=== PATIENT | male | born 1960 | race Caucasian/White ===

== ENCOUNTER → 2017-05-27 | Outpatient (CLI) | payer OTHER ==
[2017-05-27 18:16] LABS: Blood Urea Nitrogen 19 mg/dL (9-20); Non-African American GFR(MDRD) >60 (>60 ml/min/1.73 sqM)
--- NOTE | 2017-05-27 21:17 | CT ---
EXAMINATION TYPE: CT chest w con DATE OF EXAM: 05/27/2017 COMPARISON: NONE HISTORY: Left anterior costal margin mass. CT DLP: 724.00 mGycm Automated exposure control for dose reduction was used. CONTRAST: CT scan of the chest is performed with IV Contrast, patient injected with 100 mL of Omnipaque 300. FINDINGS: The lungs are clear of consolidation. There is no sign of a pulmonary mass. There is no pleural effus ion. There is no mediastinal adenopathy. Thoracic aorta shows normal size and contour. There is no si gn of aneurysm or dissection. There are no hilar masses. There is spurring in the thoracic spine. I s ee no evidence of a rib fracture. There is no evidence of soft tissue mass involving the chest wall. IMPRESSION: Negative CT scan of the chest. No evidence of a chest wall mass.
== END | disposition home or self-care (01) ==
LOC: RADCTMAIN 17:37
PROVIDERS: ATTEND Family Medicine
DX: R22.2 Localized swelling, mass and lump, trunk (principal)
CPT/HCPCS: 82565; 84520; 71260; 36415; Q9967

== ENCOUNTER 2017-07-26 06:32 | Day surgery (SDC) | payer OTHER ==
[2017-07-23 15:37] VITALS: BMI 32.1
[~2017-07-26 06:32] MED LIST: LACTATED RINGERS 1,000 ML IV SCH
[2017-07-26 07:08] VITALS: TEMP 96.1
[2017-07-26 07:22] LABS: Glucose,Whole Blood 139 mg/dL (75-99)
[2017-07-26] MEDS ORDERED: LIDOCAINE 1% INJ 10MG/ML (20 ML MDV) ONE (07:43)
[2017-07-26] MEDS ORDERED: PROPOFOL 10 MG/ML 20 ML VIAL IV ONE (07:43)
--- NOTE | 2017-07-26 07:52 | P.GSHP ---
History of Present Illness H&P Date: 07/26/17 Chief Complaint: colon cancer screening patient returned today for colonoscopy. He has not had one done previously. No bowel related complaints. No rectal bleeding or melena. No family history of colon cancer. Past Medical History Past Medical History: Diabetes Mellitus, Hyperlipidemia, Hypertension History of Any Multi-Drug Resistant Organisms: None Reported Past Surgical History: No Surgical Hx Reported Additional Past Surgical History / Comment(s): top teeth pulled Past Anesthesia/Blood Transfusion Reactions: No Reported Reaction Smoking Status: Former smoker - Past Family History Mother Family Medical History: No Reported History Medications and Allergies Home Medications Medication Instructions Recorded Confirmed Type Lisinopril [Zestril] 10 mg PO DAILY 08/31/16 07/26/17 History metFORMIN HCL 1,000 mg PO BID 08/31/16 07/26/17 History Aspirin 81 mg PO DAILY 07/23/17 07/26/17 History Atorvastatin [Lipitor] 80 mg PO DAILY 07/23/17 07/26/17 History Glimepiride [Amaryl] 4 mg PO BID 07/23/17 07/26/17 History Allergies Allergy/AdvReac Type Severity Reaction Status Date / Time No Known Allergies Allergy Verified 07/23/17 15:14 Surgical - Exam Vital Signs Temp Pulse Resp BP Pulse Ox 96.1 F L 69 20 173/92 96 07/26/17 07:01 07/26/17 07:01 07/26/17 07:01 07/26/17 07:01 07/26/17 07:01 Physical exam: General: Well-developed, well-nourished HEENT: Normocephalic, sclerae nonicteric Abdomen: Nontender, nondistended Extremities: No edema Neuro: Alert and oriented Results - Labs Abnormal Lab Results - Last 24 Hours (Table) 07/26/17 Range/Units 07:07 POC Glucose (mg/dL) 139 H (75-99) mg/dL Assessment and Plan (1) Colon cancer screening Narrative/Plan: Will proceed with colonoscopy at this time. Status: Acute
--- NOTE | 2017-07-26 08:07 | P.OP ---
Date of Procedure: 07/26/17 Procedure(s) Performed: PREOPERATIVE DIAGNOSIS: colon cancer screening POSTOPERATIVE DIAGNOSIS: sigmoid colon polyp PROCEDURE: Colonoscopy with snare polypectomy ANESTHESIA: MAC SURGEON: Rj Salinas M.D. SPECIMENS: sigmoid colon polyp ENDOSCOPIC PROCEDURE: The patient was placed on the endoscopy table in the left decubitus position. The Olympus colonoscope was inserted into the anus and passed under direct visualization to the base of the cecum. The appendiceal orifice was visualized. From that point the scope was slowly withdrawn inspecting all surfaces carefully. There were no neoplastic inflammatory or polypoid lesions throughout the cecum, ascending, transverse, and descending colon. In the sigmoid colon a small polyp was identified and removed using the snare with cautery technique. There was no visible diverticulosis. Digital rectal examination was normal. The patient was taken to the recovery room in stable condition per anesthesia guidelines. RECOMMENDATIONS: await biopsy results. Anticipate follow-up colonoscopy 5 years.
[2017-07-26 08:34] VITALS: BP 161/91; PULSE 67; RESP 18
== END 2017-07-26 08:45 | disposition home or self-care (01) ==
LOC: ORWHC2ENDO 06:32
PROVIDERS: ATTEND Surgery
DX: Z12.11 Encounter for screening for malignant neoplasm of colon (principal); D12.5 Benign neoplasm of sigmoid colon; E11.9 Type 2 diabetes mellitus without complications; Z79.84 Long term (current) use of oral hypoglycemic drugs; E78.5 Hyperlipidemia, unspecified; I10 Essential (primary) hypertension; Z87.891 Personal history of nicotine dependence; Z79.82 Long term (current) use of aspirin; Z79.899 Other long term (current) drug therapy
CPT/HCPCS: 88305; 45385; J2001; J2704

== ENCOUNTER 2018-03-24 11:24 | Emergency (ER) | payer OTHER ==
[2018-03-24 11:35] VITALS: BP 182/91; PULSE 77; RESP 18; TEMP 98
[2018-03-24] MEDS ORDERED: KETOROLAC 60 MG/2 ML VIAL IM STA (11:54)
--- NOTE | 2018-03-24 12:10 | ED ---
General Adult HPI - General Chief complaint: Back Pain/Injury Stated complaint: Lower Back Pain/Leg Pain Time Seen by Provider: 03/24/18 11:40 Source: patient, RN notes reviewed Mode of arrival: ambulatory Limitations: no limitations - History of Present Illness Initial comments: Patient 58-year-old male presented to the emergency room today with chief complaint of low back pain on the right side radiating down the right leg. Patient denies any bowel or bladder incontinence retention. Denies any specific injury. States symptoms started 4 days ago. Does admit that he has some pain radiating down approximately to the right side. States worse with certain movements. Patient denies any recent fever, chills, shortness of breath , chest pain, back pain, abdominal pain, nausea or vomiting, dysuria or hematuria, constipation or diarrhea, headaches or visual changes, or any other complaints. - Related Data Home Medications Medication Instructions Recorded Confirmed metFORMIN HCL 1,000 mg PO BID 08/31/16 03/24/18 Atorvastatin [Lipitor] 80 mg PO DAILY 07/23/17 03/24/18 Glimepiride [Amaryl] 4 mg PO BID 07/23/17 03/24/18 Fluticasone Nasal [place] [Flonase 1 spray EA NOSTRIL DAILY 03/24/18 03/24/18 Nasal [place]] Lisinopril 40 mg PO DAILY 03/24/18 03/24/18 Previous Rx's Medication Instructions Recorded Cyclobenzaprine [Flexeril] 10 mg PO TID #20 tab 03/24/18 Ibuprofen [Motrin] 800 mg PO Q6HR #30 tab 03/24/18 Allergies Allergy/AdvReac Type Severity Reaction Status Date / Time No Known Allergies Allergy Verified 03/24/18 11:49 Review of Systems ROS Statement: Those systems with pertinent positive or pertinent negative responses have been documented in the HPI. ROS Other: All systems not noted in ROS Statement are negative. Past Medical History Past Medical History: Diabetes Mellitus, Hyperlipidemia, Hypertension History of Any Multi-Drug Resistant Organisms: None Reported Past Surgical History: No Surgical Hx Reported Additional Past Surgical History / Comment(s): top teeth pulled Past Anesthesia/Blood Transfusion Reactions: No Reported Reaction Past Psychological History: No Psychological Hx Reported Smoking Status: Former smoker Past Drug Use History: Marijuana - Past Family History Mother Family Medical History: No Reported History General Exam Limitations: no limitations Course Vital Signs 03/24/18 11:32 Temperature 98.0 F Pulse Rate 77 Respiratory 18 Rate Blood Pressure 182/91 O2 Sat by Pulse 97 Oximetry Medical Decision Making - Medical Decision Making Patient's x-rays reviewed shows no acute abnormalities. Results were discussed with patient. He'll be discharged home continue anti-inflammatories for his symptoms. Patient advised follow family doctor or orthopedics for further evaluation and possible MRI for his symptoms of radicular pain coming on the right leg. Occasional bowel bladder incontinence retention. No saddle anesthesia. Patient will be discharged advised to return if symptoms increase or worsen. Disposition Clinical Impression: Acute low back pain, Lumbar radiculopathy, acute Disposition: HOME SELF-CARE Condition: Good Instructions: Acute Low Back Pain (ED) Additional Instructions: Please use medication as discussed. Please follow-up with orthopedic/family doctor in the next 2 days. Please return to emergency room if the symptoms increase or worsen or for any other concerns. Prescriptions: Cyclobenzaprine [Flexeril] 10 mg PO TID #20 tab Ibuprofen [Motrin] 800 mg PO Q6HR #30 tab Is patient prescribed a controlled substance at d/c from ED?: No Referrals: Maciel Morgan MD [Primary Care Provider] - 1-2 days Carlos Ramirez DO [Doctor of Osteopathic Medicine] - 1-2 days Time of Disposition: 12:35
--- NOTE | 2018-03-24 12:13 | XR ---
EXAMINATION TYPE: XR lumbar spine 2 or 3V DATE OF EXAM: 03/24/2018 COMPARISON: NONE HISTORY: low back pain TECHNIQUE: Three-view lumbar spine FINDINGS: There 5 lumbar-type vertebral bodies. The pedicles are intact. Mild disc space narrowing is present L4-5. Remaining disc heights are preserved. Mild spondylosis at the thoracolumbar junction. IMPRESSION: 1. Mild degenerative disc change L4-5.
== END 2018-03-24 13:10 | disposition home or self-care (01) ==
LOC: EC 11:24
DX: M54.16 Radiculopathy, lumbar region (principal); E11.9 Type 2 diabetes mellitus without complications; I10 Essential (primary) hypertension; E78.5 Hyperlipidemia, unspecified; Z79.84 Long term (current) use of oral hypoglycemic drugs; Z79.899 Other long term (current) drug therapy; Z87.891 Personal history of nicotine dependence
CPT/HCPCS: 99283; 96372; 72100; J1885

== ENCOUNTER 2018-03-25 13:03 | Emergency (ER) | payer OTHER ==
[2018-03-25 13:15] VITALS: BP 191/85; PULSE 95; RESP 18; TEMP 97.7
[2018-03-25] MEDS ORDERED: HYDROcodone/APAP 5-325MG 1 EACH TAB PO STA (13:51)
--- NOTE | 2018-03-25 14:55 | ED ---
Back Pain HPI - General Chief Complaint: Back Pain/Injury Stated Complaint: back pain - revisit Time Seen by Provider: 03/25/18 13:45 Source: patient, RN notes reviewed Mode of arrival: ambulatory Limitations: no limitations - History of Present Illness Initial Comments: 58-year-old male present emergency from chief complaint of low back pain. Patient was seen here yesterday secondary to pain. He states that the Toradol did help some but states she still has pain. Patient states that he had some hesitancy with urination but states he was able to go. Patient denies any bowel incontinence. Patient states he does have some pain that radiates down his right leg, into his right thigh region. Patient denies any abdominal pain. Patient denies any history of back pain. Patient states he did not see his PCP has normal drug ALLERGIES. - Related Data Home Medications Medication Instructions Recorded Confirmed metFORMIN HCL 1,000 mg PO BID 08/31/16 03/24/18 Atorvastatin [Lipitor] 80 mg PO DAILY 07/23/17 03/24/18 Glimepiride [Amaryl] 4 mg PO BID 07/23/17 03/24/18 Fluticasone Nasal [place] [Flonase 1 spray EA NOSTRIL DAILY 03/24/18 03/24/18 Nasal [place]] Lisinopril 40 mg PO DAILY 03/24/18 03/24/18 Previous Rx's Medication Instructions Recorded Cyclobenzaprine [Flexeril] 10 mg PO TID #20 tab 03/24/18 Ibuprofen [Motrin] 800 mg PO Q6HR #30 tab 03/24/18 Hydrocodone/Acetaminophen [[place] 1 tab PO Q6HR PRN #12 tab 03/25/18 5-325] Tamsulosin [Flomax] 0.4 mg PO DAILY #7 cap 03/25/18 Allergies Allergy/AdvReac Type Severity Reaction Status Date / Time No Known Allergies Allergy Verified 03/25/18 13:15 Review of Systems ROS Statement: Those systems with pertinent positive or pertinent negative responses have been documented in the HPI. ROS Other: All systems not noted in ROS Statement are negative. Past Medical History Past Medical History: Diabetes Mellitus, Hyperlipidemia, Hypertension History of Any Multi-Drug Resistant Organisms: None Reported Past Surgical History: No Surgical Hx Reported Additional Past Surgical History / Comment(s): top teeth pulled Past Anesthesia/Blood Transfusion Reactions: No Reported Reaction Past Psychological History: No Psychological Hx Reported Smoking Status: Former smoker Past Drug Use History: Marijuana - Past Family History Mother Family Medical History: No Reported History General Exam Limitations: no limitations General appearance: alert, in no apparent distress Head exam: Present: atraumatic, normocephalic, normal inspection Neck exam: Present: normal inspection, full ROM. Absent: tenderness, meningismus, lymphadenopathy Respiratory exam: Present: normal lung sounds bilaterally. Absent: respiratory distress, wheezes, rales, rhonchi, stridor Cardiovascular Exam: Present: regular rate, normal rhythm, normal heart sounds. Absent: systolic murmur, diastolic murmur, rubs, gallop, clicks GI/Abdominal exam: Present: soft, normal bowel sounds. Absent: distended, tenderness, guarding, rebound, rigid Extremities exam: Present: normal inspection, full ROM, normal capillary refill. Absent: tenderness, pedal edema, joint swelling, calf tenderness Back exam: Present: full ROM, paraspinal tenderness, other (Pain with right straight leg raise). Absent: tenderness, vertebral tenderness Psychiatric exam: Present: normal affect, normal mood Skin exam: Present: warm, dry, intact, normal color. Absent: rash Course Vital Signs 03/25/18 13:14 Temperature 97.7 F Pulse Rate 95 Respiratory 18 Rate Blood Pressure 191/85 O2 Sat by Pulse 98 Oximetry Medical Decision Making - Medical Decision Making 58-year-old male presents from for back pain. Patient had CT which shows degenerative disc disease, herniated disc L4-L5 patient complain of some hesitancy with urination though is able to urinate twice in the emergency department. Patient did have a bladder scan which patient did not have a large residual after second urination. Patient does not reveal evidence of urinary tract infection. Patient may be having some BPH type symptoms. Patient we discharged on Flomax and Hoven. Patient will follow-up with Dr. Ramirez orthopedic back specialist. - Lab Data Lab Results 03/25/18 Range/Units 16:23 Urine Color Yellow Urine Appearance Clear (Clear) Urine pH 6.0 (5.0-8.0) Ur Specific [place] 1.012 (1.001-1.035) Urine Protein Negative (Negative) Urine Glucose (UA) Trace H (Negative) Urine Ketones Trace H (Negative) Urine Blood Trace H (Negative) Urine Nitrite Negative (Negative) Urine Bilirubin Negative (Negative) Urine Urobilinogen <2.0 (<2.0) mg/dL Ur Leukocyte Esterase Negative (Negative) Urine RBC 2 (0-5) /hpf Urine WBC <1 (0-5) /hpf Ur Squamous Epith Cells <1 (0-4) /hpf Urine Mucus Rare H (None) /hpf Disposition Clinical Impression: Lumbar radiculopathy, acute, Acute low back pain Disposition: HOME SELF-CARE Condition: Stable Instructions: Acute Low Back Pain (ED) Additional Instructions: Please return to the Emergency Department if symptoms worsen or any other concerns. Prescriptions: Hydrocodone/Acetaminophen [[place] 5-325] 1 tab PO Q6HR PRN #12 tab PRN Reason: Pain Tamsulosin [Flomax] 0.4 mg PO DAILY #7 cap Is patient prescribed a controlled substance at d/c from ED?: Yes When asked, does pt state using other controlled substances?: No If prescribed controlled substance>3 days was MAPS reviewed?: Prescribed <3 Days If opioid is for acute pain is fill amount 7 days or less?: Yes If Rx opioid, was Start Talking consent form obtained?: Yes Referrals: Macile Morgan MD [Primary Care Provider] - 1-2 days Carlos Ramirez DO [Doctor of Osteopathic Medicine] - 1-2 days Time of Disposition: 16:35
--- NOTE | 2018-03-25 15:13 | CT ---
EXAMINATION TYPE: CT lumbar spine wo con DATE OF EXAM: 03/25/2018 3:01 PM COMPARISON: NONE HISTORY: Low back pain, no known injury. CT DLP: 965 mGycm Automated exposure control for dose reduction was used. TECHNIQUE: Unenhanced CT of the lumbar spine was performed. Bone and soft tissue window settings are submitted as well as coronal and sagittal reconstructions. FINDINGS: Moderate multilevel degenerative disc disease of the lumbar spine is seen as Schmorl's node of the superior endplate of L5, vacuum disc disease at L1-L2, anterior osteophytes, multilevel disc desiccation and facet arthropathy. There is no evidence of vertebral body height loss or malalignment of the lumbar spine. The scoliotic curvature. Sacroiliac joints are symmetric. Nonobstructing right midpole renal calculus measures approximately 5 mm. Descending thoracic aorta is upper limits of norm al size measuring 2.9 cm. L1-L2: There is a broad-based disc bulge and facet arthropathy resulting in mild bilateral neural for aminal narrowing. No spinal canal stenosis. L2-L3: There is a broad-based disc bulge and minimal facet arthropathy resulting in minimal bilateral neural foraminal narrowing, left greater than right is the disc bulges left eccentric. No spinal can al stenosis. L3-L4: There is a broad-based disc bulge that in combination with facet arthropathy and ligamentum fl avum buckling create moderate to severe right neural foraminal narrowing and moderate left neural for aminal narrowing as these bulges right eccentric. There is also resultant mild spinal canal stenosis. L4-L5: A focal central disc protrusion/herniation is seen superimposed upon a broad-based disc bulge creating mild to moderate spinal canal stenosis and mild bilateral neural foraminal narrowing. Facet arthropathy is also seen at this level. L5-S1: There is a broad-based disc bulge and facet arthropathy without significant neural foraminal n arrowing or spinal canal stenosis. IMPRESSION: 1. Focal central disc herniation at L4-L5 creating mild to moderate spinal canal stenosis and mild bi lateral neural foraminal narrowing. MRI could be performed to more accurately assess degree of neurof oraminal narrowing and spinal canal stenosis. 2. Moderate multilevel degenerative disc disease resulting in other levels of spinal canal stenosis i n variable degrees of neural foraminal narrowing as discussed above. 3. No evidence of vertebral body height loss or malalignment of the lumbar spine.
[2018-03-25] MEDS ORDERED: TAMSULOSIN 0.4 MG CAP.ER.24H PO STA (15:38)
[2018-03-25 16:32] LABS: Appearance,Urine Clear (Clear); Bilirubin,Urine Negative (Negative); Blood,Urine Trace (Negative); Color,Urine Yellow; Glucose,Urine (UA) Trace (Negative); Ketones,Urine Trace (Negative); Leukocyte Esterase,Urine Negative (Negative); Mucus,Urine Rare /hpf; Nitrite,Urine Negative (Negative); Protein,Urine Negative (Negative); RBC,Urine 2 /hpf (0-5); Specific Gravity,Urine 1.012 (1.001-1.035); Squamous Epithelial Cell,Urine <1 /hpf (0-4); Urobilinogen,Urine <2.0 mg/dL (<2.0); WBC,Urine <1 /hpf (0-5)
== END 2018-03-25 16:55 | disposition home or self-care (01) ==
LOC: EC 13:03
DX: M51.16 Intervertebral disc disorders with radiculopathy, lumbar region (principal); E11.9 Type 2 diabetes mellitus without complications; E78.5 Hyperlipidemia, unspecified; I10 Essential (primary) hypertension; Z79.84 Long term (current) use of oral hypoglycemic drugs; Z79.899 Other long term (current) drug therapy; Z87.891 Personal history of nicotine dependence
CPT/HCPCS: 51798; 72131; 81001; 87086; 99284

== ENCOUNTER 2018-04-02 11:01 | Emergency (ER) | payer OTHER ==
[2018-04-02 11:47] VITALS: RESP 18
[2018-04-02] MEDS ORDERED: ORPHENADRINE 30 MG/ML 2 ML VIAL IM STA (12:34)
[2018-04-02] MEDS ORDERED: KETOROLAC 60 MG/2 ML VIAL IM STA (12:34)
[2018-04-02] MEDS ORDERED: traMADol 50 MG STARTER PACK 3 TAB BTL PO STA (12:34)
[2018-04-02 12:46] LABS: Appearance,Urine Clear (Clear); Bilirubin,Urine Negative (Negative); Blood,Urine Negative (Negative); Color,Urine Yellow; Glucose,Urine (UA) Trace (Negative); Ketones,Urine 2+ (Negative); Leukocyte Esterase,Urine Negative (Negative); Nitrite,Urine Negative (Negative); PH, Urine 6.5 (5.0-8.0); Protein,Urine Trace (Negative); Specific Gravity,Urine 1.013 (1.001-1.035); Urobilinogen,Urine <2.0 mg/dL (<2.0)
--- NOTE | 2018-04-02 12:56 | ED ---
Back Pain HPI - General Chief Complaint: Back Pain/Injury Stated Complaint: back pain Time Seen by Provider: 04/02/18 11:59 Source: patient, RN notes reviewed, old records reviewed Limitations: no limitations - History of Present Illness Initial Comments: This patient is a 58 year old male with CC of two weeks of lower back pain radiating down his R leg. He reports no fall or twisting motion to cause this. HE has been on steriods, pain medication, and muscle relaxer. He reports he is out of his muscle relaxer and does not like taking pain medication due to constipation. He also reports that his blood sugar was elevated flowers to steriods. Patient denies saddle anesthesias. - Related Data Home Medications Medication Instructions Recorded Confirmed metFORMIN HCL 1,000 mg PO BID 08/31/16 04/02/18 Atorvastatin [Lipitor] 80 mg PO DAILY 07/23/17 04/02/18 Glimepiride [Amaryl] 4 mg PO BID 07/23/17 04/02/18 Fluticasone Nasal [place] [Flonase 1 spray EA NOSTRIL DAILY 03/24/18 04/02/18 Nasal [place]] Lisinopril 40 mg PO DAILY 03/24/18 04/02/18 Previous Rx's Medication Instructions Recorded Cyclobenzaprine [Flexeril] 10 mg PO TID #20 tab 03/24/18 Ibuprofen [Motrin] 800 mg PO Q6HR #30 tab 03/24/18 Hydrocodone/Acetaminophen [[place] 1 tab PO Q6HR PRN #12 tab 03/25/18 5-325] Tamsulosin [Flomax] 0.4 mg PO DAILY #7 cap 03/25/18 Cyclobenzaprine [Flexeril] 10 mg PO TID #15 tab 04/02/18 Ibuprofen [Motrin] 600 mg PO Q8HR PRN #20 tab 04/02/18 traMADol HCL [Ultram] 50 mg PO Q4HR PRN 3 Days #18 tab 04/02/18 Allergies Allergy/AdvReac Type Severity Reaction Status Date / Time No Known Allergies Allergy Verified 04/02/18 12:58 Review of Systems ROS Statement: Those systems with pertinent positive or pertinent negative responses have been documented in the HPI. ROS Other: All systems not noted in ROS Statement are negative. Past Medical History Past Medical History: Diabetes Mellitus, Hyperlipidemia, Hypertension History of Any Multi-Drug Resistant Organisms: None Reported Past Surgical History: No Surgical Hx Reported Additional Past Surgical History / Comment(s): top teeth pulled Past Anesthesia/Blood Transfusion Reactions: No Reported Reaction Past Psychological History: No Psychological Hx Reported Smoking Status: Former smoker Past Drug Use History: Marijuana - Past Family History Mother Family Medical History: No Reported History General Exam - General Exam Comments Initial Comments: Well appearing 58 year old male, no distress. Limitations: no limitations General appearance: alert Head exam: Present: atraumatic, normocephalic, normal inspection Eye exam: Present: normal appearance, PERRL, EOMI. Absent: scleral icterus, conjunctival injection, periorbital swelling ENT exam: Present: normal exam, mucous membranes moist Neck exam: Present: normal inspection. Absent: tenderness, meningismus, lymphadenopathy Respiratory exam: Present: normal lung sounds bilaterally. Absent: respiratory distress, wheezes, rales, rhonchi, stridor Cardiovascular Exam: Present: regular rate, normal rhythm, normal heart sounds. Absent: systolic murmur, diastolic murmur, rubs, gallop, clicks Extremities exam: Present: normal inspection, tenderness (lumbar and R sciatic notch tenderness. Positive straight leg test. ), normal capillary refill. Absent: full ROM, pedal edema, joint swelling, calf tenderness Psychiatric exam: Present: normal affect, normal mood Skin exam: Present: warm, dry, intact, normal color. Absent: rash Course Vital Signs 04/02/18 04/02/18 11:44 13:16 Temperature 97.9 F 98.1 F Pulse Rate 103 H 75 Respiratory 18 18 Rate Blood Pressure 140/107 159/91 O2 Sat by Pulse 99 96 Oximetry Medical Decision Making - Medical Decision Making 58 year old male with R sciatic back pain for 2 weeks, out of muscle relaxer and pain medication. Patient has tenderness and positive straight leg test. REviewed CT scan of lumbar spine from last week and he has L4-L5 disc herniation and spinal canal stenosis. Discussed he needs to see a occupational health specialist. Patietn given Norflex, toradol, and ultram starter pack. Discussed follow up and return parameters discussed. Will start patient on flexeril and ultram. - Lab Data Lab Results 04/02/18 Range/Units 12:28 Urine Color Yellow Urine Appearance Clear (Clear) Urine pH 6.5 (5.0-8.0) Ur Specific [place] 1.013 (1.001-1.035) Urine Protein Trace H (Negative) Urine Glucose (UA) Trace H (Negative) Urine Ketones 2+ H (Negative) Urine Blood Negative (Negative) Urine Nitrite Negative (Negative) Urine Bilirubin Negative (Negative) Urine Urobilinogen <2.0 (<2.0) mg/dL Ur Leukocyte Esterase Negative (Negative) - Radiology Data Radiology results: report reviewed Disposition Clinical Impression: Right-sided low back pain with sciatica Disposition: HOME SELF-CARE Condition: Good Instructions: Acute Low Back Pain (ED) Additional Instructions: Patient should follow-up with primary care provider and occupational health specialist. Patient should take the medications as prescribed. Return to emergency department if any alarming signs or symptoms occur. Prescriptions: Cyclobenzaprine [Flexeril] 10 mg PO TID #15 tab Ibuprofen [Motrin] 600 mg PO Q8HR PRN #20 tab PRN Reason: Pain traMADol HCL [Ultram] 50 mg PO Q4HR PRN 3 Days #18 tab PRN Reason: Pain Is patient prescribed a controlled substance at d/c from ED?: Yes When asked, does pt state using other controlled substances?: No If prescribed controlled substance>3 days was MAPS reviewed?: Prescribed <3 Days If opioid is for acute pain is fill amount 7 days or less?: Yes If Rx opioid, was Start Talking consent form obtained?: No Referrals: Maciel Morgan MD [Primary Care Provider] - 1-2 days Carlos Ramirez DO [Doctor of Osteopathic Medicine] - 1-2 days Time of Disposition: 12:54
[2018-04-02 13:17] VITALS: BP 159/91; PULSE 75; TEMP 98.1
== END 2018-04-02 13:16 | disposition home or self-care (01) ==
LOC: EC 11:01
DX: M54.41 Lumbago with sciatica, right side (principal); M51.16 Intervertebral disc disorders with radiculopathy, lumbar region; M48.061 Spinal stenosis, lumbar region without neurogenic claudication; K59.00 Constipation, unspecified; E78.5 Hyperlipidemia, unspecified; I10 Essential (primary) hypertension; E09.65 Drug or chemical induced diabetes mellitus with hyperglycemia; T38.0X5A Adverse effect of glucocorticoids and synthetic analogues, initial encounter; Z87.891 Personal history of nicotine dependence; Z79.51 Long term (current) use of inhaled steroids; Z79.84 Long term (current) use of oral hypoglycemic drugs; Z79.899 Other long term (current) drug therapy
CPT/HCPCS: 81003; 99284; 96372 ×2; J2360; J1885

== ENCOUNTER → 2018-04-04 | Outpatient (CLI) | payer OTHER ==
--- NOTE | 2018-04-04 13:14 | CT ---
EXAMINATION TYPE: CT lumbar spine wo con DATE OF EXAM: 04/04/2018 12:07 PM COMPARISON: CT lumbar spine from 10 days ago. HISTORY: Severe low back pain CT DLP: 1303.1 mGycm Automated exposure control for dose reduction was used. Unenhanced CT of the lumbar spine was performed. Bone and soft tissue window settings are submitted as well as coronal and sagittal reconstructions. 5 lumbar-type vertebra are redemonstrated. Lumbar spine redemonstrates straightened alignment. There is no acute fracture or dislocation seen. There is stable mild to moderate disc space narrowing with mild anterior spurring L4-L5 level. Vertebral body heights are maintained. There is vacuum disc pheno janel with mild disc space narrowing L1-L2 level as well as moderate to severe anterior and lateral s purring redemonstrated. Suspect subchondral cystic change L5-S1 level. Posterior disc herniations are present at L3-L4 through L5-S1 levels on sagittal images slightly most prominent L3-L4 level. Axial images at T12-L1 level show mild facet arthropathy otherwise are felt within normal limits. Axial images at L1-L2 level redemonstrate mild to moderate broad disc bulge minimally effacing anteri or thecal sac with vacuum disc phenomenon. There is mild facet arthropathy bilaterally. Bilateral maria c ral foramina remain patent. No significant change from prior. Axial images at L2-L3 level show mild facet arthropathy and mild broad disc bulge minimally effacing anterior thecal sac, there is mild left greater than right anterior-inferior neural foraminal narrowi ng. There is no significant change from prior. Axial images at L3-L4 level show moderate facet degenerative changes bilaterally. There is moderate b road-based posterior disc protrusion. There is anterior and posterior lateral spinal canal effacement causing mild spinal canal stenosis. There is moderate to severe right greater than left neural [place] inal narrowing. Encroachment on right L3 nerve is felt present with loss of surrounding fat seen on s agittal images. No significant change from prior. Axial images at L4-L5 level show moderate facet degenerative changes bilaterally. There is broad disc bulge with central disc protrusion effacing anterior thecal sac. There is moderate left and mild rig ht-sided anterior inferior neural foraminal narrowing. There is no significant change from prior. Axial images at L5-S1 level redemonstrate moderate facet degenerative changes bilaterally. There is c entral disc protrusion seen but spinal canal is preserved. Bilateral neural foramina are patent. There is moderate atherosclerotic change in the visualized abdominal aorta. Previously visualized rig ht upper to mid pole 5 mm calculus is not clearly seen on current exam may be outside Field of view. IMPRESSION: Straightening of lumbar spine with multilevel degenerative changes most prominent at L3-L 4 level as detailed above. No significant change from CT exam performed 10 days earlier.
== END ==
LOC: RADCTMAIN 11:43
PROVIDERS: ATTEND Family Medicine
DX: M47.816 Spondylosis without myelopathy or radiculopathy, lumbar region (principal)
CPT/HCPCS: 72131

== ENCOUNTER 2018-04-21 12:46 | Observation (INO) | payer OTHER ==
[2018-04-21] MEDS ORDERED: SODIUM CHLORIDE 0.9% 1,000 ML IV STA ×2 (14:12)
[2018-04-21] MEDS ORDERED: ORPHENADRINE 30 MG/ML 2 ML VIAL IVP STA (14:13)
[2018-04-21] MEDS ORDERED: KETOROLAC 30 MG/ML 1 ML VIAL IVP STA (14:13)
[2018-04-21] MEDS ORDERED: PANTOPRAZOLE 40 MG/10 ML VIAL IVP STA (14:13)
[2018-04-21] MEDS ORDERED: MAG HYDROX/AL HYDROX/SIMETH 30 ML, HYOSCYAMINE ELIXIR 10 ML, CIMETIDINE HCL 300 MG, LID... PO STA ×4 (14:13)
--- NOTE | 2018-04-21 14:15 | ED ---
Back Pain HPI - General Chief Complaint: Back Pain/Injury Stated Complaint: sciatic pain Time Seen by Provider: 04/21/18 13:43 Source: patient, RN notes reviewed, old records reviewed Limitations: no limitations - History of Present Illness Initial Comments: Patient is a 50-year-old male chief complaint of some right-sided back lumbar pain radiates down his right leg. He has had pain over the anterior aspect of the thigh. He has had 2 CT scans x-rays in the emergency department within the past 5 weeks. There is evidence of lumbar disc disease. Patient reports that his MRI came back normal and primary care provider states that is nothing wrong with him. He try to follow-up with a psychological operations specialist but they will not take it with his insurance. Patient states that he has been taking multiple pain medications and now is feeling nauseous and has developed some abdominal pain related to taking the medications. He reports that his lost 30 pounds within the past few weeks due to a poor appetite. He denies any fever or chills. Patient also reports that he is having some numbness and tingling down the first through third fingers of his right hand. - Related Data Home Medications Medication Instructions Recorded Confirmed metFORMIN HCL 1,000 mg PO BID 08/31/16 04/21/18 Atorvastatin [Lipitor] 80 mg PO DAILY 07/23/17 04/21/18 Glimepiride [Amaryl] 4 mg PO BID 07/23/17 04/21/18 Fluticasone Nasal [place] [Flonase 1 spray EA NOSTRIL DAILY 03/24/18 04/21/18 Nasal [place]] Lisinopril 40 mg PO DAILY 03/24/18 04/21/18 Ergocalciferol (Vitamin D2) 50,000 unit PO MO 04/21/18 04/21/18 [Vitamin D2] Multivitamins, Thera [Multivitamin 1 tab PO DAILY 04/21/18 04/21/18 (formulary)] Allergies Allergy/AdvReac Type Severity Reaction Status Date / Time No Known Allergies Allergy Verified 04/21/18 13:51 Review of Systems ROS Statement: Those systems with pertinent positive or pertinent negative responses have been documented in the HPI. ROS Other: All systems not noted in ROS Statement are negative. Past Medical History Past Medical History: Diabetes Mellitus, Hyperlipidemia, Hypertension Additional Past Medical History / Comment(s): back pain History of Any Multi-Drug Resistant Organisms: None Reported Past Surgical History: No Surgical Hx Reported Additional Past Surgical History / Comment(s): top teeth pulled Past Anesthesia/Blood Transfusion Reactions: No Reported Reaction Past Psychological History: No Psychological Hx Reported Smoking Status: Former smoker Past Alcohol Use History: None Reported Past Drug Use History: Marijuana - Past Family History Mother Family Medical History: No Reported History General Exam - General Exam Comments Initial Comments: this patient's a 58-year-old male. Alert and oriented. No acute distress. Limitations: no limitations General appearance: alert, in no apparent distress Head exam: Present: atraumatic, normocephalic, normal inspection Eye exam: Present: normal appearance, PERRL, EOMI. Absent: scleral icterus, conjunctival injection, periorbital swelling ENT exam: Present: normal exam, mucous membranes moist Neck exam: Present: normal inspection. Absent: tenderness, meningismus, lymphadenopathy Respiratory exam: Present: normal lung sounds bilaterally. Absent: respiratory distress, wheezes, rales, rhonchi, stridor Cardiovascular Exam: Present: regular rate GI/Abdominal exam: Present: soft, tenderness (right lower quadrant suprapubic tenderness. He reports pain radiates down his right leg while palpating the right lower quadrant. Left upper quadrant tenderness as well. ), normal bowel sounds. Absent: distended, guarding, rebound, rigid Extremities exam: Present: normal inspection, full ROM, normal capillary refill. Absent: tenderness, pedal edema, joint swelling, calf tenderness Back exam: Present: normal inspection, tenderness (R Hip and lumbar spine) Neurological exam: Present: alert, oriented X3, CN II-XII intact Psychiatric exam: Present: normal affect, normal mood Skin exam: Present: warm, dry, intact, normal color. Absent: rash Course Vital Signs 04/21/18 04/21/18 13:02 16:19 Temperature 98.0 F Pulse Rate 107 H 80 Respiratory 18 20 Rate Blood Pressure 155/100 147/92 O2 Sat by Pulse 98 96 Oximetry Medical Decision Making - Medical Decision Making 58-year-old male with main complaint of right-sided back pain sciatica pain. Patient also reports he's been having nausea and unable to eat 30 pound weight loss in the past month. Patient's labwork was reviewed and unremarkable. He is had supple evaluations for his back. The emergency room. He reports he has been taking a lot of pain medication on an empty stomach. Initially this could be related to gastric ulcer disease. Patient's did complain of some abdominal pain as well. Due to this abdominal pain back pain and to complete a CT abdomen and pelvis with contrast. There is evidence of some possibility of abnormalities on the pancreatic head. Evidence of hepatomegaly. Again patient' s lab work including amylase and lipase are within normal limits. He reports he just does not better after Norflex and all Toradol through the IV. I discussed the case with Dr. Felipe. With the increased weight loss and abdomen normal pancreatic finding on CT Dr. Morgan would like to keep Patient for observation. Possibility consult for orthopedic due to the right leg sciatica. - Lab Data Result diagrams: 04/21/18 15:15 04/21/18 15:15 Lab Results 04/21/18 04/21/18 04/21/18 Range/Units 15:15 15:15 16:25 WBC 8.8 (3.8-10.6) k/uL RBC 5.23 (4.30-5.90) m/uL Hgb 15.5 (13.0-17.5) gm/dL Hct 43.7 (39.0-53.0) % MCV 83.6 (80.0-100.0) fL MCH 29.6 (25.0-35.0) pg MCHC 35.4 (31.0-37.0) g/dL RDW 12.7 (11.5-15.5) % Plt Count 357 (150-450) k/uL Neutrophils % 70 % Lymphocytes % 21 % Monocytes % 7 % Eosinophils % 1 % Basophils % 0 % Neutrophils # 6.2 (1.3-7.7) k/uL Lymphocytes # 1.8 (1.0-4.8) k/uL Monocytes # 0.6 (0-1.0) k/uL Eosinophils # 0.1 (0-0.7) k/uL Basophils # 0.0 (0-0.2) k/uL Sodium 138 (137-145) mmol/L Potassium 4.3 (3.5-5.1) mmol/L Chloride 103 (98-107) mmol/L Carbon Dioxide 20 L (22-30) mmol/L Anion Gap 15 mmol/L BUN 14 (9-20) mg/dL Creatinine 0.70 (0.66-1.25) mg/dL Est GFR (CKD-EPI)AfAm >90 (>60 ml/min/1.73 sqM) Est GFR (CKD-EPI)NonAf >90 (>60 ml/min/1.73 sqM) Glucose 178 H (74-99) mg/dL Calcium 9.9 (8.4-10.2) mg/dL Total Bilirubin 0.6 (0.2-1.3) mg/dL AST 19 (17-59) U/L ALT 35 (21-72) U/L Alkaline Phosphatase 84 (38-126) U/L C-Reactive Protein 6.6 (<10.0) mg/L Total Protein 7.5 (6.3-8.2) g/dL Albumin 4.6 (3.5-5.0) g/dL Lipase 83 (23-300) U/L Urine Color Yellow Urine Appearance Clear (Clear) Urine pH 6.5 (5.0-8.0) Ur Specific [place] 1.021 (1.001-1.035) Urine Protein Negative (Negative) Urine Glucose (UA) 4+ H (Negative) Urine Ketones Trace H (Negative) Urine Blood Negative (Negative) Urine Nitrite Negative (Negative) Urine Bilirubin Negative (Negative) Urine Urobilinogen <2.0 (<2.0) mg/dL Ur Leukocyte Esterase Negative (Negative) Urine Opiates Screen Not Detected (NotDetected) Ur Oxycodone Screen Not Detected (NotDetected) Urine Methadone Screen Not Detected (NotDetected) Ur Propoxyphene Screen Not Detected (NotDetected) Ur Barbiturates Screen Not Detected (NotDetected) U Tricyclic Antidepress Not Detected (NotDetected) Ur Phencyclidine Scrn Not Detected (NotDetected) Ur Amphetamines Screen Not Detected (NotDetected) U Methamphetamines Scrn Not Detected (NotDetected) U Benzodiazepines Scrn Not Detected (NotDetected) Urine Cocaine Screen Not Detected (NotDetected) U Marijuana (THC) Screen Detected H (NotDetected) - Radiology Data Radiology results: report reviewed CT shows hepatomegaly. Probable hepatic steatosis. Difficult to exclude pancreatic head mass. Pancreatic MRI may be of benefit. Nonobstructive right- sided nephrolithiasis. Degenerative disc disease is facet arthropathy. Disposition Clinical Impression: Sciatica, right side, Pancreatic abnormality Disposition: [facility] Condition: Stable Is patient prescribed a controlled substance at d/c from ED?: No When asked, does pt state using other controlled substances?: No If prescribed controlled substance>3 days was MAPS reviewed?: No If opioid is for acute pain is fill amount 7 days or less?: No If Rx opioid, was Start Talking consent form obtained?: No Referrals: Maciel Morgan MD [Primary Care Provider] - 1-2 days Time of Disposition: 17:33
[2018-04-21] MEDS ORDERED: ONDANSETRON 4 MG/2 ML VIAL IVP STA (14:20)
[2018-04-21 15:35] LABS: Basophils % (A) 0 %; Eosinophils # (A) 0.1 k/uL (0-0.7); Eosinophils % (A) 1 %; HCT 43.7 % (39.0-53.0); HGB 15.5 gm/dL (13.0-17.5); Lymphocytes # (A) 1.8 k/uL (1.0-4.8); Lymphocytes % (A) 21 %; MCH 29.6 pg (25.0-35.0); MCHC 35.4 g/dL (31.0-37.0); MCV 83.6 fL (80.0-100.0); Mean Platelet Volume 6.3; Monocytes # (A) 0.6 k/uL (0-1.0); Monocytes % (A) 7 %; Neutrophils # (A) 6.2 k/uL (1.3-7.7); Neutrophils % (A) 70 %; Platelet Count 357 k/uL (150-450); RBC 5.23 m/uL (4.30-5.90); RDW 12.7 % (11.5-15.5); WBC 8.8 k/uL (3.8-10.6)
[2018-04-21 15:47] LABS: ALT 35 U/L (21-72); AST 19 U/L (17-59); Albumin 4.6 g/dL (3.5-5.0); Alkaline Phosphatase 84 U/L (38-126); Anion Gap 15 mmol/L; Blood Urea Nitrogen 14 mg/dL (9-20); C Reactive Protein 6.6 mg/L (<10.0); Calcium 9.9 mg/dL (8.4-10.2); Carbon Dioxide 20 mmol/L (22-30); Chloride 103 mmol/L (98-107); Glucose 178 mg/dL (74-99); Lipase 83 U/L (23-300); Potassium 4.3 mmol/L (3.5-5.1); Sodium 138 mmol/L (137-145); Total Bilirubin 0.6 mg/dL (0.2-1.3); Total Protein 7.5 g/dL (6.3-8.2)
--- NOTE | 2018-04-21 16:36 | CT ---
EXAMINATION TYPE: CT abdomen pelvis w con DATE OF EXAM: 04/21/2018 COMPARISON: HISTORY: 60lb weight loss over past month. Low back pain, worse on right side. CT DLP: 1491 mGycm Automated exposure control for dose reduction was used. TECHNIQUE: Helical acquisition of images from the lung bases through the pelvis have been completed. CONTRAST: Performed without Oral Contrast and with IV Contrast, patient injected with 100 mL of Isovue M300. FINDINGS: Coronary artery calcification noted. LUNG BASES: No significant abnormality is appreciated. AORTA: No significant abnormality is appreciated. LIVER/GB: Liver shows low attenuation and is enlarged. Gallbladder is normal. PANCREAS: Density in the head of the pancreas is somewhat increased as compared to the remainder of t he gland. SPLEEN: No significant abnormality is seen. ADRENALS: No significant abnormality is seen. KIDNEYS: Nonobstructive 3 mm to 4 mm calculus present in the midpole of the right kidney. REPRODUCTIVE ORGANS: Prostate is enlarged and shows associated calcification BOWEL: No significant abnormality is seen. The appendix is normal. FREE AIR: No Free Air visible. ASCITES: None visible. PELVIC ADENOPATHY: None visualized. RETROPERITONEAL ADENOPATHY: No Retroperitoneal Adenopathy visible. URINARY BLADDER: No significant abnormality is seen. OSSEOUS STRUCTURES: Degenerative disc changes are present in the visualized spine, facet arthropathy is present at the lower lumbar levels. Hypertrophic change at sacroiliac joints may be due to degene rative change. IMPRESSION: HEPATOMEGALY, PROBABLE HEPATIC STEATOSIS. DIFFICULT TO EXCLUDE PANCREATIC HEAD MASS, PANCREATIC MRI M AY BE OF BENEFIT INDICATED. NONOBSTRUCTIVE RIGHT-SIDED NEPHROLITHIASIS. Degenerative disc disease and facet arthropathy, additional findings above.
[2018-04-21 16:41] LABS: Appearance,Urine Clear (Clear); Bilirubin,Urine Negative (Negative); Blood,Urine Negative (Negative); Color,Urine Yellow; Glucose,Urine (UA) 4+ (Negative); Ketones,Urine Trace (Negative); Leukocyte Esterase,Urine Negative (Negative); Nitrite,Urine Negative (Negative); PH, Urine 6.5 (5.0-8.0); Protein,Urine Negative (Negative); Specific Gravity,Urine 1.021 (1.001-1.035); Urobilinogen,Urine <2.0 mg/dL (<2.0)
[2018-04-21 17:02] LABS: Amphetamine Screen,Urine Not Detected (NotDetected); Barbiturate Screen,Urine Not Detected (NotDetected); Benzodiazepines Screen,Urine Not Detected (NotDetected); Cocaine Screen,Urine Not Detected (NotDetected); Methadone Screen, Urine Not Detected (NotDetected); Opiate Screen,Urine Not Detected (NotDetected); Oxycodone Screen, Urine Not Detected (NotDetected); Phencyclidine Screen,Urine Not Detected (NotDetected); Tricyclic Antidepressant,Urine Not Detected (NotDetected); Urn Cannabinoid Scrn Detected (NotDetected)
[2018-04-21] MEDS ORDERED: LORazepam 2 MG/ML INJ IV PRN (17:34)
[2018-04-21] MEDS ORDERED: IBUPROFEN 400 MG TAB PO PRN (17:34)
[2018-04-21] MEDS ORDERED: ACETAMINOPHEN TAB 325 MG TAB PO PRN (17:34)
[2018-04-21] MEDS ORDERED: ONDANSETRON 4 MG/2 ML VIAL IVP PRN (17:34)
[2018-04-21] MEDS ORDERED: NALOXONE 0.4 MG/ML 1 ML VIAL IV PRN (17:34)
[2018-04-21] MEDS ORDERED: ERGOCALCIFEROL 50,000 UNIT CAP PO SCH (19:00)
[2018-04-21 20:22] LABS: Glucose,Whole Blood 145 mg/dL (75-99)
[2018-04-21 20:37] VITALS: BMI 28.6
[2018-04-21] MEDS: GLIMEPIRIDE 4 MG TAB PO SCH (20:43)
[2018-04-21] MEDS: metFORMIN 500 MG TAB PO SCH (20:43)
[2018-04-21] MEDS: KETOROLAC 30 MG/ML 1 ML VIAL IVP PRN (20:44)
[2018-04-21] MEDS: SODIUM CHLORIDE 0.9% 1,000 ML IV SCH (20:44)
[2018-04-22] MEDS: MORPHINE SULFATE 2 MG/ML SYRINGE IV PRN ×3 (00:20→19:01)
[2018-04-22] MEDS: KETOROLAC 30 MG/ML 1 ML VIAL IVP PRN ×3 (02:10→21:53)
[2018-04-22] MEDS: SODIUM CHLORIDE 0.9% 1,000 ML IV SCH ×2 (03:43→14:16)
[2018-04-22 07:02] LABS: Glucose,Whole Blood 110 mg/dL (75-99)
[2018-04-22] MEDS: LISINOPRIL 20 MG TAB PO SCH (08:12)
[2018-04-22] MEDS: ATORVASTATIN 80 MG TAB PO SCH (08:12)
[2018-04-22] MEDS: GLIMEPIRIDE 4 MG TAB PO SCH ×2 (08:12→16:33)
[2018-04-22] MEDS: metFORMIN 500 MG TAB PO SCH ×2 (08:12→16:33)
[2018-04-22] MEDS: FLUTICASONE 50MCG/SPRAY NASAL 16GM EA NOSTRIL SCH (08:13)
[2018-04-22] MEDS ORDERED: PANTOPRAZOLE 40 MG/10 ML VIAL IV SCH (09:00)
[2018-04-22 12:19] LABS: Glucose,Whole Blood 113 mg/dL (75-99)
--- NOTE | 2018-04-22 14:49 | HP ---
HISTORY AND PHYSICAL CHIEF COMPLAINT: Back pain. HISTORY OF PRESENT ILLNESS: This gentleman came to emergency room complaining of back pain. It is in the sacral area and he has had this for some time. While I was in the emergency room, it was identified that he may have a pancreatic mass. He has been losing weight. He has had no pain in the epigastric or upper LS spine area. REVIEW OF SYSTEMS: He denies any headaches, neurologic deficits, change in vision, hearing, shortness of breath, cough, hemoptysis, palpitations, abdominal pain, nausea, vomiting, hematemesis, melena, hematochezia, jaundice, hematuria, frequency, urgency, etc. He is diabetic. Past medical history, family history and personal and social histories reveal he is not allergic to any medication. He takes: 1. Flexeril. 2. Motrin p.r.n. 3. He is on glimepiride 4 mg twice a day. 4. Atorvastatin 80 mg q.h.s. 5. Lisinopril 40 mg once a day. 6. Metformin 1 g twice a day. 7. Vitamin D3 fifty thousand units a month. 8. 81 mg of aspirin. He does not smoke. He has been losing weight. PHYSICAL EXAM: Blood blood pressure 122/88, pulse 104, respirations of 18. He is afebrile. In general, appeared to be well-developed, well-nourished, in no acute distress. Skin color is normal, skin is warm, dry. Lymph nodes are not enlarged. Head, ears, eyes, nose, mouth, and throat were normal, neck veins not distended. Thyroid is not enlarged. Chest is clear. Cardiac exam is normal. Abdomen is soft, nontender. There are no masses or visceromegaly. Extremities are normal neurological is intact. IMPRESSION: 1. Low back pain. 2. Possible pancreatic mass. 3. Type 2 diabetes. PLAN: 1. Bed rest. 2. IV fluids. 3. CA-19-9. 4. Oncology consult. MMODL / IJN: [id number] /
--- NOTE | 2018-04-22 15:22 | PN ---
PROGRESS NOTE CHIEF COMPLAINT: Back pain and possible mass in the pancreas with weight loss. HISTORY OF PRESENT ILLNESS: This gentleman is having quite a bit of difficulty with pain in the sacral area and also with the left shoulder. His blood pressure is also elevated. PHYSICAL EXAM: CHEST: Clear. Cardiac exam is normal. Abdomen is soft and nontender. Blood pressure 155/100. IMPRESSION: 1. Acute low back pain. 2. Possible lesion of the pancreas. 3. Left shoulder pain. 4. Hypertension. PLAN: 1. Continue workup for possible pancreatic lesion. 2. Oncology consult. MMODL / IJN: [id number] /
[2018-04-22] MEDS: MULTIVITAMINS, THERA 1 EACH TAB PO SCH (16:33)
[2018-04-22 17:36] LABS: Glucose,Whole Blood 98 mg/dL (75-99)
--- NOTE | 2018-04-22 19:17 | P.CONS ---
History of Present Illness - Reason for Consult Consult date: 04/22/18 Abnormal weight loss, possible pancreatic mass - History of Present Illness The patient is a 58-year-old white male with overall well controlled medical problems. The patient has had degenerative arthritis and some chronic back pain off and on which was fairly tolerable. However on 03/24/18, the patient developed marked increase in lower back pain, leading him to come to the emergency room. He had recurrent emergency room visit since with CT of the lumbar spine showing evidence of degenerative disease including disc herniation at the L4 level. The patient was started on pain medications at that time and states that since then his appetite has been reduced. He also had 2-3 days of significant nausea and vomiting following which he reported very low oral intake for another 2-3 days. Since the onset of low back pain, he had lost about 30 pounds. He came into the emergency room with similar complaints. This time he had a CT of the abdomen and pelvis, which showed increased density in the head of the pancreas, with mass not ruled out, as well as increased hypoattenuation throughout the liver, suggestive of steatosis, with diffuse metastasis not ruled out. The patient was admitted, and consult placed for further evaluation and recommendations The patient denied any prior history of malignancy. He states that he used to drink a fair amount of alcohol several years ago but denies being an alcoholic. He quit smoking about 11-12 years ago. He denied any family history of malignancy or history of pancreatitis. He is up-to-date with his colonoscopy, which was performed in 07/30 with a small adenomatous polyp removed. He also had chest imaging with a chest CT in for concerns for a chest wall mass, which was negative. Review of Systems Constitutional: Reports chronic pain, Reports poor appetite, Reports weight loss Eyes: denies blurred vision, denies pain Ears, nose, mouth and throat: Denies headache, Denies sore throat Cardiovascular: Denies chest pain, Denies shortness of breath Respiratory: Denies cough Gastrointestinal: Reports loss of appetite, Reports nausea, Reports vomiting Genitourinary: Reports as per HPI Musculoskeletal: Reports as per HPI, Reports shooting leg pain Integumentary: Denies pruritus, Denies rash Neurological: Denies numbness, Denies weakness Psychiatric: Denies anxiety, Denies depression Endocrine: Reports high blood sugars, Reports weight change, Denies fatigue Hematologic/Lymphatic: Reports as per HPI Past Medical History Past Medical History: Diabetes Mellitus, Hyperlipidemia, Hypertension Additional Past Medical History / Comment(s): back pain History of Any Multi-Drug Resistant Organisms: None Reported Past Surgical History: No Surgical Hx Reported Additional Past Surgical History / Comment(s): top teeth pulled, broke his nose with repair. In the early 70's , had an issue with his colon and they straightened it out. Past Anesthesia/Blood Transfusion Reactions: No Reported Reaction Smoking Status: Former smoker - Past Family History Mother Family Medical History: No Reported History Additional Family Medical History / Comment(s): smoker Father Family Medical History: No Reported History Medications and Allergies Home Medications Medication Instructions Recorded Confirmed Type metFORMIN HCL 1,000 mg PO BID 08/31/16 04/21/18 History Atorvastatin [Lipitor] 80 mg PO DAILY 07/23/17 04/21/18 History Glimepiride [Amaryl] 4 mg PO BID 07/23/17 04/21/18 History Fluticasone Nasal [place] [Flonase 1 spray EA NOSTRIL DAILY 03/24/18 04/21/18 History Nasal [place]] Lisinopril 40 mg PO DAILY 03/24/18 04/21/18 History Ergocalciferol (Vitamin D2) 50,000 unit PO MO 04/21/18 04/21/18 History [Vitamin D2] Allergies Allergy/AdvReac Type Severity Reaction Status Date / Time No Known Allergies Allergy Verified 04/21/18 20:22 Physical Exam Vitals: Vital Signs Temp Pulse Resp BP BP Pulse Ox 04/22/18 16:00 98.2 F 81 18 133/77 96 04/22/18 07:26 98.0 F 79 18 158/94 96 04/22/18 03:40 16 04/22/18 00:00 16 04/21/18 23:28 98.4 F 85 16 151/91 97 04/21/18 20:00 16 04/21/18 19:25 98.2 F 73 16 162/95 97 Intake and Output 04/22/18 04/22/18 04/22/18 06:59 14:59 22:59 Intake Total 318 620 Balance 318 620 Intake: Oral 318 620 Other: # Voids 1 1 - Constitutional General appearance: no acute distress - EENT Eyes: EOMI, PERRLA ENT: hearing grossly normal, normal oropharynx - Neck Neck: no lymphadenopathy Thyroid: bilateral: normal size - Respiratory Respiratory: bilateral: CTA - Cardiovascular Rhythm: regular Heart sounds: normal: S1, S2 - Gastrointestinal General gastrointestinal: normal bowel sounds, soft - Integumentary Integumentary: normal - Neurologic Neurologic: CNII-XII intact - Musculoskeletal Musculoskeletal: strength equal bilaterally - Psychiatric Psychiatric: A&O x's 3, appropriate affect Results CBC & Chem 7: 04/21/18 15:15 04/21/18 15:15 Labs: Abnormal Lab Results - Last 24 Hours (Table) 04/21/18 04/22/18 04/22/18 Range/Units 20:17 06:54 12:16 POC Glucose (mg/dL) 145 H 110 H 113 H (75-99) mg/dL Comments: Colonoscopy procedure note and pathology report reviewed CT scan - abdomen: report reviewed, image reviewed CT scan - chest: report reviewed CT scan - pelvis: report reviewed, image reviewed Assessment and Plan (1) Pancreatic abnormality Narrative/Plan: The patient is presenting with back pain, that has been proven to be due to benign muscular skeletal causes. The finding of the pancreas was on CT of the abdomen and pelvis done to workup his weight loss. The patient's images were personally reviewed. His physical exam is unrevealing. The findings on imaging a fairly subtle and not really definitive of an obvious mass. CA 19-9 has been ordered. The patient will need better imaging of the pancreas, which can be accomplished with an MRCP. This will also evaluate the liver, which on my evaluation did not show any definite evidence of mass lesions. If MRCP and labs are both negative, then further workup of the pancreatic finding is not required. Current Visit: Yes Status: Acute Code(s): Q45.3 - [facility] CONGENITAL MALFORMATIONS OF PANCREAS AND PANCREATIC DUCT SNOMED Code(s): 3034585 (2) Abnormal weight loss Narrative/Plan: The finding in the pancreas is more concerning due to the complains of his weight loss. However it is possible that the weight loss could be due to the the change in appetite and oral intake, as well as GI symptoms, from his pain medications as well as the pain itself. He is up-to-date with his colonoscopy which was negative as noted. His chest imaging in 05/30 was negative. Chest x-ray will be ordered. If the above workup is negative, then malignancy would be less likely. In that case I would recommend monitoring the patient's weight with ongoing efforts at pain control with the most tolerable regimen. Current Visit: Yes Status: Acute Code(s): R63.4 - ABNORMAL WEIGHT LOSS SNOMED Code(s): 475733572 (3) Acute low back pain Narrative/Plan: The patient has had multiple imaging of his lumbosacral area, confirming degenerative disease and disc herniation with no evidence of malignancy. Defer to the admitting service for management of the above Current Visit: No Status: Acute Code(s): M54.5 - LOW BACK PAIN SNOMED Code (s): 144739355
[2018-04-22 20:34] LABS: Glucose,Whole Blood 96 mg/dL (75-99)
[2018-04-23] MEDS ORDERED: KETOROLAC 30 MG/ML 1 ML VIAL ONE (02:10)
[2018-04-23] MEDS: SODIUM CHLORIDE 0.9% 1,000 ML IV SCH ×3 (05:17→19:46)
[2018-04-23 06:46] LABS: Glucose,Whole Blood 175 mg/dL (75-99)
[2018-04-23] MEDS: GLIMEPIRIDE 4 MG TAB PO SCH ×2 (10:10→18:22)
[2018-04-23] MEDS: ATORVASTATIN 80 MG TAB PO SCH (10:11)
[2018-04-23] MEDS: LISINOPRIL 20 MG TAB PO SCH (10:11)
[2018-04-23] MEDS: PANTOPRAZOLE 40 MG TABLET PO SCH (10:11)
[2018-04-23] MEDS: FLUTICASONE 50MCG/SPRAY NASAL 16GM EA NOSTRIL SCH (10:11)
[2018-04-23] MEDS: KETOROLAC 30 MG/ML 1 ML VIAL IVP PRN ×3 (10:18→21:47)
--- NOTE | 2018-04-23 11:06 | MR ---
EXAMINATION TYPE: MR liver wo/w con and mrcp DATE OF EXAM: 04/23/2018 COMPARISON: CT abdomen pelvis dated 04/21/2018 HISTORY: Possible pancreatic mass on CT, weight loss CONTRAST: Standard multiplanar, multisequence MRI departmental protocol utilizing 9 mL intravenous Gadavist andrea olinium contrast. FINDINGS: There is no evidence of pancreatic ductal dilatation as the main pancreatic duct measures 2 mm within the pancreatic body. The pancreatic head is somewhat bulbous in contour with apposition of the desce nding duodenum and pancreatic head, however no abnormal pancreatic enhancement is identified. No wanda pancreatic fat stranding is seen. No enlarged adenopathy is seen in the peripancreatic region. The common bile duct is also nondilated measuring 6 mm. No intrahepatic biliary ductal dilatation is seen. No cholelithiasis is identified. There is no significant signal dropout and out of phase imagin g to indicate underlying hepatic steatosis. There is slight motion artifact throughout the liver, how ever the liver enhances homogeneously without focal lesion. The spleen, adrenal glands, and kidneys are unremarkable in enhancement and morphology. The known rig ht renal calculus is better appreciated on CT. Abdominal aorta is of normal course. Bone marrow is un remarkable. Lung bases are also unremarkable. IMPRESSION: 1. Prominence of the pancreatic head abutting the descending duodenum with no pancreatic ductal dilat ation or abnormal enhancement to correspond to discrete evidence of pancreatic mass. Ensure serum noe creatic tumor markers are within normal limits. 2. No adenopathy within the abdomen.
[2018-04-23 12:34] LABS: Glucose,Whole Blood 243 mg/dL (75-99)
[2018-04-23] MEDS: metFORMIN 500 MG TAB PO SCH ×2 (13:10→18:22)
--- NOTE | 2018-04-23 13:26 | PN ---
PROGRESS NOTE CHIEF COMPLAINT: Back pain. HISTORY OF PRESENT ILLNESS: This gentleman is down for an MRI. His CA 19-9 was normal. He will continue his workup and MRI report, which is pending, will help guide further evaluation and studies. YONATHAN / QUINN: [id number] /
[2018-04-23] MEDS: MULTIVITAMINS, THERA 1 EACH TAB PO SCH (14:34)
[2018-04-23] MEDS: MORPHINE SULFATE 2 MG/ML SYRINGE IV PRN (14:34)
[2018-04-23 17:23] LABS: Glucose,Whole Blood 104 mg/dL (75-99)
--- NOTE | 2018-04-23 19:54 | P.PN ---
Subjective Progress Note Date: 04/23/18 Principal diagnosis: Uncontrolled pain, Concern for etiology of the pancreas The patient is a 58-year-old white male with overall well controlled medical problems. The patient has had degenerative arthritis and some chronic back pain off and on which was fairly tolerable. However on 03/24/18, the patient developed marked increase in lower back pain, leading him to come to the emergency room. He had recurrent emergency room visit since with CT of the lumbar spine showing evidence of degenerative disease including disc herniation at the L4 level. The patient was started on pain medications at that time and states that since then his appetite has been reduced. He also had 2-3 days of significant nausea and vomiting following which he reported very low oral intake for another 2-3 days. Since the onset of low back pain, he had lost about 30 pounds. He came into the emergency room with similar complaints. This time he had a CT of the abdomen and pelvis, which showed increased density in the head of the pancreas, with mass not ruled out, as well as increased hypoattenuation throughout the liver, suggestive of steatosis, with diffuse metastasis not ruled out. The patient was admitted, and consult placed for further evaluation and recommendations The patient denied any prior history of malignancy. He states that he used to drink a fair amount of alcohol several years ago but denies being an alcoholic. He quit smoking about 11-12 years ago. He denied any family history of malignancy or history of pancreatitis. He is up-to-date with his colonoscopy, which was performed in 07/30 with a small adenomatous polyp removed. He also had chest imaging with a chest CT in for concerns for a chest wall mass, which was negative. 04/23/18 - Patient seen and evaluated in Follow-up, he underwent MRI of the pancreas and these results are pending. His pain appears to be neuropathic in nature with shooting pain down right leg and numbness and tingling with weakness. Ca19-9 wnl Objective - Vital Signs Vital signs: Vital Signs Temp 97.3 F L 04/23/18 15:31 Pulse 76 04/23/18 15:31 Resp 16 04/23/18 15:31 BP 169/95 04/23/18 15:54 Pulse Ox 96 04/23/18 15:31 Intake & Output 04/23/18 04/23/18 04/24/18 06:59 18:59 06:59 Intake Total 694 Balance 694 Intake: Oral 694 Other: # Voids 1 - Constitutional General appearance: Present: average body habitus, cooperative, no acute distress - EENT Eyes: Present: EOMI, PERRLA, normal appearance ENT: Present: NA/AT, normal oropharynx - Neck Details: Supple, trache midline Neck: Present: normal ROM - Respiratory Respiratory: bilateral: CTA (No increased respiratory effort) - Cardiovascular Rhythm: regular Heart sounds: normal: S1, S2 - Gastrointestinal General gastrointestinal: Present: normal bowel sounds, soft, tenderness - Integumentary Integumentary: Present: normal - Neurologic Neurologic Comment(s): Right lower extremity mild weakness and neuropathic pain complaints, otherwise no neurological defects noted Neurologic: Present: CNII-XII intact - Musculoskeletal Musculoskeletal: Present: gait normal, generalized weakness, right sided weakness - Psychiatric Psychiatric: Present: A&O x's 3, appropriate affect, intact judgment & insight - Labs CBC & Chem 7: 04/21/18 15:15 04/21/18 15:15 Labs: Abnormal Lab Results - Last 24 Hours (Table) 04/23/18 04/23/18 04/23/18 Range/Units 06:39 12:03 17:14 POC Glucose (mg/dL) 175 H 243 H 104 H (75-99) mg/dL Assessment and Plan Plan: Comments: Colonoscopy procedure note and pathology report reviewed CT scan - abdomen: report reviewed, image reviewed CT scan - chest: report reviewed CT scan - pelvis: report reviewed, image reviewed Assessment and Plan (1) Pancreatic abnormality Narrative/Plan: The patient is presenting with back pain, that has been proven to be due to benign muscular skeletal causes. The finding of the pancreas was on CT of the abdomen and pelvis done to workup his weight loss. The patient's images were personally reviewed. His physical exam is unrevealing. The findings on imaging a fairly subtle and not really definitive of an obvious mass. CA 19-9 has been ordered. and is normal MRI is pending Current Visit: Yes Status: Acute Code(s): Q45.3 - [facility] CONGENITAL MALFORMATIONS OF PANCREAS AND PANCREATIC DUCT SNOMED Code(s): 3227220 (2) Abnormal weight loss Narrative/Plan: The finding in the pancreas is more concerning due to the complains of his weight loss. However it is possible that the weight loss could be due to the the change in appetite and oral intake, as well as GI symptoms, from his pain medications as well as the pain itself. He is up-to-date with his colonoscopy which was negative as noted. His chest imaging in 05/30 was negative. Chest x-ray reviewed If the above workup is negative, then malignancy would be less likely. In that case I would recommend monitoring the patient's weight with ongoing efforts at pain control with the most tolerable regimen. Current Visit: Yes Status: Acute Code(s): R63.4 - ABNORMAL WEIGHT LOSS SNOMED Code(s): 700993021 (3) Acute low back pain Narrative/Plan: The patient has had multiple imaging of his lumbosacral area, confirming degenerative disease and disc herniation with no evidence of malignancy. Would consider MRI imaging in a patient with unilateral neuropathic pain not relieved with conservative measures as outpatient. Defer to the admitting service for management of the above Current Visit: No Status: Acute Code(s): M54.5 - LOW BACK PAIN SNOMED Code (s): 499081785
[2018-04-23 20:33] LABS: Glucose,Whole Blood 150 mg/dL (75-99)
[2018-04-23] MEDS: DOCUSATE 100 MG CAP PO PRN (20:55)
[2018-04-24] MEDS: MORPHINE SULFATE 2 MG/ML SYRINGE IV PRN ×3 (03:27→13:49)
[2018-04-24] MEDS: SODIUM CHLORIDE 0.9% 1,000 ML IV SCH (05:02)
[2018-04-24] MEDS: KETOROLAC 30 MG/ML 1 ML VIAL IVP PRN ×2 (05:03→14:59)
[2018-04-24 06:39] LABS: Glucose,Whole Blood 90 mg/dL (75-99)
[2018-04-24] MEDS: FLUTICASONE 50MCG/SPRAY NASAL 16GM EA NOSTRIL SCH (09:25)
[2018-04-24] MEDS: MULTIVITAMINS, THERA 1 EACH TAB PO SCH (09:25)
[2018-04-24] MEDS: GLIMEPIRIDE 4 MG TAB PO SCH ×2 (09:25→17:43)
[2018-04-24] MEDS: PANTOPRAZOLE 40 MG TABLET PO SCH (09:25)
[2018-04-24] MEDS: LISINOPRIL 20 MG TAB PO SCH (09:25)
[2018-04-24] MEDS: ATORVASTATIN 80 MG TAB PO SCH (09:25)
[2018-04-24] MEDS: metFORMIN 500 MG TAB PO SCH ×2 (09:40→17:37)
[2018-04-24] MEDS: DOCUSATE 100 MG CAP PO PRN (10:02)
[2018-04-24 12:25] LABS: Glucose,Whole Blood 93 mg/dL (75-99)
[2018-04-24] MEDS ORDERED: HYDROcodone/APAP 5-325MG 1 EACH TAB PO PRN (16:19)
--- NOTE | 2018-04-24 17:02 | P.CNOR ---
History of Present Illness - [facility] Consult date: 04/24/18 Consult reason: low back pain History of present illness: The patient is a pleasant 58-year-old male who presented to the emergency department with low back pain. The patient states that his back pain started on [birth year] which [birth year], after he bent over and stood back up and felt excruciating pain in his right lower back. He states the pain has continued and he has had x-rays and a CT of his low back previously. The patient was also found to have a pancreatic mass on the abdominal CT in the ER and he is currently being followed by oncology for further follow-up. We were consulted for the intractable low back pain. The patient states that he does have a history of off and on back pain in the past. He denies bowel or bladder issues. He states that he does have weakness in the right leg and numbness to the anterior lower leg since the pain started on March 24. The patient states that he feels like his "bone in his back is sticking out". " Review of Systems Constitutional: Denies chills, Denies fatigue, Denies fever Cardiovascular: Denies chest pain, Denies shortness of breath Respiratory: Denies cough Gastrointestinal: Reports constipation, Denies diarrhea, Denies nausea, Denies vomiting Musculoskeletal: Reports low back pain Neurological: Reports weakness Past Medical History Past Medical History: Diabetes Mellitus, Hyperlipidemia, Hypertension Additional Past Medical History / Comment(s): back pain History of Any Multi-Drug Resistant Organisms: None Reported Past Surgical History: No Surgical Hx Reported Additional Past Surgical History / Comment(s): top teeth pulled, broke his nose with repair. In the early s , had an issue with his colon and they straightened it out. Past Anesthesia/Blood Transfusion Reactions: No Reported Reaction Smoking Status: Former smoker - Past Family History Mother Family Medical History: No Reported History Additional Family Medical History / Comment(s): smoker Father Family Medical History: No Reported History Medications and Allergies Home Medications Medication Instructions Recorded Confirmed Type metFORMIN HCL 1,000 mg PO BID 08/31/16 04/21/18 History Atorvastatin [Lipitor] 80 mg PO DAILY 07/23/17 04/21/18 History Glimepiride [Amaryl] 4 mg PO BID 07/23/17 04/21/18 History Fluticasone Nasal [place] [Flonase 1 spray EA NOSTRIL DAILY 03/24/18 04/21/18 History Nasal [place]] Lisinopril 40 mg PO DAILY 03/24/18 04/21/18 History Ergocalciferol (Vitamin D2) 50,000 unit PO MO 04/21/18 04/21/18 History [Vitamin D2] Allergies Allergy/AdvReac Type Severity Reaction Status Date / Time No Known Allergies Allergy Verified 04/21/18 20:22 Physical Examination The patient is a 58-year-old male who is in no acute distress. He is alert and oriented 3. Chest expansion is equal and breathing is unlabored. His abdomen is soft and nontender. There is pain to palpation to the right SI joint with moderate paraspinal spasm. There is no direct pain to palpation to the lumbar spine. There is no pain to palpation to the left SI joint or paraspinal muscles. Dorsiflexion, plantarflexion, extensor hallucis longus is 1 -2+/5 on the right and 5/5 on the left. There is numbness to the anterior lower leg on the right. Straight leg test was positive on the right. Calves are soft and nontender. Circulatory status is intact with brisk cap refill. Results - Labs Labs: Abnormal Lab Results - Last 24 Hours (Table) 04/23/18 04/23/18 Range/Units 17:14 20:27 POC Glucose (mg/dL) 104 H 150 H (75-99) mg/dL H & H 04/21/18 Range/Units 15:15 Hgb 15.5 (13.0-17.5) gm/dL Hct 43.7 (39.0-53.0) % Result Diagrams: 04/21/18 15:15 04/21/18 15:15 - Diagnostic results Lumbar AP/lateral x-ray: image reviewed CT Scan - lumbar: image reviewed Assessment and Plan (1) Low back pain Current Visit: Yes Status: Acute Code(s): M54.5 - LOW BACK PAIN SNOMED Code(s): 399073833 (2) Degenerative disc disease, lumbar Current Visit: Yes Status: Acute Code(s): M51.36 - OTHER INTERVERTEBRAL DISC DEGENERATION, LUMBAR REGION SNOMED Code(s): 47735405 (3) Lumbar radiculopathy, right Current Visit: Yes Status: Acute Code(s): M54.16 - RADICULOPATHY, LUMBAR REGION SNOMED Code(s): 674226474 Plan: The clinical, x-ray, and CT findings were discussed with the patient. The case was also discussed with Dr. Ramirez. We are recommending IV Solu-Medrol, Valium, and Ultram at this time. If he fails to improve, an MRI and/or interventional pain management may be consulted for possible injections may be needed. We will continue to follow the patient closely. If he is discharged home today, he may follow up with Dr. Ramirez on an outpatient basis, otherwise we will recheck the patient's progress tomorrow and make further recommendations as needed.
[2018-04-24] MEDS ORDERED: traMADol 50 MG TAB PO PRN ×2 (17:03)
[2018-04-24 17:13] LABS: Glucose,Whole Blood 148 mg/dL (75-99)
[2018-04-24] MEDS: DIAZEPAM 5 MG TAB PO PRN (17:43)
[2018-04-24] MEDS: methylPREDNISolone SOD SUCCI 125 MG/2 ML VIAL IV SCH (17:43)
[2018-04-24 22:01] LABS: Glucose,Whole Blood 255 mg/dL (75-99)
[2018-04-25] MEDS: methylPREDNISolone SOD SUCCI 125 MG/2 ML VIAL IV SCH ×2 (00:01→09:41)
[2018-04-25] MEDS: DIAZEPAM 5 MG TAB PO PRN ×2 (00:01→09:49)
[2018-04-25 05:57] VITALS: RESP 18
[2018-04-25 07:01] LABS: Glucose,Whole Blood 260 mg/dL (75-99)
[2018-04-25 08:42] VITALS: TEMP 97.8
--- NOTE | 2018-04-25 09:10 | P.PN ---
Progress Note - Text Progress Note Date: 04/25/18 Patient is a very pleasant 58-year-old male who is seen and examined bedside for follow-up evaluation for right-sided low back pain and right lower extremity radiculopathy with weakness. He was seen and examined yesterday. At that time he was started on Solu-Medrol IV. Since that time he's had significant improvement of his symptoms. He is no longer experiencing significant right lower extremity radiculopathy and weakness which was present yesterday. States he was experiencing pain over the right anterior thigh and over the right anterior lower extremity. He had weakness with performing dorsiflexion, plantarflexion, extensor hallucis longus on the right. The symptoms have significantly improved. He does continue to have some right lower back pain at the SI joint and some pain towards the right groin. She denies any specific right hip pain. He denies any left lower extremity radiculopathy or weakness. He continues to be seen by medicine. He has been undergoing further workup for a pancreatic mass. He states he feels 100% better as compared to yesterday. He feels he is ready for discharge home. He is known to have diabetes that is adequately controlled at home. He states he is producing prescribed a Medrol Dosepak which elevated his glucose levels to over 300. His glucose levels have been elevated to 260 since he administration of Solu-Medrol. Physical exam: Patient is awake, alert, and oriented 3 Vital signs stable Good chest excursion with deep inspiration and expiration Abdomen soft nontender Examination of lumbar spine reveals skin is intact with no abrasions, lacerations, or bruises; no erythema, purulence or signs of infection Pain with palpation over the right lower lumbar spine and at sacroiliac joint Dorsiflexion, plantarflexion, and extensor hallucis longus positive sustained bilaterally; no evidence of significant or specific lower extremity weakness Lower extremity strength 5/5 bilaterally Patellar reflex 1+ bilaterally and Achilles reflexes 0+ bilaterally No lower extremity hyperreflexia bilaterally Straight leg test negative bilateral lower extremities No signs or symptoms of DVT; no calf pain No pain with internal and external rotation of the hips bilaterally Neurovascularly intact Assessment: Right-sided low back pain, right sacroiliac joint pain Right lower extremity radiculopathy Pancreatic mass Diabetes mellitus Plan: 1. Patient had significant improvement of his symptoms as compared to yesterday after receiving Solu-Medrol IV. He states his pain has significantly improved on the steroid and feels the narcotic medications did not provide the same benefit as the steroid. He is able to ambulate better and has better improvement of strength in the right lower extremity. He is no longer experiencing significant pain over the right anterior thigh and right anterior lower extremity. He does admit to some continued right-sided low back pain with some pain radiating towards the right groin. He denies any difficulty with the right hip. At this time he feels due to his improvement of his symptoms, he would be ready for discharge home. I agree this is appropriate plan of care. From an orthopedic spine standpoint, patient is clear for discharge. We will plan to have him follow-up in the outpatient setting in approximately 2 weeks for further evaluation. Depending on how he is progressing with conservative treatment at that time, we will discuss further treatment options. We will plan to discontinue Solu-Medrol IV. We will not plan for steroid taper at discharge due to his significant elevation in glucose levels. 2. Medicine will continue to follow patient closely 3. I'll await discharge, patient may follow-up with Agustín Aguillon PA-C or Dr. Joseph Ramirez at [facility] in approximately 2 weeks for further evaluation 4. Patient has been discussed with Dr. Joseph Ramirez and he agrees with this plan
[2018-04-25] MEDS: metFORMIN 500 MG TAB PO SCH (09:42)
[2018-04-25] MEDS: FLUTICASONE 50MCG/SPRAY NASAL 16GM EA NOSTRIL SCH (09:45)
[2018-04-25] MEDS: ATORVASTATIN 80 MG TAB PO SCH (09:46)
[2018-04-25] MEDS: GLIMEPIRIDE 4 MG TAB PO SCH (09:46)
[2018-04-25] MEDS: MULTIVITAMINS, THERA 1 EACH TAB PO SCH (09:46)
[2018-04-25] MEDS: PANTOPRAZOLE 40 MG TABLET PO SCH (09:46)
[2018-04-25] MEDS: LISINOPRIL 20 MG TAB PO SCH (09:46)
--- NOTE | 2018-04-25 11:27 | P.PN ---
Subjective Progress Note Date: 04/24/18 Principal diagnosis: Lower back pain Patient is a 58-year-old male with a known history of hypertension, diabetes, hyperlipidemia came to ER with complaints of lower back pain. The patient has had degenerative arthritis and some chronic back pain off and on which was fairly tolerable. However on 03/24/18, the patient developed marked increase in lower back pain, leading him to come to the emergency room. He had recurrent emergency room visit since with CT of the lumbar spine showing evidence of degenerative disease including disc herniation at the L4 level. The patient was started on pain medications at that time and states that since then his appetite has been reduced. He also had 2-3 days of significant nausea and vomiting following which he reported very low oral intake for another 2-3 days. Since the onset of low back pain, he had lost about [address] of the abdomen and pelvis, which showed increased density in the head of the pancreas, with mass not ruled out, as well as increased hypoattenuation throughout the liver, suggestive of steatosis, with diffuse metastasis not ruled out. The patient was admitted, and consult placed for further evaluation and recommendations. The patient denied any prior history of malignancy. He states that he used to drink a fair amount of alcohol several years ago but denies being an alcoholic. He quit smoking about 11-12 years ago. He denied any family history of malignancy or history of pancreatitis. He is up-to-date with his colonoscopy, which was performed in 07/30 with a small adenomatous polyp removed. He also had chest imaging with a chest CT in for concerns for a chest wall mass, which was negative. MRI of the pancreas showed 04/24/18 Pt. was seen by Ortho and was started on Steroids, valium and c/w tremadol. Pian is improving., MRI of the liver showed showed prominence of the pancreatic head abutting the descending duodenum with no pancreatic duct dilatation or abnormal and has been to correspond 2 discrete evidence of pancreatic mass. CA 19-9 is not elevated Patient denied any complaints of chest pain or shortness of. No nausea vomiting or abdominal pain. Anticipate discharge in the 24 hours. All other review of systems negative except the above. Medications reviewed Objective - Vital Signs Vital signs: Vital Signs Temp 97.8 F 04/25/18 00:11 Pulse 79 04/25/18 00:11 Resp 16 04/25/18 00:11 BP 122/73 04/25/18 00:11 Pulse Ox 96 04/25/18 00:11 Intake & Output 04/24/18 04/24/18 04/25/18 06:59 18:59 06:59 Intake Total 358 Balance 358 Weight 93.2 kg Intake: Oral 358 Other: Voiding Method Toilet Toilet # Voids 1 3 1 - Exam PHYSICAL EXAMINATION: Patient is lying in the bed comfortably, no acute distress, awake alert and oriented.. HEENT: Normocephalic. Neck is supple. Pupils reactive. Nostrils clear. Oral cavity is moist. Ears reveal no drainage. Neck reveals no JVD, carotid bruits, or thyromegaly. CHEST EXAMINATION: Trachea is central. Symmetrical expansion. Lung clay clear to auscultation and percussion. CARDIAC: Normal S1, S2 with no gallops. No murmurs ABDOMEN: Soft. Bowel sounds normal. No organomegaly. No abdominal bruits. Extremities: reveal no edema. No clubbing or cyanosis Neurologically awake, alert, oriented x3 with well-coordinated movements. No focal deficits noted Skin: No rash or skin lesions. Psychiatric: Coperative. Nonsuicidal Musculoskeletal: No joint swelling or deformity. Normal range of motion. - Labs CBC & Chem 7: 04/21/18 15:15 04/21/18 15:15 Labs: Abnormal Lab Results - Last 24 Hours (Table) 04/24/18 04/24/18 Range/Units 17:06 21:58 POC Glucose (mg/dL) 148 H 255 H (75-99) mg/dL Assessment and Plan Assessment: Acute lower back pain. Due to degenerative disc disease and disc herniation with no evidence of . Possible pancreatic mass. MRI is negative for any mass. Left shoulder pain Hypertension. Controlled Abnormal weight loss. Could be due to change in appetite. Chest imaging 05/30 negative. Up-to-date with colonoscopy. MRI abdominal negative for any mass. Hepatic steatosis Lumbosacral degenerative disc disease with no evidence of malignancy. Plan: Patient will be continued on steroids and Valium and tramadol. Patient is improving. Continue with current management and anticipate discharge next 24 hours. Although and oncology is following. Time with Patient: Greater than 30
[2018-04-25 12:20] VITALS: BP 130/86; PULSE 110
--- NOTE | 2018-04-25 23:34 | P.DS ---
Providers Date of admission: 04/21/18 17:34 Expected date of discharge: 04/25/18 Attending physician: Maciel Morgan Consults: 04/22/18 11:14 Consult Physician Routine Consulting Provider: Pierre Valdez Consult Reason/Comments: panc. mass, wt. loss Do you want consulting provider notified?: Yes 04/23/18 19:42 Consult Physician Routine Consulting Provider: Carlos Ramirez Consult Reason/Comments: BACK PAIN, SCIATICA Do you want consulting provider notified?: Yes, Notify in am Primary care physician: Maciel Morgan Hospital Course: Discharge diagnosis Acute lower back pain. Due to degenerative disc disease and disc herniation with no evidence of malignancy. Possible pancreatic mass. MRI is negative for any mass. Left shoulder pain Hypertension. Controlled Abnormal weight loss. Could be due to change in appetite. Chest imaging 05/30 negative. Up-to-date with colonoscopy. MRI abdominal negative for any mass. Hepatic steatosis Lumbosacral degenerative disc disease with no evidence of malignancy. Hospital course Patient is a 58-year-old male with a known history of hypertension, diabetes, hyperlipidemia came to ER with complaints of lower back pain. The patient has had degenerative arthritis and some chronic back pain off and on which was fairly tolerable. However on 03/24/18, the patient developed marked increase in lower back pain, leading him to come to the emergency room. He had recurrent emergency room visit since with CT of the lumbar spine showing evidence of degenerative disease including disc herniation at the L4 level. The patient was started on pain medications at that time and states that since then his appetite has been reduced. He also had 2-3 days of significant nausea and vomiting following which he reported very low oral intake for another 2-3 days. Since the onset of low back pain, he had lost about [address] of the abdomen and pelvis, which showed increased density in the head of the pancreas, with mass not ruled out, as well as increased hypoattenuation throughout the liver, suggestive of steatosis, with diffuse metastasis not ruled out. The patient was admitted, and consult placed for further evaluation and recommendations. The patient denied any prior history of malignancy. He states that he used to drink a fair amount of alcohol several years ago but denies being an alcoholic. He quit smoking about 11-12 years ago. He denied any family history of malignancy or history of pancreatitis. He is up-to-date with his colonoscopy, which was performed in 07/30 with a small adenomatous polyp removed. He also had chest imaging with a chest CT in for concerns for a chest wall mass, which was negative. MRI of the pancreas showed 04/24/18 Pt. was seen by Ortho and was started on Steroids, valium and c/w tremadol. Pian is improving., MRI of the liver showed showed prominence of the pancreatic head abutting the descending duodenum with no pancreatic duct dilatation or abnormal and has been to correspond 2 discrete evidence of pancreatic mass. CA 19-9 is not elevated Patient denied any complaints of chest pain or shortness of. No nausea vomiting or abdominal pain. Anticipate discharge in the 24 hours. All other review of systems negative except the above. 04/25/2018 Back pain is almost resolved. Steroids can be discontinued. Patient will be continued on Valium. No complaints of chest pain or shortness of breath. Patient is stable to be discharged home and follow with orthopedic surgery clinic as an outpatient. Discharge physical examination was done and vitals reviewed. Vital Signs - 24 hr 04/25/18 04/25/18 04/25/18 00:00 00:11 04:00 Temperature 97.8 F 98.4 F Pulse Rate [ 79 61 Pulse Oximetery ] Respiratory 16 16 18 Rate Blood Pressure 122/73 105/63 [Right Arm] O2 Sat by Pulse 96 97 Oximetry 04/25/18 04/25/18 08:00 12:00 Temperature 97.8 F Pulse Rate [ 102 H 110 H Pulse Oximetery ] Respiratory 18 18 Rate Blood Pressure 163/85 130/86 [Right Arm] O2 Sat by Pulse 96 97 Oximetry Patient Condition at Discharge: Stable Plan - Discharge Summary New Discharge Prescriptions: New RX: Diazepam [Valium] 5 mg PO TID PRN 3 Days #9 tab PRN Reason: Muscle Spasm Continue RX: metFORMIN HCL 1,000 mg PO BID RX: Glimepiride [Amaryl] 4 mg PO BID RX: Atorvastatin [Lipitor] 80 mg PO DAILY RX: Lisinopril 40 mg PO DAILY RX: Fluticasone Nasal [place] [Flonase Nasal [place]] 1 spray EA NOSTRIL DAILY RX: Ergocalciferol (Vitamin D2) [Vitamin D2] 50,000 unit PO MO Discharge Medication List RX: metFORMIN HCL 1,000 mg PO BID 08/31/16 [History] RX: Atorvastatin [Lipitor] 80 mg PO DAILY 07/23/17 [History] RX: Glimepiride [Amaryl] 4 mg PO BID 07/23/17 [History] RX: Fluticasone Nasal [place] [Flonase Nasal [place]] 1 spray EA NOSTRIL DAILY 03/24 [History] RX: Lisinopril 40 mg PO DAILY 03/24/18 [History] RX: Ergocalciferol (Vitamin D2) [Vitamin D2] 50,000 unit PO MO 04/21/18 [History ] RX: Diazepam [Valium] 5 mg PO TID PRN 3 Days #9 tab 04/25/18 [Rx] Follow up Appointment(s)/Referral(s): Maciel Morgan MD [Primary Care Provider] - 1-2 days Carlos Ramirez DO [Doctor of Osteopathic Medicine] - 05/09/18 3:00 pm (Patient may follow-up with Agustín Aguillon PA-C or Dr. Joseph Ramirez at [facility] in 2 weeks following discharge. ) Discharge Disposition: HOME SELF-CARE
== END 2018-04-25 12:04 | disposition home or self-care (01) ==
LOC: EC 12:46 → 3OBS 17:34
PROVIDERS: ADMIT Family Medicine; ATTEND Family Medicine
DX: M54.5 Low back pain (principal); M25.512 Pain in left shoulder; I10 Essential (primary) hypertension; Z68.28 Body mass index [BMI] 28.0-28.9, adult; K76.0 Fatty (change of) liver, not elsewhere classified; M51.37 Other intervertebral disc degeneration, lumbosacral region; E78.5 Hyperlipidemia, unspecified; E11.65 Type 2 diabetes mellitus with hyperglycemia; M19.90 Unspecified osteoarthritis, unspecified site; G89.29 Other chronic pain; M51.26 Other intervertebral disc displacement, lumbar region; R11.2 Nausea with vomiting, unspecified; Z87.891 Personal history of nicotine dependence; Z86.010 Personal history of colon polyps; Z79.899 Other long term (current) drug therapy; Z79.82 Long term (current) use of aspirin; Z79.84 Long term (current) use of oral hypoglycemic drugs; Z79.51 Long term (current) use of inhaled steroids; M51.16 Intervertebral disc disorders with radiculopathy, lumbar region; R10.9 Unspecified abdominal pain; M51.17 Intervertebral disc disorders with radiculopathy, lumbosacral region; M54.31 Sciatica, right side; T38.0X5A Adverse effect of glucocorticoids and synthetic analogues, initial encounter; M53.3 Sacrococcygeal disorders, not elsewhere classified
CPT/HCPCS: 99285; 96374; 96375 ×6; 96361 ×7; 96376 ×5; 36415; 80053; 83690; 85025; 86140; 81003; 86301; 80306; 74177; 74183; G0378 ×5; J2360; J2930 ×2; J2405; J1885 ×4; J2270 ×3; C9113 ×2; A9581; Q9967

== ENCOUNTER → 2018-05-27 | Outpatient (CLI) | payer OTHER ==
--- NOTE | 2018-05-27 23:24 | MR ---
EXAMINATION TYPE: MR lumbar spine wo con DATE OF EXAM: 05/27/2018 COMPARISON: None HISTORY: Back pain for 4 months TECHNIQUE: Multiplanar, multisequence images of the lumbar spine were acquired. Cervical vertebra have normal alignment. There is some narrowing at the L4-5 L3-4 disc spaces. There is mild narrowing at the other lumbar disc spaces. There is posterior disc herniation at L3-4 L4-5 wi th some encroachment on the spinal canal. There is no paraspinal mass. There is a mild relative spina l stenosis at L3-4 L4-5 due to posterior disc herniation. There is a lateral disc herniation at L3-4 on the right side encroaching on the neural foramen. The other neural foramina are fairly well-mainta ined. There is no compression fracture. Sacroiliac joints appear intact. There is small posterior dis c bulging at L1-2. IMPRESSION: Spondylotic changes as above. Posterior central and right-sided L3-4 lumbar disc herniation with encr oachment on the neural foramen. Small posterior L4-5 and L1-2 lumbar disc herniations.
== END | disposition home or self-care (01) ==
LOC: RADMRIMAIN 20:12
PROVIDERS: ATTEND Orthopaedic Surgery Orthopaedic Surgery of the Spine
DX: M51.16 Intervertebral disc disorders with radiculopathy, lumbar region (principal); M47.26 Other spondylosis with radiculopathy, lumbar region
CPT/HCPCS: 72148

== ENCOUNTER → 2018-06-26 | Outpatient (CLI) | payer OTHER ==
[2018-06-26 14:28] LABS: Basophils # (A) 0.1 k/uL (0-0.2); Basophils % (A) 1 %; Eosinophils # (A) 0.1 k/uL (0-0.7); Eosinophils % (A) 2 %; HCT 40.6 % (39.0-53.0); HGB 13.7 gm/dL (13.0-17.5); Lymphocytes # (A) 1.8 k/uL (1.0-4.8); Lymphocytes % (A) 25 %; MCH 30.2 pg (25.0-35.0); MCHC 33.7 g/dL (31.0-37.0); Mean Platelet Volume 6.2; Monocytes # (A) 0.4 k/uL (0-1.0); Monocytes % (A) 6 %; Neutrophils # (A) 4.8 k/uL (1.3-7.7); Neutrophils % (A) 65 %; Platelet Count 357 k/uL (150-450); RBC 4.52 m/uL (4.30-5.90); RDW 13.8 % (11.5-15.5); WBC 7.3 k/uL (3.8-10.6)
[2018-06-26 14:32] LABS: Appearance,Urine Clear (Clear); Bilirubin,Urine Negative (Negative); Blood,Urine Trace (Negative); Color,Urine Yellow; Glucose,Urine (UA) 3+ (Negative); Ketones,Urine Negative (Negative); Leukocyte Esterase,Urine Negative (Negative); Mucus,Urine Rare /hpf; Nitrite,Urine Negative (Negative); PH, Urine 5.5 (5.0-8.0); Protein,Urine Negative (Negative); RBC,Urine 1 /hpf (0-5); Specific Gravity,Urine 1.019 (1.001-1.035); Squamous Epithelial Cell,Urine <1 /hpf (0-4); Urobilinogen,Urine <2.0 mg/dL (<2.0); WBC,Urine 1 /hpf (0-5)
[2018-06-26 14:35] LABS: MCV 89.7 fL (80.0-100.0)
[2018-06-26 14:36] LABS: INR 1.1 (<1.2); Partial Thromboplastin Time 23.6 sec (22.0-30.0); Prothrombin Time 10.9 sec (9.0-12.0)
--- NOTE | 2018-06-26 14:42 | XR ---
EXAMINATION TYPE: XR chest 2V DATE OF EXAM: 06/26/2018 COMPARISON: Chest CT May 27, 2017 HISTORY: Presurgical study. TECHNIQUE: Frontal and lateral views of the chest are obtained. FINDINGS: There is no focal air space opacity, pleural effusion, or pneumothorax seen. The cardiac silhouette size is within normal limits. The osseous structures are intact. IMPRESSION: No acute cardiopulmonary process.
[2018-06-26 14:52] LABS: Anion Gap 10 mmol/L; Blood Urea Nitrogen 15 mg/dL (9-20); Carbon Dioxide 23 mmol/L (22-30); Chloride 107 mmol/L (98-107); Glucose 179 mg/dL (74-99); Potassium 4.7 mmol/L (3.5-5.1); Sodium 140 mmol/L (137-145)
== END ==
LOC: LABPAT 13:46
PROVIDERS: ATTEND Orthopaedic Surgery Orthopaedic Surgery of the Spine
DX: Z01.818 Encounter for other preprocedural examination (principal); Z01.812 Encounter for preprocedural laboratory examination; R07.9 Chest pain, unspecified; M51.9 Unspecified thoracic, thoracolumbar and lumbosacral intervertebral disc disorder
CPT/HCPCS: 71046; 80048; 81001; 85025; 85610; 85730; 87070; 93005

== ENCOUNTER 2018-07-02 06:33 | Day surgery (SDC) | payer OTHER ==
[2018-06-30 11:51] VITALS: BMI 30.2
[~2018-07-02 06:33] MED LIST changes: +BACITRACIN 50,000 UNIT, POLYMYXIN B 500,000 UNIT in SODIUM CHLORIDE 0.9% IRRIGATIO 1,00... IRRIGATION ONE; -LACTATED RINGERS 1,000 ML IV SCH; +ceFAZolin IN SWFI 2 GM/20 ML SYRINGE IVP ONE
[2018-07-02] MEDS ORDERED: SCOPOLAMINE 1.5MG/72HR PATCH TRANSDERM ONE (06:44)
[2018-07-02] MEDS ORDERED: DEXAMETHASONE SOD PHOSPHATE 10 MG/ML 1 ML VIAL IV ONE (06:44)
[2018-07-02] MEDS ORDERED: MIDAZOLAM 2 MG/2 ML VIAL IV PRN (06:44)
[2018-07-02] MEDS ORDERED: HYDROmorphone 0.5 MG/0.5 ML SYRINGE IVP PRN (06:44)
[2018-07-02] MEDS ORDERED: ONDANSETRON 4 MG/2 ML VIAL IVP ONE (06:44)
[2018-07-02] MEDS ORDERED: LIDOCAINE 1% 20 ML VIAL (10MG/ML) FOR IV START INTRADERMA PRN (06:44)
[2018-07-02] MEDS: LACTATED RINGERS 1,000 ML IV SCH (07:08)
[2018-07-02 07:56] LABS: Glucose,Whole Blood 193 mg/dL (75-99)
[2018-07-02] MEDS ORDERED: methylPREDNISolone ACETATE 40 MG/ML 1 ML VIAL MISCELLANE ONE (08:23)
[2018-07-02] MEDS ORDERED: fentaNYL (PF) 50 MCG/ML 2 ML AMP ONE (08:23)
[2018-07-02] MEDS ORDERED: MIDAZOLAM 2 MG/2 ML VIAL ONE (08:23)
[2018-07-02] MEDS ORDERED: LIDOCAINE 0.5%-EPI 1:200,000 50 ML VIAL SQ ONE (08:23)
[2018-07-02] MEDS ORDERED: LIDOCAINE 1% INJ 10MG/ML (20 ML MDV) ONE (08:23)
[2018-07-02] MEDS ORDERED: THROMBIN (BOVINE) 5,000 UNIT VIAL TOPICAL ONE (08:23)
[2018-07-02] MEDS ORDERED: PROPOFOL 10 MG/ML 20 ML VIAL IV ONE (08:23)
[2018-07-02] MEDS ORDERED: PHENYLEPHRINE-0.9% NACL SYG 1 MG/10 ML SYRINGE ONE (08:23)
[2018-07-02] MEDS ORDERED: SUCCINYLCHOLINE CHLORIDE 100 MG/5 ML SYR IV ONE (08:23)
[2018-07-02] MEDS ORDERED: GELATIN SPONGE,ABSORB (LARGE) 1 EACH SPONGE TOPICAL ONE (08:23)
[2018-07-02] MEDS ORDERED: ePHEDrine SULFATE/0.9% NACL/PF 50 MG/5 ML SYRINGE IV ONE (08:23)
[2018-07-02] MEDS ORDERED: LACTATED RINGERS 1,000 ML IV ONE (09:08)
--- NOTE | 2018-07-02 09:18 | XR ---
Fluoroscopy INDICATION: Pain FINDINGS: Fluoroscopy time: 1 seconds. Images obtained: 1. IMPRESSIONS: 1. Documentation of fluoroscopy.
[2018-07-02] MEDS ORDERED: HYDROmorphone 1 MG/ML 1 ML SYRINGE IVP PRN ×2 (09:51)
[2018-07-02] MEDS ORDERED: IBUPROFEN 600 MG TAB PO PRN (09:51)
[2018-07-02] MEDS ORDERED: BENZOCAINE/MENTHOL LOZENG 1 EACH LOZENGE MUCOUS MEM PRN (09:51)
[2018-07-02] MEDS ORDERED: ONDANSETRON 4 MG/2 ML VIAL IVP PRN (09:51)
[2018-07-02] MEDS ORDERED: KETOROLAC 30 MG/ML 1 ML VIAL IVP PRN (09:51)
[2018-07-02] MEDS ORDERED: HYDROcodone/APAP 5-325MG 1 EACH TAB PO PRN ×2 (09:51)
[2018-07-02] MEDS ORDERED: IBUPROFEN 800 MG TAB PO PRN (09:53)
[2018-07-02] MEDS ORDERED: ACET/COD 300 MG/30 MG STARTER PACK 6 TAB BTL PO PRN (09:53)
[2018-07-02] MEDS ORDERED: CYCLOBENZAPRINE 10 MG TAB PO PRN (09:53)
--- NOTE | 2018-07-02 09:57 | P.OP ---
Date of Procedure: 07/02/18 Preoperative Diagnosis: Herniated nucleus pulposus L3 4 Right lower extremity radiculopathy Right lower extremity weakness Postoperative Diagnosis: Same with significant scar formation around the traversing nerve root at L3 4 Anesthesia: GETA Pathology: none sent Condition: stable Disposition: PACU Description of Procedure: BRIEF OPERATIVE NOTE Preoperative Diagnosis: Herniated nucleus pulposis L3 4, right lower extremity radiculopathy, right lower extremity weakness Postoperative Diagnosis: Same with significant scar tissue formation around L3 4 traversing nerve root Procedure: Laminectomy and decompression L3 4 Discectomy for decompression L3 4 Use of fluoroscopic guidance Surgeon: Dr. Ramirez Doubler Helper: Agustín Chambers is present throughout the entire the case persistence during positioning, dissection, exposure, visualization, and all crucial elements of the case as well as closure. Anesthesia: General anesthesia Estimated blood loss: approximately 50 mL Complications: None apparent Components implanted: none Disposition: To recovery room in good stable condition. OPERATIVE INDICATIONS The patient has been having issues in their lower back and lower extremities. he was having persistent pain particularly at his right lower extremity and his right anterior thigh which correlated well with that herniated disc at L3 4 was found on imaging. He actually had presented to the hospital and was admitted to the hospital in this regard. We tried aggressive conservative treatment and went through conservative care for him. The patient has been through conservative treatment. he is not having any significant lasting benefit despite aggressive conservative care and was having significant debility due to his pain and symptoms. We discussed various treatment options including surgery , and the patient wishes to proceed with surgery We discussed the risk, patient' s alternatives and benefits of surgery including but not limited to, risk of bleeding risk of infection, risk of need for further surgery, risk of decreased , loss of motion, loss of function, nerve damage, paralysis, heart attack, blindness and . OPERATIVE SUMMARY After discussing all the risks, patient alternatives and benefits at length, the patient elected to proceed with surgical intervention, signed informed consent, and presented for their procedure. The patient was seen and examined in the preoperative holding area and the surgical site was marked. The patient was given antibiotics and brought to the operating room. The patient was sedated and intubated by anesthesia in standard fashion. The patient was positioned on to the operating room table in a prone position on the appropriate frame which was well-padded and well molded. We were careful to pad any bony prominences and pressure points. We were careful to maintain the patient's cervical spine and good neutral alignment and position throughout. The patient was prepped and draped in a normal standard fashion. An appropriate timeout and keystone protocol performed. We were able to proceed with the surgery. Fluoroscopy was utilized to establish the appropriate levelAt L3 4 . The local wound area was infiltrated with local anesthetic. An incision was made at the midline longitudinally over the appropriate levelsApproximately 2-1/2 cm at L3 4 . Dissection was taken down subcutaneously to the level of the fascia which was split midline. Dissection was taken over the lamina. Intraoperative fluoroscopy was taken which showed a marker at the appropriate levelAt L3 4 . With the appropriate level positively confirmed, we were able to proceed with laminectomy. The wound was copiously irrigated and suctioned dry as had been done periodically throughout the case. I performed a laminectomy with a combination of curettes and a high-speed bur and Kerrison rongeurs. A small medial facetectomy was performed again further access. A partial foraminotomy was also performed. Portions of the ligamentum flavum were taken down to expose the dura and traversing nerve root. it was somewhat difficult to mobilize the traversing nerve root as there is significant scar tissue formation around the disc herniation adhered to the traversing nerve root. I had to take down the scar tissue formation to mobilize the nerve root over the herniated disc. I was able to mobilize the traversing nerve root and gain access to the disc space. Note was made of obvious compression from the disc. Protecting the soft tissue structures, a small annulotomy was established. I was able to perform discectomy and remove any extruded disc fragments and any loose fragments from within the disc itself. There is some disc desiccation noted. I tried to preserve the disc annulus that appeared stable. There were no further extruded fragments noted. There is no evidence of dural tear or leak. Good hemostasis maintained. The wound was copiously irrigated and suctioned dry. Good decompression and discectomy was noted. the scar tissue was taken down and he had good freely mobile nerve root. We were able to proceed with closure. The fascia was closed for a watertight closure. The subcuticular tissue was closed with absorbable suture. The wound was cleaned and dried and dressed with the appropriate dressing. The drapes were broken down. The patient was gently rolled back onto their hospital bed being careful to maintain their cervical spine and good neutral alignment and position. They were woken up by anesthesia, extubated, and brought to the recovery room in good stable condition. The patient will be admitted to the hospital for observation and for appropriate postoperative care, medical management and monitoring. We will continue to follow them closely about the postoperative course.
[2018-07-02 10:03] LABS: Glucose,Whole Blood 220 mg/dL (75-99)
[2018-07-02] MEDS ORDERED: HYDROmorphone 1 MG/ML 1 ML SYRINGE IVP ONE (10:34)
[2018-07-02] MEDS ORDERED: hydrALAZINE HCL 20 MG/ML 1 ML VIAL IVP ONE (10:52)
[2018-07-02] MEDS ORDERED: INSULIN ASPART 100 UNIT/ML 1 ML 10 ML VIAL SQ ONE (11:43)
[2018-07-02 11:51] VITALS: RESP 16
[2018-07-02 18:06] LABS: Glucose,Whole Blood 157 mg/dL (75-99)
[2018-07-02] MEDS: ceFAZolin IN SWFI 2 GM/20 ML SYRINGE IVP SCH ×2 (18:31→23:33)
[2018-07-02] MEDS: GLIMEPIRIDE 4 MG TAB PO SCH (18:32)
[2018-07-02] MEDS: metFORMIN 500 MG TAB PO SCH (18:32)
[2018-07-02 20:48] LABS: Glucose,Whole Blood 205 mg/dL (75-99)
[2018-07-02] MEDS: SODIUM CHLORIDE 0.9% 1,000 ML IV SCH (22:56)
[2018-07-03 01:26] VITALS: PULSE 82
[2018-07-03 01:52] LABS: Glucose,Whole Blood 98 mg/dL (75-99)
[2018-07-03] MEDS: SODIUM CHLORIDE 0.9% 1,000 ML IV SCH (04:39)
[2018-07-03] MEDS: LACTATED RINGERS 1,000 ML IV SCH (05:09)
[2018-07-03] MEDS: metFORMIN 500 MG TAB PO SCH (07:08)
[2018-07-03] MEDS: GLIMEPIRIDE 4 MG TAB PO SCH (07:09)
[2018-07-03 07:12] LABS: Glucose,Whole Blood 132 mg/dL (75-99)
[2018-07-03 07:14] VITALS: BP 151/88; TEMP 98.4
--- NOTE | 2018-07-03 07:53 | P.DS ---
Providers Date of admission: 07/02/18 Attending physician: Carlos Ramirez Primary care physician: Maciel Salvadorhven Hospital Course: The patient presented on the day of admission as per his operative note. He had a disc herniation L3 4 and lower extremity radiculopathy with weakness and underwent laminectomy decompression with discectomy as per his operative note. This morning he says he feels great. He is very happy with his results and his leg thus far. He says his leg is stronger and more comfortable than has been in a long time. Physical Exam The incision site is clean dry and intact. There is no erythema no drainage. There is no purulence no evidence of infection. There are some small bloody drainage on the dressing. I change the dressing and there is no active drainage there is some mild swelling there is no erythema. Abdomen soft and nontender. Chest has good excursion with deep inspiration and expiration. The patient has active and passive range of motion intact at the upper and lower extremities. There is some improvement in his strength with dorsi flexion in his right thigh. Hospital Course postoperative day #1 status post laminectomy discectomy and decompression at L3 4 on the right for his herniated nucleus pulposis with lower extremity radiculopathy and weakness. The patient has been making good progress postoperatively. he is very happy with results thus far and feels like his leg is doing much better already. He feels his strength is improving already. They have completed the prophylactic antibiotics without any signs or symptoms of infection. The patient has been able to advance their diet, and is tolerating diet adequately. The pain was initially controlled with IV medications and is now controlled appropriately with oral medications. The patient has been able to increase their mobilization. The patient has progressed appropriately. I think they are in good stable condition for discharge today. They will be sent home with appropriate prescriptions. I answered their questions to the best of my ability in a language that they can understand and they are agreeable with the plan. They will follow up as directedIn approximately 2 weeks or sooner if having any problems. Patient Condition at Discharge: Good Plan - Discharge Summary Discharge Rx Participant: Yes New Discharge Prescriptions: New Acetaminophen with Codeine [Tylenol w/codeine #3] 1 tab PO Q4H PRN 3 Days # 18 tab PRN Reason: Pain No Action metFORMIN HCL 1,000 mg PO BID Glimepiride [Amaryl] 4 mg PO BID Atorvastatin [Lipitor] 80 mg PO DAILY Lisinopril 40 mg PO DAILY Fluticasone Nasal [place] [Flonase Nasal [place]] 1 spray EA NOSTRIL DAILY Ergocalciferol (Vitamin D2) [Vitamin D2] 50,000 unit PO MO Ibuprofen [Motrin] 800 mg PO DAILY PRN PRN Reason: Pain Acetaminophen with Codeine [Tylenol w/codeine #3] 1 tab PO DAILY PRN PRN Reason: Pain Cyclobenzaprine [Flexeril] 10 mg PO DAILY PRN PRN Reason: Pain Zyflamend 1 tab PO DAILY Discharge Medication List metFORMIN HCL 1,000 mg PO BID 08/31/16 [History] Atorvastatin [Lipitor] 80 mg PO DAILY 07/23/17 [History] Glimepiride [Amaryl] 4 mg PO BID 07/23/17 [History] Fluticasone Nasal [place] [Flonase Nasal [place]] 1 spray EA NOSTRIL DAILY 03/24/18 [History] Lisinopril 40 mg PO DAILY 03/24/18 [History] Ergocalciferol (Vitamin D2) [Vitamin D2] 50,000 unit PO MO 04/21/18 [History] Acetaminophen with Codeine [Tylenol w/codeine #3] 1 tab PO DAILY PRN 06/30/18 [ History] Cyclobenzaprine [Flexeril] 10 mg PO DAILY PRN 06/30/18 [History] Ibuprofen [Motrin] 800 mg PO DAILY PRN 06/30/18 [History] Zyflamend 1 tab PO DAILY 06/30/18 [History] Acetaminophen with Codeine [Tylenol w/codeine #3] 1 tab PO Q4H PRN 3 Days #18 tab 07/02/18 [Rx] Follow up Appointment(s)/Referral(s): Carlos Ramirez DO [Doctor of Osteopathic Medicine] - 2 Weeks Activity/Diet/Wound Care/Special Instructions: May ambulate to tolerance. Avoid heavy or rigorous activity. No repetitive bending twisting or lifting. May shower with waterproof Tegaderm intact. Do not soak in a tub. On Saturday, the patient may remove dressing and then may shower with area uncovered, but leave Steri-Strips intact and allow them to fray off on their own. Do not soak in tub Discharge Disposition: HOME SELF-CARE
[2018-07-03] MEDS ORDERED: LISINOPRIL 20 MG TAB PO SCH (09:00)
[2018-07-03] MEDS ORDERED: FLUTICASONE 50MCG/SPRAY NASAL 16GM EA NOSTRIL SCH (09:00)
[2018-07-03] MEDS ORDERED: ATORVASTATIN 80 MG TAB PO SCH (09:00)
--- NOTE | 2018-07-03 14:51 | PN ---
PROGRESS NOTE CHIEF COMPLAINT: Status post laminectomy for herniated nucleus pulposus. HISTORY OF PRESENT ILLNESS: This gentleman is doing well. His legs are feeling better. He is having no pain, fever, shortness of breath, etc. He is probably going home today. PHYSICAL EXAM: His chest is clear. The cardiac exam is normal and the abdomen is soft, nontender. IMPRESSION: Lumbosacral spine degenerative disc disease and arthritis with herniated nucleus polyposis. PLAN: Home today. MMODL / IJN: [id number] /
--- NOTE | 2018-07-03 15:00 | CONS ---
CONSULTATION CHIEF COMPLAINT: Back pain and radiculopathy. HISTORY OF PRESENT ILLNESS: This is an another admission for this 58-year-old white male who has been having chronic low back pain and radiculopathy and has come in for a laminectomy. He is a fairly healthy individual that used to smoke quite a bit and has stopped. REVIEW OF SYSTEMS: He has had no headaches, syncope, neurologic problems, change in vision, hearing, cough, hemoptysis, shortness of breath, no chest pain, heart disease, palpitations, orthopnea, PND, abdominal pain, nausea, vomiting, melena, hematochezia, jaundice, pancreatitis, renal disease, etc. Past medical history, family history, personal and social histories are all unremarkable and can be found in his initial workup. He is not allergic to any medication. His medications include: Glimepiride 4 mg twice a day, atorvastatin 80, vitamin D, metformin 1 g twice a day, lisinopril 40 mg once a day, and aspirin. Past medical history, family history, social history are all otherwise unremarkable and unchanged. PHYSICAL EXAMINATION: Blood pressure was 148/88, pulse of 88, respirations 20 and he is afebrile. In general, he appeared to be slender, well developed, well nourished, in no acute distress. Skin color is normal, skin is warm, dry. Lymph nodes are not enlarged. Head, ears, eyes, nose, mouth, and throat are normal and neck veins are not distended. Thyroid is not enlarged. Chest is clear. Cardiac exam is normal and the abdomen is soft, nontender. Extremities are normal. IMPRESSION: 1. Lumbosacral spine degenerative disc disease and herniated nucleus pulposus. 2. Hypertension. 3. Chronic obstructive pulmonary disease. RECOMMENDATION: None. MMODL / IJN: [id number] /
[2018-07-07] MEDS ORDERED: ERGOCALCIFEROL 50,000 UNIT CAP PO SCH (09:00)
== END 2018-07-03 11:55 | disposition home or self-care (01) ==
LOC: OR 06:33 → 3SUR 13:49 → OR 07-03 11:55
PROVIDERS: ATTEND Orthopaedic Surgery Orthopaedic Surgery of the Spine
DX: M51.16 Intervertebral disc disorders with radiculopathy, lumbar region (principal); G89.29 Other chronic pain; M51.17 Intervertebral disc disorders with radiculopathy, lumbosacral region; M46.06 Spinal enthesopathy, lumbar region; M62.830 Muscle spasm of back; I10 Essential (primary) hypertension; E11.9 Type 2 diabetes mellitus without complications; E78.5 Hyperlipidemia, unspecified; J44.9 Chronic obstructive pulmonary disease, unspecified; Z87.891 Personal history of nicotine dependence; Z79.84 Long term (current) use of oral hypoglycemic drugs; Z79.899 Other long term (current) drug therapy; Z79.51 Long term (current) use of inhaled steroids; Z79.82 Long term (current) use of aspirin
CPT/HCPCS: 63030; 97161; 72020; J2250; J1030; J2405; J2001; J3010; J1885; J1170 ×2; J2370; J0330; J2704; J0690

== ENCOUNTER → 2019-01-19 | Outpatient (CLI) | payer OTHER ==
[2019-01-15 15:56] VITALS: BMI 32.1
[2019-01-19 13:13] VITALS: BP 154/93; PULSE 71; RESP 16
--- NOTE | 2019-01-19 13:32 | P.PAINCN ---
History of Present Illness - Reason for Consult Consult date: 01/19/19 - History of Present Illness This is 58 years old male with a chronic history of severe low back pain with radiation to the right lower extremity, patient had the lumbar laminectomy done in June 2018, and the surgery helped his low back pain significantly, after the surgery continued to have severe numbness and tingling sensation in the right lower extremity, radiated from the back towards the anterior medial aspect of the right Thigh , and right ankle, the numbness and the pain interferes with her quality of life, patient denied any change in the bowel movement or urination denies any fever or night sweats, he is able to walk and function, but the numbness and the pain interfere quality of life, he continued to use NSAID which give him some relief, Past Medical History Past Medical History: Diabetes Mellitus, Hyperlipidemia, Hypertension Additional Past Medical History / Comment(s): back pain History of Any Multi-Drug Resistant Organisms: None Reported Past Surgical History: Back Surgery Additional Past Surgical History / Comment(s): top teeth pulled, broke his nose with repair. In the early s, had an issue with his colon and they "straightened it out". Past Anesthesia/Blood Transfusion Reactions: No Reported Reaction Smoking Status: Former smoker - Past Family History Mother Family Medical History: No Reported History Additional Family Medical History / Comment(s): smoker, rheumatic heart Father Family Medical History: No Reported History Medications and Allergies Home Medications Medication Instructions Recorded Confirmed Type metFORMIN HCL 1,000 mg PO BID 08/31/16 01/19/19 History Atorvastatin [Lipitor] 80 mg PO DAILY 07/23/17 01/19/19 History Glimepiride [Amaryl] 4 mg PO BID 07/23/17 01/19/19 History Fluticasone Nasal [place] [Flonase 1 spray EA NOSTRIL DAILY 03/24/18 01/19/19 History Nasal [place]] Lisinopril 40 mg PO DAILY 03/24/18 01/19/19 History Ergocalciferol (Vitamin D2) 50,000 unit PO MO 04/21/18 01/19/19 History [Vitamin D2] Ibuprofen [Motrin] 800 mg PO QID 06/30/18 01/19/19 History Aspirin [Adult Low Dose Aspirin EC] 81 mg PO DAILY 01/15/19 01/19/19 History Allergies Allergy/AdvReac Type Severity Reaction Status Date / Time No Known Allergies Allergy Verified 01/19/19 13:02 Physical Exam Vitals: Vital Signs Pulse Resp BP Pulse Ox 01/19/19 13:04 71 16 154/93 97 Social history : not smoker , NO ETOH , NO Illegal drugs use . Review of Systems : - Constitutional : no chills , no fever , no night sweats , - Ears : no ear discharge , no change in hearing -Nose, Mouth ,Throat ; no bleeding gums, no sore throat , no epistaxis , -Cardiovascular : Denies chest pain, , no orthopnea , no palpitation -Respiratory : Denies cough , no dyspnea , no hemoptysis -Gastrointestinal :, no change in bowel habits , no coffee- ground emesis . -Genitourinary : No hematuria , no discharge , no incontinence, -Musculoskeletal : No gait dysfunction , repotes right lower extremity numbness and tingling sensation, - Neurological : no ataxia , no tremor , no sezure , -Psychatric , no suicidal ideation no hallucination - Endocrine : no cold intolerence , no polyuria , no polydypsia , -Hematologic : no easy bleeding , no easy brusing , -Allergic / immunology : no angioedema , no wheezing ,no allergic rhinitis -Integumentary : no brttle nails , no change hair / nails , no foot/leg ulcers . Physical Examinations : -Constitutional : Cooperative , not in acute distress . -HEENT : nech ; supple , no Lymphadenopathy , no Thyromegaly , :eyes , no icterus, no photophobia . ENT : , normal oropharynx , no Thrush - Respiratory : Chest clear to auscultations Bilaterally , no wheezing . - Cardiovascular : regular rate and rhythem , S1 , S2 , no S3 , no S4. - Gastrointestinal: abdomen soft no tenderness , no organomegally . - Genitourinary : Defferred . -Integumentary : No cellulitis , no ulcers , normal skin turgor , no cyanotic . - neurologic : Cranial nerve II to XII intact , no focal neurological deffecit -psychatric : alert , oriented X 3 , appropriate affect , intact judgment and insight . -Lymphatic : no Lymphadenopathy. - musculoskeltal: Lumber spine moter stegnth lower extremities ,thigh and legs 5/5 Right side , 5/5 Left side deep tendon reflexes : normal Knee Jerk , normal ankle Jerk Positive dysesthesia and the anterior medial aspect of the right thigh, and anterior medial aspect of the right leg lumber facet Loading Test negative b ilaterally Range of motion of the lumbar spine Flexion 60 degrees, extension 30 degrees strait leg raising test , positive at 30 degree right side, negative on the left side Fabere test positive RT and positive LT . Severe tenderness over the sacroiliac joint on the right side only Gaenslen test= positive on the right side only Seated flexion test= positive on the right side only. Results Comments: MRI of the lumbar spine done May 2018 reviewed Assessment and Plan Plan: Assessment and plan= 1-lumbar radiculopathy at Right L 34, L4 5 , dermatomal distribution Patient could benefit from right-sided transforaminal epidural steroid injection at L3 4 , L4 5 and fluoroscopy guidance 2-right sacroiliitis , 3-history of lumbar laminectomy surgery. Time with Patient: Greater than 30 PQRS Measure Charge Sheet Measure #130: Documentation of Current Meds in Medical Chart: Patient's medications documented in chart Measure #226: Tobacco Use: Screen & Cessation Intervention: Pt not a tobacco user Measure #111: Pneumonia Vaccination: Pneumococcal vaccine NOT administered or previously given Measure #47: Advance Care Plan: Advance care planning discussed & documented, pt chose/unable to give Measure #412: Opioid Treatment Agreement: No documentation of signed opioid treatment agreement Measure #408: Opioid Therapy Follow-up Evaluation: Patient had NO f/u eval minimum every 3 months during opioid therapy Measure #317: Preventitive Care & Scrn High Bld Press & F/U: Pre-hypertensive or hypertensive BP documented, pt will f/u with PCP Measure #128: Body Mass Index (BMI) Screening & Follow-up: BMI documented ABOVE normal parameters - f/u documented Measure #131: Pain Assessment & Follow-up: Pain positive & plan documented, Follow-up scheduled Measure #431: Unhealthy Alcohol Use Preventative Care & Scrn: Patient not identified as an unhealthy alcohol user PQRS Narrative: Smoking Status Former smoker Do You Want the Pneumonia No Vaccine AT THIS TIME? Blood Pressure 154/93 Pain Intensity [Right Lower 7 Back] Scale Used Numeric (1 - 10) Hx Alcohol Use (MH) No Home Medications: Ambulatory Orders metFORMIN HCL 1,000 mg PO BID 08/31/16 Atorvastatin [Lipitor] 80 mg PO DAILY 07/23/17 Glimepiride [Amaryl] 4 mg PO BID 07/23/17 Fluticasone Nasal [place] [Flonase Nasal [place]] 1 spray EA NOSTRIL DAILY 03/24/18 Lisinopril 40 mg PO DAILY 03/24/18 Ergocalciferol (Vitamin D2) [Vitamin D2] 50,000 unit PO MO 04/21/18 Ibuprofen [Motrin] 800 mg PO QID 06/30/18 Aspirin [Adult Low Dose Aspirin EC] 81 mg PO DAILY 01/15/19
== END ==
LOC: PNWHC3 11:52
PROVIDERS: ATTEND Specialist
DX: M54.16 Radiculopathy, lumbar region (principal); M46.1 Sacroiliitis, not elsewhere classified; E11.9 Type 2 diabetes mellitus without complications; E78.5 Hyperlipidemia, unspecified; I10 Essential (primary) hypertension; Z87.891 Personal history of nicotine dependence; Z87.898 Personal history of other specified conditions; Z79.899 Other long term (current) drug therapy; Z79.84 Long term (current) use of oral hypoglycemic drugs; Z79.1 Long term (current) use of non-steroidal anti-inflammatories (NSAID); Z79.82 Long term (current) use of aspirin
CPT/HCPCS: 99211

== ENCOUNTER 2019-01-28 05:58 | Day surgery (SDC) | payer OTHER ==
[2019-01-26 12:18] VITALS: BMI 32.1
[2019-01-28 06:46] LABS: Glucose,Whole Blood 176 mg/dL (75-99)
[2019-01-28] MEDS ORDERED: LACTATED RINGERS 1,000 ML IV ONE (06:47)
[2019-01-28 06:53] VITALS: RESP 16; TEMP 98.2
--- NOTE | 2019-01-28 07:40 | P.PCN ---
Date of Procedure: 01/28/19 Description of Procedure: PREOPERATIVE DIAGNOSIS: Lumbar radiculopathy POSTOPERATIVE DIAGNOSIS: Lumbar radiculopathy PROCEDURE 1. Transforaminal epidural steroid injection under fluoroscopic guidance right- sided L3 4 and L4 5 2. Lumbar epidurogram ANESTHESIA: Local with 1% lidocaine 5 ml ; 2 mg of Versed 50 wilver grams of fentanyl PROCEDURE DESCRIPTION / TECHNIQUE: The patient was seen and identified in the preoperative area. Risks, benefits, complications, and alternatives were discussed with the patient. The patient agreed to proceed with the procedure and signed the consent, vital signs were stable prior to the procedure. Patient was taken to the OR and time out was completed. The patient was placed in the prone position on procedure table and a pillow was placed under the abdomen to reduce lumbar lordosis. The lumbosacral area was prepped and draped in the usual sterile fashion. Vital signs were closely monitored during the procedure. Conscious sedation was used. Using oblique fluoroscopy, the chin of the "Bry dog" at the pedicle and the skin and deeper tissues just below was localized with 1% lidocaine. Subsequently, a 22-gauge 3.5-inch spinal needle was advanced under a tunneled view fluoroscopic guidance just underneath the chin of the "Bry dog". Under lateral fluoroscopy, the needle was then advanced to the posterior border interforaminal space. After negative aspiration of CSF and blood and with no paresthesias, 1 mL of Omnipaque-240 contrast dye was injected excellent epidurogram. Subsequently, 10mg/ml dexamethasone in 2ml of PFNS was injected after negative aspiration (total of 10mg of dexamethasone was used). Needle was removed. COMPLICATIONS: None DISPOSITION: The patient was placed in a supine position and transferred to the recovery area in a stable condition for observation. There was no evidence of lower extremity motor or sensory deficit after the procedure. Patient was discharged from the recovery room after meeting discharge criteria. Home discharge instructions were given to the patient by the staff. The patient was reexamined prior to discharge. Follow up as directed.
[2019-01-28] MEDS ORDERED: IV FLUID CONTINUATION 1,000 ML IV ONE (07:47)
[2019-01-28 08:05] VITALS: BP 164/86; PULSE 62
--- NOTE | 2019-01-28 09:23 | FL ---
Fluoroscopy INDICATION: Pain FINDINGS: Fluoroscopy time: 15 seconds. Images obtained: 2. IMPRESSIONS: 1. Documentation of fluoroscopy.
== END 2019-01-28 08:20 | disposition home or self-care (01) ==
LOC: ORPAIN 05:58
PROVIDERS: ATTEND Hospitalist
DX: G89.29 Other chronic pain (principal); M54.16 Radiculopathy, lumbar region; M46.1 Sacroiliitis, not elsewhere classified; E11.9 Type 2 diabetes mellitus without complications; E78.5 Hyperlipidemia, unspecified; I10 Essential (primary) hypertension; Z87.891 Personal history of nicotine dependence; Z79.84 Long term (current) use of oral hypoglycemic drugs; Z79.1 Long term (current) use of non-steroidal anti-inflammatories (NSAID); Z79.82 Long term (current) use of aspirin; Z79.899 Other long term (current) drug therapy
CPT/HCPCS: 64483; 64484; J2250; J1100; J3010; Q9966; 99152

== ENCOUNTER 2019-02-11 07:31 | Day surgery (SDC) | payer OTHER ==
[2019-02-10 08:56] VITALS: BMI 32.1
[~2019-02-11 07:31] MED LIST changes: -BACITRACIN 50,000 UNIT, POLYMYXIN B 500,000 UNIT in SODIUM CHLORIDE 0.9% IRRIGATIO 1,00... IRRIGATION ONE; +LACTATED RINGERS 1,000 ML IV SCH; -ceFAZolin IN SWFI 2 GM/20 ML SYRINGE IVP ONE
[2019-02-11 07:49] VITALS: RESP 18; TEMP 97.8
[2019-02-11 08:00] LABS: Glucose,Whole Blood 184 mg/dL (75-99)
--- NOTE | 2019-02-11 08:36 | P.PCN ---
Date of Procedure: 02/11/19 Procedure(s) Performed: PREOPERATIVE DIAGNOSIS: Lumbar radiculopathy in right L3 4, L4 5 distribution POSTOPERATIVE DIAGNOSIS: Lumbar radiculopathy in right L3 4, L4 5 distribution PROCEDURE 1. Transforaminal epidural steroid injection under fluoroscopic guidance at right L3 4, L4 5 leveles. 2. Lumbar epidurogram : ANESTHESIA: Local with 1% lidocaine 3 ml , moderate sedation with intravenous Versed 2 mg and fentanyle 50 micrograms EBL: Minimal PROCEDURE INDICATION: The patient with low back pain and radiculopathy symptoms unresponsive to conservative treatment. PROCEDURE DESCRIPTION / TECHNIQUE: The patient was seen and identified in the preoperative area. Risks, benefits, complications, and alternatives were discussed with the patient. The patient agreed to proceed with the procedure and signed the consent. IV was started, and vital signs were stable. Patient was taken to the OR and time out was completed. The patient was placed in the prone position on procedure table and a pillow was placed under the abdomen to reduce lumbar lordosis. The lumbosacral area was prepped and draped in the usual sterile fashion. Critical pause was taken. Vital signs were closely monitored during the procedure. Conscious sedation was used during the procedure to decrease patient s anxiety. Using oblique fluoroscopy, the chin of the ``Bry dog at right L3-4 level was identified, and the skin and deeper tissues just below was localized with 1% lidocaine. Subsequently, a 22-gauge 3.5-inch spinal needle was advanced under a tunneled view fluoroscopic guidance just underneath the chin of the ``Bry dog at the right L3 4. Under lateral fluoroscopy, the needle was then advanced to the posterior border of the right L3 4 interforaminal space. After negative aspiration of CSF and blood and with no paresthesias, 1 mL Isovue 200 contrast dye was injected excellent epidurogram and outlining of the nerve root Subsequently, 3 mL of block solution containing 20 mg Depo-Medrol and 2 ML of 0.9 normal saline preservative-free was injected. Needle was removed and the same procedure was repeated at the right L4 5 . At the end of the procedure, skin was cleansed, and bandages were applied. COMPLICATIONS:none DISPOSITION / PLANS: The patient was placed in a supine position and transferred to the recovery area in a stable condition for observation. There was no evidence of lower extremity motor or sensory deficit after the procedure. Patient was discharged from the recovery room after meeting discharge criteria. Home discharge instructions were given to the patient by the staff. The patient was reexamined prior to discharge.
[2019-02-11] MEDS ORDERED: IV FLUID CONTINUATION 1,000 ML IV ONE (08:38)
--- NOTE | 2019-02-11 08:44 | FL ---
EXAMINATION TYPE: FL guided pain mgmt statistic DATE OF EXAM: 02/11/2019 HISTORY: Pain Dr. Franklin supervised use of suzette for a rt side transforaminal steroid inj 10 secs fl and 1 paper im ages
[2019-02-11 08:56] VITALS: BP 149/85; PULSE 72
== END 2019-02-11 09:13 | disposition home or self-care (01) ==
LOC: ORPAIN 07:31
PROVIDERS: ATTEND Specialist
DX: M54.16 Radiculopathy, lumbar region (principal); E11.9 Type 2 diabetes mellitus without complications
CPT/HCPCS: 64483; 64484; J2250; J1030; J3010; Q9966; 99152

== ENCOUNTER → 2019-03-10 | Outpatient (CLI) | payer OTHER ==
[2019-03-10 12:47] VITALS: BP 129/85; PULSE 75; RESP 16
--- NOTE | 2019-03-10 13:00 | P.PN ---
Subjective Progress Note Date: 03/10/19 This is a pleasant 58-year-old gentleman with history of lower back pain with radiation to the right lower extremity. The patient is status post transforaminal epidural steroid injection at the L3 4 and L4 5 levels on the right side with complete relief of pain afterwards. The patient is very happy with the results. He takes ibuprofen for pain from time to time. He has a history of diabetes. He takes baby aspirin a day. Today, pt denies new-onset weakness, bowel/bladder incontinence, or any other signs or symptoms of cauda equina syndrome. There are no signs of acute intoxication, and no indications of medication diversion or overuse. In addition to above, 13-point review of systems is also negative for chest pain, shortness of breath, changes in vision, changes in hearing, new onset weakness, abdominal pain, diarrhea, extreme fatigue, malaise, fever, skin changes, homicidal or suicidal ideation, or bowel or bladder incontinence. Vital Signs: Reviewed in EMR Gen: AAOx3, NAD HEENT: PERRLA,hearing grossly normal Pulm: resp unlabored Heart: Regular Neck: supple, trachea midline Neuro exam of the lower extremities: Decreased right knee reflex compared to the left side, absent ankle reflex bilaterally. Normal muscle strength in the lower extremities bilaterally. Straight leg raising test: Negative bilaterally. Tenderness in the pavertebral musculature: No tenderness in the lumbar paravertebral musculature. Neuro: CN II-XII grossly intact, Imaging: Reviewed in EMR/chart Assessment: Right lumbar radiculopathy Lumbar postlaminectomy pain syndrome Diabetes Plan: 1. Explanation: Opioid and psychological risk scores were reviewed. Diagnoses, prognoses, and multiple treatment options including but not limited to physical therapy, interventional therapies, adjuvant medical therapies, narcotic medication therapies, and surgery were discussed with the patient and all questions were answered to the patient's satisfaction. 2. Opioid agreement: The patient does not receive opioids for his pain 3. Counseling: The patient was counseled extensively on SMOKING CESSATION, BODY MASS INDEX, EXERCISE. Specifically, the patient was instructed regarding the importance of smoking cessation, obesity, and exercise in the context of both chronic pain and overall health. 4. Procedures: None at this point 5. Consultations: None 6. Investigations: None 7. Medications: None 8. Disposition: Return to clinic as needed 9. Maps were reviewed and were appropriate. PQRS measures: 1-Patient's medications are documented in the chart. 2-Tobacco use is negative, counseling given 3-Patient has not had a pneumococcal vaccine. 4-Advanced care planning discussed, patient unable to give 5-Opioid contract not signed with the patient. 6-Pain positive, follow-up visit or procedure scheduled 7-Patient's blood pressure measured and documented within normal limits. The patient will follow up with his primary care physician. 8-Patient's weight was measured, and body mass index ABOVE the normal limits, and counseling was done. Patient instructed to follow up with PCP. 9-Patient WAS NOT identified as an unhealthy alcohol user. Objective - Vital Signs Vital signs: Vital Signs Temp Pulse 75 03/10/19 12:43 Resp 16 03/10/19 12:43 BP 129/85 03/10/19 12:43 Pulse Ox 95 03/10/19 12:43 Intake & Output 03/09/19 03/10/19 03/10/19 18:59 06:59 18:59 Weight 104.326 kg
== END | disposition home or self-care (01) ==
LOC: PNWHC3 12:39
PROVIDERS: ATTEND Anesthesiology
DX: M54.16 Radiculopathy, lumbar region (principal); M96.1 Postlaminectomy syndrome, not elsewhere classified; E11.9 Type 2 diabetes mellitus without complications; Z79.82 Long term (current) use of aspirin
CPT/HCPCS: 99211

== ENCOUNTER → 2020-04-27 | Outpatient (CLI) | payer OTHER ==
[2020-04-27 14:48] VITALS: BP 136/69; PULSE 76; RESP 16
--- NOTE | 2020-04-27 14:53 | P.PAINPG ---
Subjective Progress Note Date: 04/27/20 This is a follow-up visit for this 60 years old male, who was diagnosed with lumbar radiculopathy lumbar herniated disc disease and lumbar spondylosis, February 2019 and we have done right-sided transforaminal epidural steroid injection at L3 4, and L4 5, patient gets excellent pain relief for more than a year, and currently he is complaining of severe right-sided low back pain with radiation to the right lower extremity, associated with some numbness and tingling sensation and some weakness in his right lower extremity, the pain is constant and increases with any activity, he denies any fever or night sweats and there is no change in the bowel movement or urination, continue to use Motrin 800 mg 3 times a day without any significant improvement of his pain, Objective - Vital Signs Vital signs: Vital Signs Temp Pulse 76 04/27/20 14:31 Resp 16 04/27/20 14:31 BP 136/69 04/27/20 14:31 Pulse Ox 96 04/27/20 14:31 - Exam Physical Examinations : -Constitutiona : Cooperative , not in acute distress . -HEENT : nech : supple , no Lymphadenopathy , normal thyroid size . : eyes : no ptosis , no icterus, no photophobia . - neurologic : Cranial nerve II to XII intact , no focal neurological deffecit . -psychatric : alert , oriented X 3 , appropriate affect , intact judgment and insight . -Lymphatic : no Lymphadenopathy . - musculoskeltal : Lumber spine moter stegnth lower extremities ,thigh and legs 4/5 Right side , 5/5 Left side deep tendon reflexes : normal Knee Jerk , normal ankle Jerk lumber facet Loading Test =positive Right , positive Left Range of motion of the lumbar spine Flexion 30 degrees, extension 10 degrees strait leg raising test = positive at 30 degree on the right side and is negative on the left side Fabere test= positive Right , and right side LT . Sever tenderness over the Sacroiliac joint on the Right. Multiple trigger point identified in the right side lumbar paraspinal muscles MRI of the lumbar spine done in 2018= lumbar herniated disc disease at L3 4 L4 5, and lumbar spondylosis Assessment and Plan Plan: Assessment and plan= 1-lumbar radiculopathy at Right L 34, L4 5 , dermatomal distribution Patient could benefit from repeat right-sided transforaminal epidural steroid injection at L3 4 , L4 5 and fluoroscopy guidance Patient had excellent relief for more than one year after the transforaminal epidural steroid injection done February 2019 Patient could benefit from muscle relaxant baclofen 10 mg daily at bedtime 2-right sacroiliitis , 3-history of lumbar laminectomy surgery. Time with Patient: Less than 30 PQRS Measure Charge Sheet Measure #130: Documentation of Current Meds in Medical Chart: Patient's medications documented in chart Measure #226: Tobacco Use: Screen & Cessation Intervention: Pt not a tobacco user Measure #111: Pneumonia Vaccination: Pneumococcal vaccine NOT administered or previously given Measure #47: Advance Care Plan: Advance care planning discussed & documented, pt chose/unable to give Measure #412: Opioid Treatment Agreement: No documentation of signed opioid treatment agreement Measure #408: Opioid Therapy Follow-up Evaluation: Patient had NO f/u eval minimum every 3 months during opioid therapy Measure #317: Preventitive Care & Scrn High Bld Press & F/U: Normal blood pressure, f/u not required Measure #128: Body Mass Index (BMI) Screening & Follow-up: BMI documented ABOVE normal parameters - f/u documented Measure #131: Pain Assessment & Follow-up: Pain positive & plan documented, Follow-up scheduled Measure #431: Unhealthy Alcohol Use Preventative Care & Scrn: Patient not identified as an unhealthy alcohol user PQRS Narrative: Smoking Status Former smoker Blood Pressure 136/69 Pain Intensity [Right Lower 10 Back] Scale Used Numeric (1 - 10) Hx Alcohol Use (MH) No Home Medications: Ambulatory Orders metFORMIN HCL 1,000 mg PO BID 08/31/16 Atorvastatin [Lipitor] 80 mg PO DAILY 07/23/17 Glimepiride [Amaryl] 4 mg PO BID 07/23/17 Fluticasone Nasal [place] [Flonase Nasal [place]] 1 spray EA NOSTRIL DAILY 03/24/18 Lisinopril 40 mg PO DAILY 03/24/18 Ergocalciferol (Vitamin D2) [Vitamin D2] 50,000 unit PO MO 04/21/18 Ibuprofen [Motrin] 800 mg PO QID PRN 06/30/18 Controlled Substance Measures - Controlled Substance Measures Is patient prescribed a controlled substance at discharge?: No
== END | disposition home or self-care (01) ==
LOC: PNWHC3 13:33
PROVIDERS: ATTEND Specialist
DX: M54.16 Radiculopathy, lumbar region (principal); M46.1 Sacroiliitis, not elsewhere classified; Z98.890 Other specified postprocedural states; Z79.891 Long term (current) use of opiate analgesic; Z79.899 Other long term (current) drug therapy; Z79.84 Long term (current) use of oral hypoglycemic drugs; Z87.891 Personal history of nicotine dependence
CPT/HCPCS: 99211

== ENCOUNTER → 2020-06-02 | Day surgery (SDC) | payer OTHER ==
[2020-05-27 13:28] VITALS: BMI 32.1
[~2020-06-02] MED LIST changes: +DEXAMETHASONE SOD PHOSPHATE 10 MG/ML 1 ML VIAL ONE; +IOPAMIDOL M200 10 ML VIAL ONE; +IV FLUID CONTINUATION 1,000 ML IV ONE; +LACTATED RINGERS 1,000 ML IV ONE; +LIDOCAINE 1% INJ 10MG/ML (20 ML MDV) ONE; +MIDAZOLAM 2 MG/2 ML VIAL ONE; +fentaNYL (PF) 50 MCG/ML 2 ML AMP ONE
[2020-06-02 11:03] LABS: Glucose,Whole Blood 123 mg/dL (75-99)
[2020-06-02 11:04] VITALS: TEMP 97.8
--- NOTE | 2020-06-02 12:20 | P.PCN ---
Date of Procedure: 06/02/20 Description of Procedure: PREOPERATIVE DIAGNOSIS: Lumbar radiculopathy in right L3 4, L4 5 distribution POSTOPERATIVE DIAGNOSIS: Lumbar radiculopathy in right L3 4, L4 5 distribution PROCEDURE 1. Transforaminal epidural steroid injection under fluoroscopic guidance at right L3 4, L4 5 leveles. 2. Lumbar epidurogram : ANESTHESIA: Local with 1% lidocaine 3 ml , moderate sedation with intravenous Versed 2 mg and fentanyle 50 micrograms. sedation 16 minutes EBL: Minimal PROCEDURE INDICATION: The patient with low back pain and radiculopathy symptoms unresponsive to conservative treatment. PROCEDURE DESCRIPTION / TECHNIQUE: The patient was seen and identified in the preoperative area. Risks, benefits, complications, and alternatives were discussed with the patient. The patient agreed to proceed with the procedure and signed the consent. IV was started, and vital signs were stable. Patient was taken to the OR and time out was completed. The patient was placed in the prone position on procedure table and a pillow was placed under the abdomen to reduce lumbar lordosis. The lumbosacral area was prepped and draped in the usual sterile fashion. Critical pause was taken. Vital signs were closely monitored during the procedure. Conscious sedation was used during the procedure to decrease patient s anxiety. Using oblique fluoroscopy, the chin of the ``Bry dog at right L3-4 level was identified, and the skin and deeper tissues just below was localized with 1% lidocaine. Subsequently, a 22-gauge 3.5-inch spinal needle was advanced under a tunneled view fluoroscopic guidance just underneath the chin of the ``Bry dog at the right L3 4. Under lateral fluoroscopy, the needle was then advanced to the posterior border of the right L3 4 interforaminal space. After negative aspiration of CSF and blood and with no paresthesias, 1 mL Isovue 200 contrast dye was injected excellent epidurogram and outlining of the nerve root Subsequently, 3 mL of block solution containing 5 mg Dexamethasone and 2.5 ML of 0.9 normal saline preservative-free was injected. Needle was removed and the same procedure was repeated at the right L4 5 . At the end of the procedure, skin was cleansed, and bandages were applied. COMPLICATIONS:none DISPOSITION / PLANS: The patient was placed in a supine position and transferred to the recovery area in a stable condition for observation. There was no evidence of lower extremity motor or sensory deficit after the procedure. Patient was discharged from the recovery room after meeting discharge criteria. Home discharge instructions were given to the patient by the staff. The patient was reexamined prior to discharge.
[2020-06-02 12:29] VITALS: RESP 16
--- NOTE | 2020-06-02 12:36 | FL ---
EXAMINATION TYPE: FL guided pain mgmt statistic DATE OF EXAM: 06/02/2020 HISTORY: Fluoroscopy time 32 seconds of fluoroscopy provided. IMPRESSION: 1. Fluoroscopy time.
[2020-06-02 12:45] VITALS: BP 125/82; PULSE 73
== END ==
LOC: ORPAIN 10:31
PROVIDERS: ATTEND Anesthesiology
DX: M54.16 Radiculopathy, lumbar region (principal)
CPT/HCPCS: 64483; 64484; J2250; J1100; J2001; J3010; Q9966; 99152

== ENCOUNTER 2021-05-19 10:35 | Day surgery (SDC) | payer OTHER ==
[2021-05-16 16:25] VITALS: BMI 32.1
[~2021-05-19 10:35] MED LIST changes: -DEXAMETHASONE SOD PHOSPHATE 10 MG/ML 1 ML VIAL ONE; -IOPAMIDOL M200 10 ML VIAL ONE; -IV FLUID CONTINUATION 1,000 ML IV ONE; -LACTATED RINGERS 1,000 ML IV ONE; -LACTATED RINGERS 1,000 ML IV SCH; -LIDOCAINE 1% INJ 10MG/ML (20 ML MDV) ONE; -MIDAZOLAM 2 MG/2 ML VIAL ONE; +Pre Op ABX Message 1 EACH MISC MISCELLANE ONE; -fentaNYL (PF) 50 MCG/ML 2 ML AMP ONE
[2021-05-19] MEDS ORDERED: LACTATED RINGERS 1,000 ML IV ONE (11:00)
[2021-05-19 11:07] VITALS: RESP 16; TEMP 97.4
[2021-05-19] MEDS ORDERED: ONDANSETRON 4 MG/2 ML VIAL ONE (11:07)
[2021-05-19 11:08] LABS: Glucose,Whole Blood 127 mg/dL (75-99)
[2021-05-19] MEDS ORDERED: DEXAMETHASONE SOD PHOSPHATE 4 MG/ML 1 ML VIAL IVP ONE (11:09)
[2021-05-19] MEDS ORDERED: ONDANSETRON 4 MG/2 ML VIAL IVP ONE (11:09)
[2021-05-19] MEDS ORDERED: LIDOCAINE 2% (PF) 20 MG/ML 10 ML AMP SQ ONE ×3 (12:51→13:23)
[2021-05-19] MEDS ORDERED: fentaNYL (PF) 50 MCG/ML 2 ML AMP ONE (13:09)
[2021-05-19] MEDS ORDERED: MIDAZOLAM 2 MG/2 ML VIAL ONE (13:09)
[2021-05-19] MEDS ORDERED: PROPOFOL 10 MG/ML 20 ML VIAL IV ONE (13:09)
[2021-05-19] MEDS ORDERED: LIDOCAINE 1% INJ 10MG/ML (20 ML MDV) ONE (13:09)
--- NOTE | 2021-05-19 13:37 | P.OP ---
Date of Procedure: 05/19/21 Procedure(s) Performed: PREOPERATIVE DIAGNOSES: 1. Right Hand carpal tunnel syndrome POSTOPERATIVE DIAGNOSES: 1. Right Hand carpal tunnel syndrome PROCEDURES PERFORMED: 1. Right Hand carpal tunnel release ANESTHESIA: Local with IV sedation RN GYN: None COMPLICATIONS: None ESTIMATED BLOOD LOSS: Less than 1 mL DISPOSITION: To post-anesthesia care unit INDICATIONS: Joshua is a 61-year-old male who has had EMG/nerve conduction study confirmed carpal tunnel syndrome with unrelenting symptoms. He desires to have a carpal tunnel release as discussed in office. I discussed the steps of the surgery as well as potential risks and complications as being inclusive of, but not limited to: Bleeding, infection, scarring, discomfort, blood vessel and/or nerve damage, need for further surgery, stiffness, tendon injury, persistence or recurrence of symptoms and other risks. The patient is aware of these risks and wishes to proceed with surgery. The consent form has been signed. PROCEDURE: After appropriate consent was obtained, the patient was taken to the operating room placed in the supine position. Anesthesia was initiated, and after confirmation of adequate anesthesia, the patient was carefully positioned. Care was taken to make sure that all pressure points were adequately padded. Timeout was called, confirming patient identity, side, procedure, and no antibiotics were administered. Limb was exsanguinated with an Esmarch bandage and the tourniquet was inflated to 250 mmHg. Total tourniquet time for the case was approximately 9 minutes. Incision was created in line with the radial border of the fourth ray at the base of the palm. Incision was carried down through skin and then lightly spread down to palmar fascia. Retractors were placed. Excellent visualization of the palmar fascia was accomplished and the palmar fascia was incised to reveal the underlying transverse carpal ligament. The ligament was incised sharply using a knife and released in 1 mm increments both proximally and distally to the extent of the wound. Further fascial releases were performed in both directions using gentle push technique with curved small Metzenbaum scissors. Full release was confirmed with visual inspection and instrument palpation. The underlying structures of the carpal tunnel were noted to be fairly normal without evidence of significant tenosynovitis. Thorough irrigation was performed using normal saline. Tourniquet was deflated and combination of bipolar electrocautery and pressure was used for hemostasis. Closure was performed using vertical mattress 4-0 nylon suture. Sterile dressing was applied and further pressure was held over the wound for 3 minutes for additional hemostasis. Vascular status remained good with less than 2 second capillary refill. Patient tolerated the procedure well and taken to recovery room in stable c ondition. Counts were correct.
[2021-05-19 13:59] VITALS: BP 138/78; PULSE 62
== END 2021-05-19 14:11 | disposition home or self-care (01) ==
LOC: OR 10:35
PROVIDERS: ATTEND Orthopaedic Surgery
DX: G56.01 Carpal tunnel syndrome, right upper limb (principal); I10 Essential (primary) hypertension; E78.5 Hyperlipidemia, unspecified; E11.9 Type 2 diabetes mellitus without complications; Z79.84 Long term (current) use of oral hypoglycemic drugs; Z79.899 Other long term (current) drug therapy; Z98.890 Other specified postprocedural states; Z83.3 Family history of diabetes mellitus; Z87.891 Personal history of nicotine dependence
CPT/HCPCS: 64721; J2250; J1100; J2001 ×2; J2405; J3010; J2704

== ENCOUNTER 2021-08-04 12:26 | Day surgery (SDC) | payer OTHER ==
[2021-08-02 14:50] VITALS: BMI 32.1
[~2021-08-04 12:26] MED LIST changes: +DEXAMETHASONE SOD PHOSPHATE 4 MG/ML 1 ML VIAL IV ONE; +HYDROmorphone 0.5 MG/0.5 ML SYRINGE IVP PRN; +LACTATED RINGERS 1,000 ML IV SCH; +ONDANSETRON 4 MG/2 ML VIAL IVP ONE
[2021-08-04 13:32] VITALS: RESP 16; TEMP 96.9
[2021-08-04 13:40] LABS: Glucose,Whole Blood 96 mg/dL (75-99)
[2021-08-04] MEDS ORDERED: PROPOFOL 10 MG/ML 20 ML VIAL IV ONE (14:48)
[2021-08-04] MEDS ORDERED: fentaNYL (PF) 50 MCG/ML 2 ML AMP ONE (14:48)
[2021-08-04] MEDS ORDERED: MIDAZOLAM 2 MG/2 ML VIAL ONE (14:48)
[2021-08-04] MEDS ORDERED: SODIUM CHLORIDE 0.9% 100 ML with ceFAZolin 2,000 MG IV ONE ×2 (15:10)
[2021-08-04] MEDS ORDERED: LIDOCAINE 2% INJ 20 MG/ML SQ ONE (15:12)
--- NOTE | 2021-08-04 15:31 | P.OP ---
Date of Procedure: 08/04/21 Procedure(s) Performed: PREOPERATIVE DIAGNOSES: 1. Left wrist carpal tunnel syndrome POSTOPERATIVE DIAGNOSES: 1. Left wrist carpal tunnel syndrome PROCEDURES PERFORMED: 1. Left wrist carpal tunnel release ANESTHESIA: Local with IV sedation USABILITY SPECIALIST: None COMPLICATIONS: None ESTIMATED BLOOD LOSS: Less than 1 mL DISPOSITION: To post-anesthesia care unit INDICATIONS: Aristeo is a 61-year-old male who has had EMG/nerve conduction study confirmed carpal tunnel syndrome with unrelenting symptoms. He has successfully undergone right carpal tunnel release a few weeks ago. He desires to have the left carpal tunnel release as discussed in office. I discussed the steps of the surgery as well as potential risks and complications as being inclusive of, but not limited to: Bleeding, infection, scarring, discomfort, blood vessel and/or nerve damage, need for further surgery, stiffness, tendon injury, persistence or recurrence of symptoms and other risks. The patient is aware of these risks and wishes to proceed with surgery. The consent form has been signed. PROCEDURE: After appropriate consent was obtained, the patient was taken to the operating room placed in the supine position. Anesthesia was initiated, and after confirmation of adequate anesthesia, the patient was carefully positioned. Care was taken to make sure that all pressure points were adequately padded. Timeout was called, confirming patient identity, side, procedure, and no antibiotics were administered. Limb was exsanguinated with an Esmarch bandage and the tourniquet was inflated to 250 mmHg. Total tourniquet time for the case was approximately 9 minutes. Incision was created in line with the radial border of the fourth ray at the base of the palm. Incision was carried down through skin and then lightly spread down to palmar fascia. Retractors were placed. Excellent visualization of the palmar fascia was accomplished and the palmar fascia was incised to reveal the underlying transverse carpal ligament. The ligament was incised sharply using a knife and released in 1 mm increments both proximally and distally to the extent of the wound. Further fascial releases were performed in both directions using gentle push technique with curved small Metzenbaum scissors. Full release was confirmed with visual inspection and instrument palpation. The underlying structures of the carpal tunnel were noted to be fairly normal without evidence of significant tenosynovitis. Thorough irrigation was performed using normal saline. Tourniquet was deflated and combination of bipolar electrocautery and pressure was used for hemostasis. Closure was performed using vertical mattress 4-0 nylon suture. Sterile dressing was applied and further pressure was held over the wound for 3 minutes for additional hemostasis. Vascular status remained good with less than 2 second capillary refill. Patient tolerated the procedure well and taken to recovery room in stable condition. Counts were correct.
[2021-08-04 16:09] VITALS: BP 141/85; PULSE 58
== END 2021-08-04 16:23 | disposition home or self-care (01) ==
LOC: OR 12:26
PROVIDERS: ATTEND Orthopaedic Surgery
DX: G56.02 Carpal tunnel syndrome, left upper limb (principal); I10 Essential (primary) hypertension; E11.9 Type 2 diabetes mellitus without complications; E78.5 Hyperlipidemia, unspecified; Z79.899 Other long term (current) drug therapy; Z79.84 Long term (current) use of oral hypoglycemic drugs; Z87.891 Personal history of nicotine dependence
CPT/HCPCS: 64721; J2001; J2250; J1100; J2405; J0690; J3010; J2704

== ENCOUNTER 2022-01-25 09:10 | Observation (INO) | payer OTHER ==
[2022-01-25] MEDS ORDERED: ASPIRIN 81 MG PO STA (09:37)
--- NOTE | 2022-01-25 09:40 | ED ---
General Adult HPI - General Chief complaint: Chest Pain Stated complaint: Chest Pain/High BP Time Seen by Provider: 01/25/22 09:27 Source: patient, family Mode of arrival: ambulatory Limitations: no limitations - History of Present Illness Initial comments: Dictation was produced using [employer] dictation software. please excuse any grammatical, word or spelling errors. Chief Complaint: 61-year-old male instructed to come to the emergency department by primary care doctor for chest pain and hypertension History of Present Illness: Patient is 61-year-old male he was instructed to come here from his primary care physician Dr. Morgan. Patient states her last couple days he's been having elevated blood pressure. She takes 10 mg of amlodipine every morning for blood pressure. States that he's been checking his blood pressure of the last couple days with significantly higher measurements with systolics measurable of 200 mmHg. Patient states ulcer on the time he started to have a mild this substernal chest pressure. Pain is nonradiating no associated diaphoresis or nausea. Patient has any history of heart attacks. Patient has any cost. He does not smoke. Does not have any alcohol on reports that he does not eat heavily salty diet. The ROS documented in this emergency department record has been reviewed and confirmed by me. Those systems with pertinent positive or negative responses have been documented in the HPI. All other systems are other negative and/or noncontributory. PHYSICAL EXAM: General Impression: Alert and oriented x3, not in acute distress HEENT: Normocephalic atraumatic, extra-ocular movements intact, pupils equal and reactive to light bilaterally, mucous membranes moist. Cardiovascular: Heart regular rate and rhythm Chest: Able to complete full sentences, no retractions, no tachypnea Abdomen: abdomen soft, non-tender, non-distended, no organomegaly Musculoskeletal: Pulses present and equal in all extremities, no peripheral edema Motor: no focal deficits noted Neurological: CN II-XII grossly intact, no focal motor or sensory deficits noted Skin: Intact with no visualized rashes Psych: Normal affect and mood ED course: 61-year-old well-appearing male presents to the emergency department for hypertension and chest pain. His chest pain symptoms are atypical with typical features. Vital signs upon arrival shows blood pressure 156/93, rest of vital signs within acceptable limits. EKG shows no signs of ischemia or infarction. Patient's blood pressures were trended with stable levels. Laboratory evaluation shows normal CBC coag panel on metabolic panel. He does have a negative troponin. Disposition options were discussed. Patient is agreeable for admission for his chest pain. Patient be admitted to Dr. Morgan with consultation to cardiology. Patient given aspirin. EKG interpretation: Ventricular rate 71, sinus rhythm,. 147, QS 99, QTC 391. No AR prolongation, no QTC prolongation, no ST or T-wave changes noted. Overall, this EKG is unremarkable - Related Data Home Medications Medication Instructions Recorded Confirmed metFORMIN HCL [Glucophage] 1,000 mg PO BID 08/31/16 01/25/22 Atorvastatin [Lipitor] 80 mg PO DAILY 07/23/17 01/25/22 Glimepiride [Amaryl] 4 mg PO BID 07/23/17 01/25/22 Ergocalciferol (Vitamin D2) 50,000 unit PO Q14D 04/21/18 01/25/22 [Vitamin D2] Ibuprofen [Motrin] 800 mg PO QID PRN 06/30/18 01/25/22 Dulaglutide [Trulicity] 0.75 mg SQ MO 01/25/22 01/25/22 Tamsulosin [Flomax] 0.4 mg PO DAILY 01/25/22 01/25/22 amLODIPine [Norvasc] 10 mg PO DAILY 01/25/22 01/25/22 Allergies Allergy/AdvReac Type Severity Reaction Status Date / Time No Known Allergies Allergy Verified 01/25/22 10:04 Review of Systems ROS Statement: Those systems with pertinent positive or pertinent negative responses have been documented in the HPI. ROS Other: All systems not noted in ROS Statement are negative. Past Medical History Past Medical History: Diabetes Mellitus, Hyperlipidemia, Hypertension, Osteoarthritis (OA) Additional Past Medical History / Comment(s): Hx pos TB test/exposure/TB tx early . History of Any Multi-Drug Resistant Organisms: None Reported Past Surgical History: Back Surgery, Orthopedic Surgery Additional Past Surgical History / Comment(s): Top teeth pulled. Fx nose repair. 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] Respiratory 18 18 Rate Blood Pressure 156/93 157/100 O2 Sat by Pulse 96 96 Oximetry Medical Decision Making - Lab Data Result diagrams: 01/25/22 09:50 01/25/22 09:50 Lab Results 01/25/22 01/25/22 01/25/22 Range/Units 09:37 09:50 09:50 WBC 4.0 (3.8-10.6) k/uL RBC 5.09 (4.30-5.90) m/uL Hgb 15.4 (13.0-17.5) gm/dL Hct 45.5 (39.0-53.0) % MCV 89.4 (80.0-100.0) fL MCH 30.3 (25.0-35.0) pg MCHC 33.8 (31.0-37.0) g/dL RDW 14.1 (11.5-15.5) % Plt Count 297 (150-450) k/uL MPV 6.8 Neutrophils % (Manual) 62 % Lymphocytes % (Manual) 25 % Monocytes % (Manual) 11 % Eosinophils % (Manual) 2 % Neutrophils # (Manual) 2.48 (1.3-7.7) k/uL Lymphocytes # (Manual) 1.00 (1.0-4.8) k/uL Monocytes # (Manual) 0.44 (0-1.0) k/uL Eosinophils # (Manual) 0.08 (0-0.7) k/uL Nucleated RBCs 0 (0-0) /100 WBC Manual Slide Review Performed PT 10.8 (9.0-12.0) sec INR 1.0 (<1.2) APTT 26.5 (22.0-30.0) sec Sodium (137-145) mmol/L Potassium (3.5-5.1) mmol/L Chloride (98-107) mmol/L Carbon Dioxide (22-30) mmol/L Anion Gap mmol/L BUN (9-20) mg/dL Creatinine (0.66-1.25) mg/dL Est GFR (CKD-EPI)AfAm (>60 ml/min/1.73 sqM) Est GFR (CKD-EPI)NonAf (>60 ml/min/1.73 sqM) Glucose (74-99) mg/dL Calcium (8.4-10.2) mg/dL Magnesium (1.6-2.3) mg/dL Troponin I <0.012 (0.000-0.034) ng/mL 01/25/22 Range/Units 09:50 WBC (3.8-10.6) k/uL RBC (4.30-5.90) m/uL Hgb (13.0-17.5) gm/dL Hct (39.0-53.0) % MCV (80.0-100.0) fL MCH (25.0-35.0) pg MCHC (31.0-37.0) g/dL RDW (11.5-15.5) % Plt Count (150-450) k/uL MPV Neutrophils % (Manual) % Lymphocytes % (Manual) % Monocytes % (Manual) % Eosinophils % (Manual) % Neutrophils # (Manual) (1.3-7.7) k/uL Lymphocytes # (Manual) (1.0-4.8) k/uL Monocytes # (Manual) (0-1.0) k/uL Eosinophils # (Manual) (0-0.7) k/uL Nucleated RBCs (0-0) /100 WBC Manual Slide Review PT (9.0-12.0) sec INR (<1.2) APTT (22.0-30.0) sec Sodium 138 (137-145) mmol/L Potassium 4.2 (3.5-5.1) mmol/L Chloride 105 (98-107) mmol/L Carbon Dioxide 21 L (22-30) mmol/L Anion Gap 12 mmol/L BUN 17 (9-20) mg/dL Creatinine 0.88 (0.66-1.25) mg/dL Est GFR (CKD-EPI)AfAm >90 (>60 ml/min/1.73 sqM) Est GFR (CKD-EPI)NonAf >90 (>60 ml/min/1.73 sqM) Glucose 104 H (74-99) mg/dL Calcium 9.2 (8.4-10.2) mg/dL Magnesium 1.8 (1.6-2.3) mg/dL Troponin I (0.000-0.034) ng/mL Disposition Clinical Impression: Chest pain Disposition: ADMITTED IP TO THIS HOSP Condition: Fair Referrals: Maciel Morgan MD [Primary Care Provider] - 1-2 days Decision Time: 12:02
[2022-01-25 10:23] LABS: Partial Thromboplastin Time 26.5 sec (22.0-30.0); Prothrombin Time 10.8 sec (9.0-12.0)
[2022-01-25 10:29] LABS: HCT 45.5 % (39.0-53.0); HGB 15.4 gm/dL (13.0-17.5); MCH 30.3 pg (25.0-35.0); MCHC 33.8 g/dL (31.0-37.0); MCV 89.4 fL (80.0-100.0); Mean Platelet Volume 6.8; Platelet Count 297 k/uL (150-450); RBC 5.09 m/uL (4.30-5.90); RDW 14.1 % (11.5-15.5)
[2022-01-25 10:31] LABS: African American GFR (CKD) >90 (>60 ml/min/1.73 sqM); Anion Gap 12 mmol/L; Blood Urea Nitrogen 17 mg/dL (9-20); Calcium 9.2 mg/dL (8.4-10.2); Carbon Dioxide 21 mmol/L (22-30); Chloride 105 mmol/L (98-107); Glucose 104 mg/dL (74-99); Magnesium 1.8 mg/dL (1.6-2.3); Non-African American GFR(CKD) >90 (>60 ml/min/1.73 sqM); Potassium 4.2 mmol/L (3.5-5.1); Sodium 138 mmol/L (137-145)
--- NOTE | 2022-01-25 10:37 | XR ---
EXAMINATION TYPE: XR chest 1V portable DATE OF EXAM: 01/25/2022 Comparison: 06/26/2018 Clinical History: 61-year-old male chest pain Findings: Heart upper limits of normal in size. Aorta and pulmonary vasculature within normal limits. Mild hype rinflation and mild interstitial prominence is unchanged. No consolidation or pleural effusion. Impression: The heart is upper limits of normal in size. Correlate for possible underlying COPD. Otherwise, no ac santy process seen.
[2022-01-25 10:49] LABS: Eosinophils # (M) 0.08 k/uL (0-0.7); Monocytes # (M) 0.44 k/uL (0-1.0); Neutrophils # (M) 2.48 k/uL (1.3-7.7); Neutrophils % (M) 62 %; Nucleated Red Blood Cells 0 /100 WBC (0-0); Total Cells Counted 100
[2022-01-25] MEDS ORDERED: NITROGLYCERIN SL TABS 0.4 MG TAB SUBLINGUAL PRN (12:00)
[2022-01-25 16:54] LABS: Glucose,Whole Blood 160 mg/dL (75-99)
[2022-01-25] MEDS ORDERED: IBUPROFEN 800 MG TAB PO PRN (18:17)
--- NOTE | 2022-01-25 18:52 | HP ---
HISTORY AND PHYSICAL CHIEF COMPLAINT: Chest pain. HISTORY OF PRESENT ILLNESS: This gentleman, who is 61 years old, presented to the emergency room with chest pain. It was atypical. He did not have diaphoresis or shortness of breath. Studies in the ER were negative, but he was admitted for serial troponins and possible cardiac evaluation. REVIEW OF SYSTEMS: He has had no neurologic problems, cough, hemoptysis, fever, chills, orthopnea, PND, abdominal pain, nausea, vomiting, melena, hematochezia, jaundice, hepatitis, cirrhosis, renal failure, nocturia, frequency, urgency, hematuria, incontinence, diabetes, etc. He has a history of hypertension and urinary retention. ALLERGIES ARE NONE. Medications include: 1. Metformin 1 gram twice a day. 2. Trulicity 0.75 once a week. 3. Tamsulosin 0.5 at bedtime. 4. Amlodipine 10 mg once a day. 5. Ezetimibe 10 mg once a day. 6. Atorvastatin 80 once a day. 7. Ibuprofen. 8. Lisinopril 40 once a day. 9. Vitamin D. The remainder of his history is unremarkable. He used to smoke but does not any longer. He does not drink. PHYSICAL EXAMINATION: Blood pressure is high at 216/106 with a pulse of 88, respirations 20. He is afebrile. In general he appeared to be well developed, well nourished, in no acute distress. Skin color is normal. Skin is warm and dry. Lymph nodes are not enlarged. Head, ears, eyes, nose, mouth and throat were normal. Neck veins not distended. Thyroid not enlarged. Chest is clear. Cardiac exam is normal. The abdomen is soft and nontender. Extremities are normal. Neurologically he is intact. He is admitted to the hospital with the diagnosis: 1. Atypical chest pain. 2. Hypertension. 3. Urinary retention. 4. Type 2 [id number] diabetes mellitus. PLAN: 1. Bedrest. 2. IV fluids. 3. Serial EKGs and enzymes. MMODL / IJN: [id number] /
[2022-01-25 19:56] LABS: Glucose,Whole Blood 162 mg/dL (75-99)
[2022-01-25] MEDS: GLIMEPIRIDE 4 MG TAB PO SCH (21:27)
[2022-01-26 06:52] LABS: Glucose,Whole Blood 123 mg/dL (75-99)
[2022-01-26 07:06] VITALS: RESP 20
--- NOTE | 2022-01-26 07:52 | P.CRDCN ---
History of Present Illness Consult date: 01/26/22 History of present illness: History of Present Illness: The patient is a 61-year-old male with a known history of hypertension, hyperlipidemia and diabetes who presented with elevated blood pressure and left- sided chest discomfort. The discomfort was not activity related and at times constant. He has no prior cardiac history. He denies any prior history of myocardial infarction or congestive heart failure. He has no dizziness, palpitations or syncope. He has no peripheral edema, PND or orthopnea. He has mild dyspnea on exertion at times continues to be quite active physically. His blood pressure was elevated at home and he was concerned about it. He was diagnosed with hypertension and diabetes about 2 years ago and his hemoglobin A1c is under much better control according to him. He has stop smoking about 20 years ago. He has no recent cardiac workup. His medication at home include metformin 1 g twice a day, amlodipine 10 mg daily, Amaryl 4 mg twice a day, [place], atorvastatin 80 mg daily Review of Systems: Respiratory: He has mild dyspnea on exertion but no recent cough or wheezing GI: She had nausea and vomiting today. No history of peptic ulcer disease. No recent GI bleed. : No hematuria or dysuria. Nervous System: No stroke or seizure. Physical Examination: 61-year-old male, alert oriented no apparent distress blood pressure in the 120- 150 with a heart rate in the 70s Head: Normocephalic. Eyes: Sclerae nonicteric. Neck: Good carotid upstroke, no bruit, no jugular venous distention. Lungs: Clear to auscultation. Heart: Regular rate and rhythm, S1-S2, no S3, no rub. No murmur. Abdomen: Soft nontender, positive bowel sounds no organomegaly. Extremities: No edema, intact distal pulses. Labs: EKG shows sinus mechanism with no acute ST segment changes, troponin less than 0.012. BUN 17, creatinine 0.88, potassium 4.2 Impression: 1. Chest discomfort no evidence to suggest acute coronary syndrome in a patient with multiple risk factors 2. History of hypertension, mildly elevated 3. History of diabetes 4. History of hyperlipidemia Plan: 1. Continue home medications 2. Add CORRIE inhibitor 3. Obtain an echocardiogram with Doppler 4. Obtain a dobutamine stress echocardiogram 5. If no evidence of stress-induced ischemia no further cardiac workup will be needed. Thank you for this consult we will follow with you. Past Medical History Past Medical History: Diabetes Mellitus, Hyperlipidemia, Hypertension, Osteoarthritis (OA) Additional Past Medical History / Comment(s): Hx pos TB test/exposure/TB tx early . History of Any Multi-Drug Resistant Organisms: None Reported Past Surgical History: Back Surgery, Orthopedic Surgery Additional Past Surgical History / Comment(s): Top teeth pulled. Fx nose repair. Colonoscopy, rt and lt carpal tunnel Past Anesthesia/Blood Transfusion Reactions: No Reported Reaction Smoking Status: Former smoker - Past Family History Mother Family Medical History: No Reported History Additional Family Medical History / Comment(s): rheumatic heart Father Family Medical History: No Reported History Medications and Allergies Home Medications Medication Instructions Recorded Confirmed Type metFORMIN HCL [Glucophage] 1,000 mg PO BID 08/31/16 01/25/22 History Atorvastatin [Lipitor] 80 mg PO DAILY 07/23/17 01/25/22 History Glimepiride [Amaryl] 4 mg PO BID 07/23/17 01/25/22 History Ergocalciferol (Vitamin D2) 50,000 unit PO Q14D 04/21/18 01/25/22 History [Vitamin D2] Ibuprofen [Motrin] 800 mg PO QID PRN 06/30/18 01/25/22 History Dulaglutide [Trulicity] 0.75 mg SQ MO 01/25/22 01/25/22 History Tamsulosin [Flomax] 0.4 mg PO DAILY 01/25/22 01/25/22 History amLODIPine [Norvasc] 10 mg PO DAILY 01/25/22 01/25/22 History Allergies Allergy/AdvReac Type Severity Reaction Status Date / Time No Known Allergies Allergy Verified 01/25/22 10:04 Physical Exam Vitals: Vital Signs Temp Pulse Pulse Pulse Resp BP BP 01/26/22 07:00 98.7 F 75 20 154/84 01/26/22 01:55 98.2 F 66 16 123/69 01/25/22 22:06 80 20 01/25/22 19:54 98.2 F 80 20 137/77 01/25/22 15:21 01/25/22 14:09 98.1 F 76 16 01/25/22 13:53 75 18 01/25/22 13:07 98.0 F 75 18 01/25/22 12:59 98.0 F 72 18 156/90 01/25/22 10:55 71 18 157/100 01/25/22 10:24 71 01/25/22 09:10 97.9 F 80 18 156/93 BP Pulse Ox 01/26/22 07:00 97 01/26/22 01:55 96 01/25/22 22:06 01/25/22 19:54 01/25/22 15:21 99 01/25/22 14:09 133/81 96 01/25/22 13:53 01/25/22 13:07 155/80 97 01/25/22 12:59 97 01/25/22 10:55 96 01/25/22 10:24 01/25/22 09:10 96 Intake and Output 01/25/22 01/26/22 01/26/22 22:59 06:59 14:59 Intake Total 150 Balance 150 Intake: Oral 150 Other: Voiding Method Toilet # Voids 1 Results 01/25/22 09:50 01/25/22 09:50 Cardiac Enzymes 01/25/22 01/25/22 01/25/22 Range/Units 09:37 12:20 16:06 Troponin I <0.012 <0.012 <0.012 (0.000-0.034) ng/mL Coagulation 01/25/22 Range/Units 09:50 PT 10.8 (9.0-12.0) sec APTT 26.5 (22.0-30.0) sec CBC 01/25/22 Range/Units 09:50 WBC 4.0 (3.8-10.6) k/uL RBC 5.09 (4.30-5.90) m/uL Hgb 15.4 (13.0-17.5) gm/dL Hct 45.5 (39.0-53.0) % Plt Count 297 (150-450) k/uL Comprehensive Metabolic Panel 01/25/22 Range/Units 09:50 Sodium 138 (137-145) mmol/L Potassium 4.2 (3.5-5.1) mmol/L Chloride 105 (98-107) mmol/L Carbon Dioxide 21 L (22-30) mmol/L BUN 17 (9-20) mg/dL Creatinine 0.88 (0.66-1.25) mg/dL Glucose 104 H (74-99) mg/dL Calcium 9.2 (8.4-10.2) mg/dL Current Medications Generic Name Dose Route Start Last Admin Trade Name Juan PRN Reason Stop Dose Admin Amlodipine Besylate 10 mg 01/26/22 09:00 01/26/22 07:46 Amlodipine 10 Mg Tab PO 10 mg DAILY AUGUSTIN Administration Aspirin 325 mg 01/26/22 09:00 01/26/22 07:46 Aspirin 325 Mg Tab PO 325 mg DAILY AUGUSTIN Administration Atorvastatin Calcium 80 mg 01/26/22 09:00 01/26/22 07:46 Atorvastatin 80 Mg Tab PO 80 mg DAILY AUGUSTIN Administration Glimepiride 4 mg 01/25/22 21:00 01/25/22 21:27 Glimepiride 4 Mg Tab PO 4 mg BID AUGUSTIN Administration Ibuprofen 800 mg 01/25/22 18:17 Ibuprofen 800 Mg Tab PO QID PRN Pain Nitroglycerin 0.4 mg 01/25/22 12:00 Nitroglycerin Sl Tabs 0.4 Mg Tab SUBLINGUAL Q5M PRN Chest Pain Tamsulosin HCl 0.4 mg 01/26/22 09:00 01/26/22 07:46 Tamsulosin 0.4 Mg Cap.Er.24h PO 0.4 mg DAILY AUGUSTIN Administration Intake and Output 01/25/22 01/26/22 01/26/22 22:59 06:59 14:59 Intake Total 150 Balance 150 Intake: Oral 150 Other: Voiding Method Toilet # Voids 1 01/25/22 09:50 01/25/22 09:50
[2022-01-26] MEDS ORDERED: DOBUTamine DRIP for NUC MED 500 MG in DEXTROSE/WATER 1 250ML.BAG IV PRN (08:00)
[2022-01-26] MEDS ORDERED: TAMSULOSIN 0.4 MG CAP.ER.24H PO SCH (09:00)
[2022-01-26] MEDS ORDERED: ASPIRIN 325 MG TAB PO SCH (09:00)
[2022-01-26] MEDS ORDERED: lisinopriL 5 MG TAB PO SCH (09:00)
[2022-01-26] MEDS ORDERED: ATORVASTATIN 80 MG TAB PO SCH (09:00)
[2022-01-26] MEDS ORDERED: amLODIPine 10 MG TAB PO SCH (09:00)
[2022-01-26] MEDS ORDERED: ASPIRIN 81 MG PO SCH (09:00)
[2022-01-26] MEDS ORDERED: DOBUTamine DRIP for NUC MED 500 MG/250 ML BAG IV ONE (09:10)
[2022-01-26] MEDS ORDERED: ATROPINE SULFATE 0.1 MG/ML 10ML SYRINGE ONE (09:55)
[2022-01-26 10:43] LABS: Chol/HDL Ratio 4.31 Ratio; LDL Cholesterol,Calculated 110.6 mg/dL (0.0-131.0)
--- NOTE | 2022-01-26 12:09 | ECHOF ---
Referral Reason:cp MEASUREMENTS -------- HEIGHT: 180.3 cm WEIGHT: 101.6 kg BP: RVIDd: 3.0 cm (< 3.3) IVSd: 1.4 cm (0.6 - 1.1) LVIDd: 4.2 cm (3.9 - 5.3) LVPWd: 1.7 cm (0.6 - 1.1) LAESV Index (A-L): 17.41 ml/m Ao Diam: 3.5 cm (2.0 - 3.7) AV Cusp: 2.1 cm (1.5 - 2.6) LA Diam: 3.6 cm (2.7 - 3.8) MV EXCURSION: 20.757 mm (> 18.000) MV EF SLOPE: 93 mm/s (70 - 150) EPSS: 0.4 cm MV E Marcos: 0.64 m/s MV DecT: 218 ms MV A Marcos: 0.72 m/s MV E/A Ratio: 0.89 RAP: 5.00 mmHg RVSP: 16.94 mmHg FINDINGS -------- Sinus rhythm. This was a technically adequate study. The left ventricular size is normal. There is moderate concentric left ventricular hypertrophy. O verall left ventricular systolic function is normal with, an EF between 55 - 60 %. The diastolic fi lling pattern is normal for the age of the patient 10.01. The right ventricle is normal in size. Normal LA size by volume 22+/-6 ml/m2. The right atrial size is normal. Aortic valve is trileaflet and is mildly thickened. The mitral valve is normal. There is trace mitral regurgitation. The tricuspid valve appears structurally normal. Trace tricuspid regurgitation present. Right yosef tricular systolic pressure is normal at < 35 mmHg. There is no pulmonic regurgitation present. The aortic root size is normal. Normal inferior vena cava with normal inspiratory collapse consistent with estimated right atrial pre ssure of 5 mmHg. There is no pericardial effusion. CONCLUSIONS -------- 1. There is moderate concentric left ventricular hypertrophy. 2. Overall left ventricular systolic function is normal with, an EF between 55 - 60 %. 3. The diastolic filling pattern is normal for the age of the patient 10.01 4. Aortic valve is trileaflet and is mildly thickened. 5. There is trace mitral regurgitation. 6. Trace tricuspid regurgitation present. 7. There is no pericardial effusion. STEEL WELDER: Keiry Davis RDCS
[2022-01-26 12:14] LABS: Glucose,Whole Blood 113 mg/dL (75-99)
[2022-01-26 14:41] VITALS: BP 127/65; PULSE 85; TEMP 97.9
[2022-01-26] MEDS: GLIMEPIRIDE 4 MG TAB PO SCH (15:50)
--- NOTE | 2022-01-26 18:20 | ECHOS ---
STRESS ECHOCARDIOGRAM INDICATIONS: Chest pain BASELINE HEART RATE: 73 BASELINE BLOOD PRESSURE: 156/92 MAXIMUM HEART RATE: 140 MAXIMUM BLOOD PRESSURE: 158/77 85% MPHR: 135 100% MPHR: 159 METS: NA MAXIMUM STAGE REACHED: TOTAL EXERCISE TIME: 18:00 CLINICAL INFORMATION: Baseline rhythm is sinus mechanism, rate of 73, normal axis and intervals, rare PVCs. Baseline blood pressure 160/97 mmHg. Patient received an infusion of dobutamine per protocol and 1 mg of atropine. Peak rate 140 beats per minute, which is equal to 88% of maximum predicted heart rate. Peak blood pressure 144/80 mmHg. Electrocardiograph monitoring revealed occasional PVCs. There was no evidence of diagnostic ischemic ST deviation. FINDINGS: Baseline echocardiogram revealed normal wall thickening and motion. At peak infusion there was normal wall motion augmentation with no hypokinesis or dyskinesis. CONCLUSION: 1. Normal electrocardiograph response to dobutamine infusion. 2. Normal stress echocardiogram with no evidence of stress-induced ischemia. MMODL / IJN: [id number] /
--- NOTE | 2022-01-26 20:17 | DS ---
DISCHARGE SUMMARY CHIEF COMPLAINT: Chest pain. HISTORY OF PRESENT ILLNESS AND PHYSICAL EXAMINATION: Details of this man's history and physical can be found in the initial workup. LABORATORY STUDIES: While he was in the hospital he had laboratory studies, details of which can be found in the laboratory section of his chart. COURSE IN THE HOSPITAL: After admission he was placed on bedrest, started on intravenous fluids and had serial EKGs and enzymes, which were normal. He was seen by Cardiology. He was taken for a stress study, which was normal. It was felt that he could be discharged. He will go home on his usual activity, diet and medications. He will follow up in the office the first of the week. FINAL DIAGNOSIS: 1. Atypical chest pain. 2. History of hypertension. OPERATIONS: None. CONSULTATION: Cardiology. He is improved. MMODL / IJN: [id number] /
[2022-01-27] MEDS ORDERED: ASPIRIN 81 MG PO SCH (09:00)
== END 2022-01-26 15:51 | disposition home or self-care (01) ==
LOC: EC 09:10 → 6NMEDSUR 12:00
PROVIDERS: ADMIT Family Medicine; ATTEND Family Medicine
DX: R07.89 Other chest pain (principal); R06.09 Other forms of dyspnea; E11.9 Type 2 diabetes mellitus without complications; I10 Essential (primary) hypertension; R33.9 Retention of urine, unspecified; E78.5 Hyperlipidemia, unspecified; M19.90 Unspecified osteoarthritis, unspecified site; Z79.84 Long term (current) use of oral hypoglycemic drugs; Z79.899 Other long term (current) drug therapy; Z86.11 Personal history of tuberculosis; Z87.891 Personal history of nicotine dependence; Z98.890 Other specified postprocedural states; Z82.49 Family history of ischemic heart disease and other diseases of the circulatory system
CPT/HCPCS: 99285; 36415; 93005; 93306; 93351; 80061; 80048; 83735; 84484; 85025; 85610; 85730; 83036; 71045; G0378 ×2; J1250; J0461

== ENCOUNTER → 2022-03-23 | Outpatient (CLI) | payer OTHER ==
--- NOTE | 2022-03-23 12:43 | US ---
EXAMINATION TYPE: US chest DATE OF EXAM: 03/23/2022 COMPARISON: EXAMINATION TYPE: US chest DATE OF EXAM: 03/23/2022 COMPARISON: NONE CLINICAL HISTORY: R22.2 Mass of left chest wall. Lump left chest area below breast Scanned area of concern. Lump feels hard like a rib. No masses visualized on scan. IMPRESSION: 1. No suspicious acute changes identified. Area in question may be related to a rib. Clinical managem ent can be performed
== END | disposition home or self-care (01) ==
LOC: RADUSWWP 11:46
PROVIDERS: ATTEND Family Medicine
DX: R22.2 Localized swelling, mass and lump, trunk (principal)
CPT/HCPCS: 76604

== ENCOUNTER → 2023-04-10 | Outpatient (CLI) | payer OTHER ==
[2023-04-10 12:11] VITALS: BP 154/87; PULSE 80; RESP 18; TEMP 98.3
--- NOTE | 2023-04-10 14:20 | P.PAINPG ---
PQRS Measure Charge Sheet Comment: HISTORY OF PRESENT ILLNESS: 63 yr old male as a referral from Dr Ramirez presents today w severe and chronic LBP x 5 mo secondary to Post Laminectomy Syndrome for evaluation. Pt states pain level is provoked at 9/10 in intensity, constant, localized in the lower lumbar spine, sore in character w shooting pain towards the BLEs. Pain is provoked by bending. Pain is alleviated by sitting, physician guided home exercises & stretches almost daily x 4-5 wks, medications (Ibu), chiropractic treatments semi monthly x years, repositioning and rest. Oswetry Scale at 28. PMH: OA, DM II, Hyperlipidemia, HTN, OA PSH: R TFESI L3-L4, L4-L5 (2019), L3-L4 Laminectomy w Decompression (2018), Mandibular Teeth Extractions, Nasal Fx and Repair, Colonoscopy, BL Carpal Tunnel Surgery SH: Former tobacco user, No ETOH abuse, No illicit drug use FH: Mo- Rheumatic Heart Disease. Fa- No Reported History. All: See list Meds: See list REVIEW OF ORGAN SYSTEMS: CONSTITUTIONAL: No fevers or chills. No recent weight loss. NEUROLOGICAL: + numbness and tingling along the distal extremities. No seizure disorders or headaches. MUSCULOSKELETAL: + pain PSYCHIATRIC: Denies current depression or suicidal thoughts. Physical Examinations : Constitutional : Cooperative , not in acute distress . Neurologic : Cranial nerve II to XII intact. No focal neurological deficits. Psychiatric : alert & oriented x 3. Matching mood & appropriate affect. Judgment & insight intact. Musculoskeletal : Cervical Spine Motor strength in the deltoid and biceps: Normal right side. Normal Left side Motor strength biceps and the wrist extensors: Normal right side . Normal left side Motor strength in the triceps muscle: Normal right side. Normal left side Deep tendon reflexes: Normal at the biceps. Normal at Brachioradialis. Normal at triceps Vertebral body tenderness to deep palpation over Cervical facet loading test: positive bilaterally Spurling test: positive bilaterally Neck distraction test: positive bilaterally Karen sign: positive bilaterally Lumbar spine Motor strength lower extremities ,thigh and legs 5/5 Right side , 5/5 Left side Deep tendon reflexes : Normal Knee Jerk. Normal Ankle Jerk Vertebral body tenderness over L4 Eason Test positive Lumbar facet Loading Test: positive Right / positive Left Range of motion of the lumbar spine Flexion 30 degrees, extension 10 degrees Straight Leg Raise test: Left/ Right positive at 35 degrees Andrade test: positive right / positive left. Severe tenderness over the Sacroiliac joint on the Right / Left sides Gaenslen test: positive bilaterally Seated flexion test: positive bilaterally. Sacral spine : Severe tenderness over the Sacroiliac joint: right side / left side Range of motion: Flexion of the lumbar spine <60 degrees Range of motion: Extension of the lumbar spine <20 degrees Gaenslen's Test positive Byron's Test positive Andrade test: positive right side / left side Thigh Thrust Test Sacral Thrust Test Imaging: MRI non contrast of the Lumbar spine from 02/28/23 reviewed Assessment/ Plan : Lumbar DDD, Lumbar Stenosis secondary to Post Laminectomy Syndrome Recommendation of BL TFESI L4-L5 #1. May need a series of injections for optimal pain releif. Risks, benefits of procedure discussed and patient verbalized understanding. Admits to aspirin or anti- coagulant use or medical history of diabetes. Protocol for discontinuation/ continuation of medications wanda procedure discussed. Minimal anesthesia provided, if clinically indicated, consisting of Versed and Fentanyl. All questions answered. I have spent greater than 30 minutes on patient care today. Dr Koch was available by phone for the evaluation of this patient. The time was used to review the medical records including relevant urine studies and Prescription history (MAPs), review of the available imaging, evaluation and examination of the patient, coordination of care with the medical staff and if applicable referring physicians, as well as creation of the medical record PQRS Narrative: Smoking Status Former smoker Hx Alcohol Use (MH) No Home Medications: Ambulatory Orders metFORMIN HCL [Glucophage] 1,000 mg PO BID 08/31/16 Atorvastatin [Lipitor] 80 mg PO DAILY 07/23/17 Glimepiride [Amaryl] 4 mg PO BID 07/23/17 Ergocalciferol (Vitamin D2) [Vitamin D2] 50,000 unit PO Q14D 04/21/18 Ibuprofen [Motrin] 800 mg PO QID PRN 06/30/18 Dulaglutide [Trulicity] 0.75 mg SQ MO 01/25/22 Tamsulosin [Flomax] 0.4 mg PO DAILY 01/25/22 amLODIPine [Norvasc] 10 mg PO DAILY 01/25/22 Controlled Substance Measures - Controlled Substance Measures Is patient prescribed a controlled substance at discharge?: No
== END ==
LOC: PNWHC3 11:02
PROVIDERS: ATTEND Specialist
DX: M51.36 Other intervertebral disc degeneration, lumbar region (principal); M48.061 Spinal stenosis, lumbar region without neurogenic claudication; M96.1 Postlaminectomy syndrome, not elsewhere classified; M19.90 Unspecified osteoarthritis, unspecified site; E11.9 Type 2 diabetes mellitus without complications; E78.5 Hyperlipidemia, unspecified; I10 Essential (primary) hypertension; G89.29 Other chronic pain; Z79.84 Long term (current) use of oral hypoglycemic drugs; Z87.891 Personal history of nicotine dependence
CPT/HCPCS: 99211

== ENCOUNTER 2023-04-30 10:01 | Day surgery (SDC) | payer OTHER ==
[~2023-04-30 10:01] MED LIST changes: -DEXAMETHASONE SOD PHOSPHATE 4 MG/ML 1 ML VIAL IV ONE; -HYDROmorphone 0.5 MG/0.5 ML SYRINGE IVP PRN; -ONDANSETRON 4 MG/2 ML VIAL IVP ONE; -Pre Op ABX Message 1 EACH MISC MISCELLANE ONE
[2023-04-30 10:35] VITALS: TEMP 98.1
[2023-04-30 10:42] LABS: Glucose,Whole Blood 128 mg/dL (70-110)
[2023-04-30] MEDS ORDERED: methylPREDNISolone ACETATE 40 MG/ML 1 ML VIAL ONE (10:59)
[2023-04-30] MEDS ORDERED: IOPAMIDOL M200 10 ML VIAL ONE (10:59)
--- NOTE | 2023-04-30 11:11 | P.PCN ---
Date of Procedure: 04/30/23 Procedure(s) Performed: PREOPERATIVE DIAGNOSIS: 1-Lumbar radiculopathy . 2-lumbar postlaminectomy pain syndrome 3-lumbar spondylosis with lumbar facet arthropathy without myelopathy POSTOPERATIVE DIAGNOSIS: 1-lumbar radiculopathy. 2-lumbar postlaminectomy pain syndrome 3-lumbar spondylosis with facet arthropathy without myelopathy PROCEDURE 1. Transforaminal epidural steroid injection under fluoroscopic guidance at bilateral L4-5 level. (Fluoroscopy images stored on file in the radiology Department ) 2. Lumbar epidurogram . ANESTHESIA: Local with 1% lidocaine 3 ml. EBL: Minimal PROCEDURE INDICATION: The patient with low back pain and radiculopathy symptoms unresponsive to conservative treatment. PROCEDURE DESCRIPTION / TECHNIQUE: The patient was seen and identified in the preoperative area. Risks, benefits, complications, and alternatives were discussed with the patient. The patient agreed to proceed with the procedure and signed the consent. IV was started, and vital signs were stable. Patient was taken to the OR and time out was completed. The patient was placed in the prone position on procedure table and a pillow was placed under the abdomen to reduce lumbar lordosis. The lumbosacral area was prepped and draped in the usual sterile fashion. Critical pause was taken. Vital signs were closely monitored during the procedure. Using oblique fluoroscopy, the chin of the `AlexanderBry dog at right L4-5 level was identified, and the skin and deeper tissues just below was localized with 1% lidocaine. Subsequently, a 22-gauge 3.5-inch spinal needle was advanced under a tunneled view fluoroscopic guidance just underneath the chin of the `Grisy dog at the right L4-5 Under lateral fluoroscopy, the needle was then advanced to the posterior border of the interforaminal space. After negative aspiration of CSF and blood and with no paresthesias, 1 mL Isovue 200 contrast dye was injected excellent epidurogram and outlining of the nerve root Subsequently, 2 mL of block solution containing 20 mg Depo-Medrol and 2 mL of 0.9% normal saline PF was injected. Needle was removed and the same procedure was repeated at the left L4-5 level . At the end of the procedure, skin was cleansed, and bandages were applied. COMPLICATIONS:none DISPOSITION / PLANS: The patient was placed in a supine position and transferred to the recovery area in a stable condition for observation. There was no evidence of lower extremity motor or sensory deficit after the procedure. Patient was discharged from the recovery room after meeting discharge criteria. Home discharge instructions were given to the patient by the staff. The patient was reexamined prior to discharge.
[2023-04-30 11:14] VITALS: BP 161/77; PULSE 66; RESP 16
--- NOTE | 2023-04-30 15:23 | FL ---
EXAMINATION TYPE: FL guided pain mgmt statistic DATE OF EXAM: 04/30/2023 FLUOROSCOPY Fluoroscopy time of 11.5 seconds was used during bilateral lumbar transforaminal epidural steroid inj ection. 2 image/s document/s the procedure. DOSE AREA PRODUCT (DAP) UGY*M,MGY*CM: 0.027
== END 2023-04-30 11:34 | disposition home or self-care (01) ==
LOC: ORPAIN 10:01
PROVIDERS: ATTEND Specialist
DX: M47.26 Other spondylosis with radiculopathy, lumbar region (principal); M96.1 Postlaminectomy syndrome, not elsewhere classified; Z79.82 Long term (current) use of aspirin
CPT/HCPCS: 64483; J1030; Q9966

== ENCOUNTER → 2023-06-19 | Outpatient (CLI) | payer OTHER ==
--- NOTE | 2023-06-19 11:40 | XR ---
EXAMINATION TYPE: XR chest 2V DATE OF EXAM: 06/19/2023 COMPARISON: 01/25/2022 INDICATION: Preprocedural examination TECHNIQUE: Frontal and lateral views of the chest are obtained. FINDINGS: The heart size is normal. The pulmonary vasculature is normal. The lungs are clear. IMPRESSION: 1. No acute pulmonary process.
== END | disposition home or self-care (01) ==
LOC: RADXRMAIN 09:47
PROVIDERS: ATTEND Orthopaedic Surgery Orthopaedic Surgery of the Spine
DX: Z01.818 Encounter for other preprocedural examination (principal); M48.062 Spinal stenosis, lumbar region with neurogenic claudication; M54.16 Radiculopathy, lumbar region
CPT/HCPCS: 71046

== ENCOUNTER → 2023-06-24 | Outpatient (CLI) | payer OTHER ==
[2023-06-24 14:29] LABS: INR 0.9 (<1.2); Partial Thromboplastin Time 24.1 sec (22.0-30.0)
[2023-06-24 19:49] LABS: Appearance,Urine Clear (Clear); Bilirubin,Urine Negative (Negative); Blood,Urine Negative (Negative); Color,Urine Yellow (Yellow); Ketones,Urine Trace (Negative); Nitrite,Urine Negative (Negative); Specific Gravity,Urine 1.021 (1.001-1.030); Urobilinogen,Urine 0.2 E.U./DL
[2023-06-24 21:35] LABS: BUN/Creat Ratio 14.18 Ratio (12.00-20.00); Blood Urea Nitrogen 15.6 mg/dL (9.0-27.0); Calcium 9.9 mg/dL (8.7-10.3); Carbon Dioxide 22.6 mmol/L (21.6-31.8); Chloride 104 mmol/L (96-109); Glucose 113 mg/dL (70-110); Potassium 4.9 mmol/L (3.5-5.5); Sodium 139 mmol/L (135-145)
[2023-06-24 22:08] LABS: Basophils # (A) 0.05 X 10*3/uL (0.00-0.10); Basophils % (A) 0.7 %; Eosinophils # (A) 0.14 X 10*3/uL (0.04-0.35); HGB 14.1 d/dL (13.0-17.0); Lymphocytes % (A) 30.8 %; MCH 30.1 pg (27.0-32.0); MCHC 34.4 d/dL (32.0-37.0); MCV 87.6 FL (80.0-97.0); Mean Platelet Volume 9.2 FL (9.5-12.2); Monocytes # (A) 0.68 X 10*3/uL (0.20-1.00); Monocytes % (A) 9.5 %; NRBC Per 100 WBC 0 X 10*3/uL (0.00-0.01); Neutrophils # (A) 4.02 X 10*3/uL (1.80-7.70); Neutrophils % (A) 56.3 %; Platelet Count 287 X 10*3/uL (140-440); RBC 4.68 X 10*6/uL (4.40-5.60); RDW 13.5 % (11.5-14.5); WBC 7.14 X 10*3/uL (4.50-10.00)
== END | disposition home or self-care (01) ==
LOC: LABPAT 13:43
PROVIDERS: ATTEND Orthopaedic Surgery Orthopaedic Surgery of the Spine
DX: Z01.818 Encounter for other preprocedural examination (principal); M48.00 Spinal stenosis, site unspecified
CPT/HCPCS: 80048; 81003; 85025; 85610; 85730; 87070

== ENCOUNTER 2023-07-27 22:26 | Emergency (ER) | payer OTHER ==
[2023-07-27 22:37] VITALS: PULSE 90; RESP 18; TEMP 98.2
--- NOTE | 2023-07-27 23:18 | ED ---
Male Urogenital HPI - General Chief complaint: Urogenital Stated complaint: Blood in catheter Time Seen by Provider: 07/27/23 22:58 Source: patient Mode of arrival: ambulatory Limitations: no limitations - History of Present Illness Initial comments: Joshua is a pleasant 63 yo M who currently has a Montague catheter in place after developing urinary retention after spinal surgery. Patient is scheduled to have a Montague catheter until August 02. Patient reports he's had no palpitations with catheter but today he noted some urine that appeared to be cranberry juice in color, he then passed a blood clot in his urine cleared up completely. He has no pain no fever no discomfort whatsoever but this has never happened in the 2 weeks and sees had the catheter site that he should be evaluated. - Related Data Home Medications Medication Instructions Recorded Confirmed Atorvastatin [Lipitor] 80 mg PO QAM 07/23/17 06/27/23 Glimepiride [Amaryl] 2 mg PO BID 07/23/17 06/27/23 Ergocalciferol (Vitamin D2) 50,000 unit PO Q30D 04/21/18 06/27/23 [Vitamin D2] Ibuprofen [Motrin] 800 mg PO QID PRN 06/30/18 06/27/23 Dulaglutide [Trulicity] 0.75 mg SQ MO 01/25/22 06/27/23 amLODIPine [Norvasc] 10 mg PO QAM 01/25/22 06/27/23 Aspirin 81 mg PO DAILY 04/25/23 06/27/23 lisinopriL 40 mg PO QAM 04/25/23 06/27/23 Previous Rx's Medication Instructions Recorded Cyclobenzaprine [Flexeril] 10 mg PO TID PRN #60 tab 07/05/23 HYDROcodone/APAP 7.5-325MG [[place] 1 each PO Q4HR PRN #42 tab 07/05/23 7.5-325] Sennosides-Docusate Sodium 1 tab PO BID PRN #60 tablet 07/05/23 [Senokot-S] Cephalexin [Keflex] 500 mg PO Q6HR 7 Days #28 cap 07/28/23 Allergies Allergy/AdvReac Type Severity Reaction Status Date / Time No Known Allergies Allergy Verified 07/03/23 06:51 Review of Systems ROS Statement: Those systems with pertinent positive or pertinent negative responses have been documented in the HPI. ROS Other: All systems not noted in ROS Statement are negative. Past Medical History Past Medical History: Diabetes Mellitus, Hyperlipidemia, Hypertension, Osteoarthritis (OA) Additional Past Medical History / Comment(s): Pain in back and legs. History of Any Multi-Drug Resistant Organisms: None Reported Past Surgical History: Back Surgery, Orthopedic Surgery Additional Past Surgical History / Comment(s): Top teeth pulled, repair nose fracture, colonoscopy, bilateral carpal tunnel surgery. Past Anesthesia/Blood Transfusion Reactions: No Reported Reaction Past Psychological History: No Psychological Hx Reported Smoking Status: Former smoker Past Alcohol Use History: None Reported Past Drug Use History: None Reported - Past Family History Mother Family Medical History: No Reported History Additional Family Medical History / Comment(s): Rheumatic heart. Father Family Medical History: No Reported History General Exam - General Exam Comments Initial Comments: Physical Exam GENERAL: Patient is well-developed and well-nourished. Patient is nontoxic and well-hydrated and is in no distress. HENT: Normocephalic, Atraumatic EYES: PERRL, EOMI PULMONARY: Unlabored respirations CARDIOVASCULAR: Well perfused extremities ABDOMEN: Non-distended, nontender SKIN: No rashes or bruising All healing surgical incisions on back : Montague catheter in place, clear urine draining, noted to have a small blood clot measuring less than 1 cm in the bag NEUROLOGIC: Alert and oriented Normal speech Normal gait MUSCULOSKELETAL: Moving all extremities with no apparent injury PSYCHIATRIC: No SI/HI Limitations: no limitations Course Vital Signs 07/27/23 07/28/23 22:28 00:22 Temperature 98.2 F Pulse Rate 90 90 Respiratory 18 18 Rate Blood Pressure 138/80 112/71 O2 Sat by Pulse 97 98 Oximetry Medical Decision Making - Medical Decision Making Was pt. sent in by a medical professional or institution (, PA, APPLICATIONS INTERN, urgent care, hospital, or longterm...) When possible be specific @ -No Did you speak to anyone other than the patient for history (EMS, parent, family, police, friend...)? What history was obtained from this source @ -No Did you review nursing and triage notes (agree or disagree)? Why? @ -I reviewed and agree with nursing and triage notes Were old charts reviewed (outside hosp., previous admission, EMS record, old EKG, old radiological studies, urgent care reports/EKG's, longterm records)? Report findings @ -No old charts were reviewed Differential Diagnosis (chest pain, altered mental status, abdominal pain women, abdominal pain men, vaginal bleeding, weakness, fever, dyspnea, syncope, headache, dizziness, GI bleed, back pain, seizure, CVA, palpatations, mental health, musculoskeletal)? @ -Differential diagnosis includes hematuria due to trauma, urinary tract infection, AVM, clotting disorder EKG interpreted by me (3pts min.). @ -As above X-rays interpreted by me (1pt min.). @ -None done CT interpreted by me (1pt min.). @ -None done U/S interpreted by me (1pt. min.). @ -None done What testing was considered but not performed or refused? (CT, X-rays, U/S, labs)? Why? @ -None What meds were considered but not given or refused? Why? @ -None Did you discuss the management of the patient with other professionals (professionals i.e. , PA, APPLICATIONS INTERN, lab, RT, psych nurse, child welfare social worker, air director, teacher, corporation officer, caseworker protective services)? Give summary @ -No Was smoking cessation discussed for >3mins.? @ -No Was critical care preformed (if so, how long)? @ -No Were there social determinants of health that impacted care today? How? (Homelessness, low income, unemployed, alcoholism, drug addiction, transportation, low edu. Level, literacy, decrease access to med. care, prison, rehab)? @ -No Was there de-escalation of care discussed even if they declined (Discuss DNR or withdrawal of care, Hospice)? DNR status @ -No What co-morbidities impacted this encounter? (DM, HTN, Smoking, COPD, CAD, Cancer, CVA, ARF, Chemo, Hep., AIDS, mental health diagnosis, sleep apnea, morbid obesity)? @ -None Was patient admitted / discharged? Hospital course, mention meds given and route, prescriptions, significant lab abnormalities, going to OR and other pertinent info. @ - Discharge Undiagnosed new problem with uncertain prognosis? @ -No Drug Therapy requiring intensive monitoring for toxicity (Heparin, Nitro, Insulin, Cardizem)? @ -No Were any procedures done? @ -No Diagnosis/symptom? @ -Catheter associated urinary tract infection Acute, or Chronic, or Acute on Chronic? @ -Acute Uncomplicated (without systemic symptoms) or Complicated (systemic symptoms)? @ -Uncomplicated Side effects of treatment? @ -Side effect of catheter use Exacerbation, Progression, or Severe Exacerbation? @ -No Poses a threat to life or bodily function? How? (Chest pain, [place], [place], pneumonia, PE, COPD, DKA, ARF, appy, cholecystitis, CVA, Diverticulitis, Homicidal, Suicidal, threat to staff... and all critical care pts) @ -No - Lab Data Lab Results 07/27/23 Range/Units 23:05 Urine Color Colorless Urine Appearance Clear (Clear) Urine pH 6.5 (5.0-8.0) Ur Specific [place] 1.006 (1.001-1.035) Urine Protein Negative (Negative) Urine Glucose (UA) Negative (Negative) Urine Ketones Negative (Negative) Urine Blood Large H (Negative) Urine Nitrite Positive (Negative) Urine Bilirubin Negative (Negative) Urine Urobilinogen <2.0 (<2.0) mg/dL Ur Leukocyte Esterase Large H (Negative) Urine RBC 14 H (0-5) /hpf Urine WBC 72 H (0-5) /hpf Urine WBC Clumps Rare H (None) /hpf Urine Bacteria Rare H (None) /hpf Urine Mucus Rare H (None) /hpf Disposition Clinical Impression: Catheter-associated urinary tract infection Disposition: HOME SELF-CARE Condition: Stable Instructions (If sedation given, give patient instructions): Urinary Tract Inf ection in Men (ED) Prescriptions: Cephalexin [Keflex] 500 mg PO Q6HR 7 Days #28 cap Is patient prescribed a controlled substance at d/c from ED?: No Referrals: Maciel Morgan MD [Primary Care Provider] - 1-2 days
[2023-07-27 23:46] LABS: Appearance,Urine Clear (Clear); Bacteria,Urine Rare /hpf; Bilirubin,Urine Negative (Negative); Blood,Urine Large (Negative); Color,Urine Colorless; Glucose,Urine (UA) Negative (Negative); Ketones,Urine Negative (Negative); Leukocyte Esterase,Urine Large (Negative); Mucus,Urine Rare /hpf; Nitrite,Urine Positive (Negative); PH, Urine 6.5 (5.0-8.0); Protein,Urine Negative (Negative); RBC,Urine 14 /hpf (0-5); Specific Gravity,Urine 1.006 (1.001-1.035); Urobilinogen,Urine <2.0 mg/dL (<2.0); WBC,Urine 72 /hpf (0-5)
[2023-07-27] MEDS ORDERED: CEPHALEXIN 500MG STARTER PACK 4 CAP BTL PO STA (23:59)
[2023-07-28] MEDS ORDERED: CEPHALEXIN 500MG STARTER PACK 4 CAP BTL PO ONE (00:30)
[2023-07-28 00:39] VITALS: BP 112/71
== END 2023-07-28 00:23 | disposition home or self-care (01) ==
LOC: EC 22:26
DX: T83.518A Infection and inflammatory reaction due to other urinary catheter, initial encounter (principal); E11.9 Type 2 diabetes mellitus without complications; E78.5 Hyperlipidemia, unspecified; I10 Essential (primary) hypertension; M19.90 Unspecified osteoarthritis, unspecified site; Z87.891 Personal history of nicotine dependence; Z79.84 Long term (current) use of oral hypoglycemic drugs; Z79.1 Long term (current) use of non-steroidal anti-inflammatories (NSAID); Z79.82 Long term (current) use of aspirin; Z79.899 Other long term (current) drug therapy
CPT/HCPCS: 81001; 87086; 99283

== ENCOUNTER 2024-05-12 07:25 | Day surgery (SDC) | payer OTHER ==
[2024-05-07 13:22] VITALS: BMI 31.5
[2024-05-12 07:46] VITALS: RESP 16; TEMP 97.1
[2024-05-12] MEDS: LACTATED RINGERS 1,000 ML IV SCH (07:55)
[2024-05-12] MEDS: IV FLUID CONTINUATION 1,000 ML IV ONE (07:55)
[2024-05-12 07:58] LABS: Glucose,Whole Blood 143 mg/dL (70-110)
[2024-05-12] MEDS ORDERED: PROPOFOL 10 MG/ML 20 ML VIAL IV ONE (08:38)
--- NOTE | 2024-05-12 08:40 | P.GSHP ---
History of Present Illness H&P Date: 05/12/24 Chief Complaint: Colon cancer screening 64-year-old male here for colonoscopy. Last colonoscopy 7 years ago. Small polyp adenomatous in the sigmoid colon seen at that time. Patient describes some numbness posterior to the anus this started after spinal surgery a few years ago. No family history of colon cancer. Past Medical History Past Medical History: Diabetes Mellitus, Hyperlipidemia, Hypertension, Osteoarthritis (OA) Additional Past Medical History / Comment(s): Pain in back and legs. History of Any Multi-Drug Resistant Organisms: None Reported Past Surgical History: Back Surgery, Orthopedic Surgery Additional Past Surgical History / Comment(s): Top teeth pulled, repair of nose fracture, colonoscopy, bilateral carpal tunnel surgery. Past Anesthesia/Blood Transfusion Reactions: No Reported Reaction Smoking Status: Former smoker - Past Family History Mother Family Medical History: No Reported History Additional Family Medical History / Comment(s): Rheumatic heart. Father Family Medical History: No Reported History Medications and Allergies Home Medications Medication Instructions Recorded Confirmed Type Atorvastatin [Lipitor] 80 mg PO QAM 07/23/17 05/07/24 History Ergocalciferol (Vitamin D2) 50,000 unit PO Q30D 04/21/18 05/07/24 History [Vitamin D2] Ibuprofen [Motrin] 800 mg PO QID PRN 06/30/18 05/07/24 History amLODIPine [Norvasc] 10 mg PO QAM 01/25/22 05/07/24 History Aspirin 81 mg PO DAILY 04/25/23 05/12/24 History lisinopriL 40 mg PO QAM 04/25/23 05/07/24 History Insulin Glargine [Lantus Vial] 20 unit SQ QAM 05/07/24 05/12/24 History Allergies Allergy/AdvReac Type Severity Reaction Status Date / Time No Known Allergies Allergy Verified 05/12/24 07:46 Surgical - Exam Vital Signs Temp Pulse Resp BP Pulse Ox 97.1 F L 71 16 158/85 95 05/12/24 07:45 05/12/24 07:45 05/12/24 07:45 05/12/24 07:45 05/12/24 07:45 Physical exam: General: Well-developed, well-nourished HEENT: Normocephalic, sclerae nonicteric Abdomen: Nontender, nondistended Extremities: No edema Neuro: Alert and oriented Results - Labs Abnormal Lab Results - Last 24 Hours (Table) 05/12/24 Range/Units 07:51 POC Glucose (mg/dL) 143 H (70-110) mg/dL Assessment and Plan (1) Colon cancer screening Narrative/Plan: Will proceed with colonoscopy at this time. Current Visit: No Status: Acute Code(s): Z12.11 - ENCOUNTER FOR SCREENING FOR MALIGNANT NEOPLASM OF COLON SNOMED Code(s): 837356107
--- NOTE | 2024-05-12 08:48 | P.PCN ---
Date of Procedure: 05/12/24 Procedure(s) Performed: PREOPERATIVE DIAGNOSIS: Colon cancer screening POSTOPERATIVE DIAGNOSIS: Normal exam PROCEDURE: Colonoscopy ANESTHESIA: MAC SURGEON: Rj Salinas M.D. SPECIMENS: None ENDOSCOPIC PROCEDURE: The patient was placed on the endoscopy table in the left decubitus position. The Olympus colonoscope was inserted into the anus and passed under direct visualization to the base of the cecum. The appendiceal orifice was visualized. From that point the scope was slowly withdrawn inspecti ng all surfaces carefully. There were no neoplastic inflammatory or polypoid lesions throughout the cecum, ascending, transverse, descending, sigmoid and rectum. There was no visible diverticulosis noted. Digital rectal examination was normal. The patient was taken to the recovery room in stable condition per anesthesia guidelines. RECOMMENDATIONS: Resume diet. Repeat colonoscopy 7 years.
[2024-05-12 09:10] VITALS: BP 139/90; PULSE 69
== END 2024-05-12 09:25 | disposition home or self-care (01) ==
LOC: ORWHC2ENDO 07:25
PROVIDERS: ATTEND Surgery
DX: Z12.11 Encounter for screening for malignant neoplasm of colon (principal); E11.9 Type 2 diabetes mellitus without complications; I10 Essential (primary) hypertension; R20.0 Anesthesia of skin; E78.5 Hyperlipidemia, unspecified; M54.50 Low back pain, unspecified; M19.90 Unspecified osteoarthritis, unspecified site; Z87.891 Personal history of nicotine dependence; Z79.02 Long term (current) use of antithrombotics/antiplatelets; Z79.1 Long term (current) use of non-steroidal anti-inflammatories (NSAID); Z79.899 Other long term (current) drug therapy; Z79.82 Long term (current) use of aspirin; Z79.84 Long term (current) use of oral hypoglycemic drugs
CPT/HCPCS: 45378; J2704

== ENCOUNTER → 2024-09-22 | Outpatient (CLI) | payer OTHER ==
--- NOTE | 2024-09-22 10:56 | US ---
EXAMINATION TYPE: US prostate transrectal DATE OF EXAM: 09/22/2024 COMPARISON: NONE CLINICAL INDICATION: Male, 64 years old with history of N40.0 ENLARGED PROSTATE; TECHNIQUE: Grayscale and color Doppler imaging of the prostate gland. This examination was performed using the transrectal probe. EXAM MEASUREMENTS: Gland Size: 6.5 x 4.2 x 6.0cm Volume: 86.4ml Predicted PSA: 10.36 Actual PSA (if available):2.86 09/01/2024 Enlarged heterogeneous gland with 1.1cm anechoic area seen mid prostate suggestive of cyst. IMPRESSION: 1. Cyst suggested within the prostate gland, this can be confirmed with MRI pelvis as clinically war ranted. No solid masses definitively visualized. Note that prostate MRI is a more sensitive exam for the detection of clinically significant prostate adenocarcinoma. Predicted PSA = volume x 0.12 ng/ml Calculated Volume = 0.5236 x L x W x H [facility], , 09/22/2024 10:54 AM
== END | disposition home or self-care (01) ==
LOC: RADUSWWP 09:28
PROVIDERS: ATTEND Family Medicine
DX: N40.0 Benign prostatic hyperplasia without lower urinary tract symptoms (principal)
CPT/HCPCS: 76872